=== PATIENT | female | born 1940 | race Caucasian/White ===

== ENCOUNTER 2017-01-05 12:52 | Inpatient (IN) ==
--- NOTE | 2017-01-05 12:57 | Emergency Department Note ---
Disposition Clinical Impression: Small bowel obstruction, Ventral hernia with bowel obstruction Disposition: Admitted As Inpatient Condition: Fair Referrals: Bj Card MD [Primary Care Provider] - Forms: ED Satisfaction Letter Nausea/Vomiting/Diarrhea HPI - General Chief complaint: ED Nausea/Vomiting/Diarrhea Stated complaint: nausea since last night Time Seen by Provider: 01/05/17 12:57 Source: EMS Limitations: no limitations Nursing Notes Reviewed: Yes Vital Signs Reviewed: Yes - History of Present Illness Pt Subjective Complaint: nausea, vomiting Onset (ago): day(s) (1) Description of emesis: watery Associated Abdominal Pain: Yes If pain, Location of pain: diffuse Severity: moderate Quality: cramping, stabbing Consistency: intermittent Improves with: nothing Worsens with: vomiting Context: history of abdominal surgery Associated symptoms: Reports: loss of appetite, nausea/vomiting. Denies: diaphoresis, fever/chills, shortness of breath - Related Data Home Medications Medication Instructions Recorded Confirmed ALPRAZolam [Xanax 0.5 MG Tablet] 0.5 mg PO DAILY PRN 03/09/16 03/09/16 Carbidopa/Levodopa 1 tab PO TID 03/09/16 03/09/16 [Carbidopa-Levodopa 25-100 Tab] HYDROcodone/Acet 5/325 mg [[place] 1 tab PO DAILY PRN 03/09/16 03/09/16 5-325 mg] Previous Rx's Medication Instructions Recorded Albuterol Sulfate [Albuterol 2 puff IH Q4HR #1 hfa.aer.ad 06/03/16 Inhaler] Allergies Allergy/AdvReac Type Severity Reaction Status Date / Time No Known Allergies Allergy Verified 03/09/16 15:13 All systems ED: reviewed and negative except as stated. Constitutional: Denies: fever, chills, weakness Gastrointestinal: Reports: abdominal pain. Denies: nausea, vomiting Past Medical History - Past Medical History Source: patient, old records reviewed, obtained from family, nursing notes reviewed Medical history: Reports: hyperlipidemia, hypertension, myocardial infarction Surgical history: Reports: non-contributory Psychiatric history: Reports: anxiety, depression - Social History Smoking Status: Never smoker Smokeless Tobacco Status: No Alcohol use: Reports: none Drug use: Reports: none Physical Exam - General Limitations: no limitations - Head Head exam: atraumatic, normocephalic, normal inspection - Eye Eye exam: Present: normal appearance, PERRL, EOMI - ENT ENT exam: normal exam, normal oropharynx, mucous membranes moist - Neck Neck exam: Present: normal inspection, full ROM, trachea midline - Chest Chest inspection: Present: normal inspection, symmetric chest wall rise - Respiratory Respiratory exam: Present: normal lung sounds bilaterally - Cardiovascular Cardiovascular exam: Present: regular rate, normal rhythm, normal heart sounds - Abdominal Exam Abdominal exam: Present: soft, guarding, normal bowel sounds Abdominal tenderness: Present: diffuse, moderate - Extremities Exam Extremities exam: Present: normal inspection, full ROM. Absent: tenderness, pedal edema - Back Exam Back exam: Present: normal inspection, full ROM. Absent: tenderness - Neurological Exam Neurological exam: Present: alert, oriented X3 - Psychiatric Psychiatric exam: Present: normal affect, normal mood - Skin Skin exam: Present: warm, dry, intact, normal color Course Course Narrative: reduced the hernia in the ER will make the hospitalist service he has a plan for surgical intervention tomorrow. - Consultations Consultation #1: dr. frances to see in ER now Time: 15:46 Vital Signs Temperature 98.1 F 01/05/17 12:53 Pulse Rate 100 01/05/17 12:53 Respiratory Rate 18 01/05/17 12:53 Blood Pressure 160/64 01/05/17 12:53 O2 Sat by Pulse Oximetry 98 01/05/17 12:53 Temperature 98.1 F 01/05/17 12:53 Pulse Rate 85 01/05/17 14:57 Respiratory Rate 18 01/05/17 14:57 Blood Pressure 151/80 01/05/17 14:57 O2 Sat by Pulse Oximetry 98 01/05/17 14:57 Oxygen Delivery Oxygen Delivery Room Air Nausea/Vomiting/Diarrhea - Differential Diagnosis Likely: gastroenteritis, drug-induced nausea and vomitting, dehydration, surgical process, bowel obstruction, ischemic bowel - Medical Records Medical records reviewed: Yes I reviewed the patient's medical records. - Lab Data Lab results reviewed: Yes I reviewed the patient's lab results. Result diagrams: 01/05/17 13:28 01/05/17 13:28 Lab Results 01/05/17 01/05/17 01/05/17 Range/Units 13:28 13:28 13:28 WBC 15.9 H (4.3-11.1) K/mcL RBC 4.90 (3.82-4.97) M/mcL Hgb 14.4 (11.5-15.4) g/dL Hct 42.7 (35.3-44.9) % MCV 87.1 (83.0-100.0) fL MCH 29.4 (28.0-33.3) pg MCHC 33.7 (31.6-35.5) g/dL RDW 12.9 (11.5-14.5) % Plt Count 230 (140-400) K/mcL MPV 9.6 (9.4-12.4) fL Immature Gran % 0.3 (0-4) % Seg Neutrophils % 91.4 % Lymphocytes % 4.4 % Monocytes % 3.5 % Eosinophils % 0.1 % Basophils % 0.3 % Neutrophils # 14.5 H (1.6-8.9) K/mcL Lymphocytes # 0.7 (0.6-4.6) K/mcL Monocytes # 0.6 (0.0-1.3) K/mcL Eosinophils # 0.0 (0.0-0.6) K/mcL Basophils # 0.0 (0.0-0.2) K/mcL PT 11.5 (9.4-12.1) Seconds INR 1.1 APTT 24.4 L (26.0-36.0) Seconds Sodium 140 (136-145) mEq/L Potassium 4.3 (3.5-4.5) mEq/L Chloride 103 (98-109) mEq/L Carbon Dioxide 28 (19-29) mEq/L BUN 15 (7-20) mg/dL Creatinine 0.96 (0.57-1.11) mg/dL Est GFR ( Amer) > 60 (> 60) Est GFR (Non-Af Amer) 56 L (> 60) BUN/Creatinine Ratio 16 (6-26) Glucose 141 H (70-99) mg/dL Calculated Osmolality 293 (280-300) Lactic Acid (0.5-2.2) mmol/L Calcium 10.1 (8.6-10.8) mg/dL Total Bilirubin 1.1 (0.2-1.2) mg/dL Direct Bilirubin 0.4 (0.0-0.5) mg/dL Indirect Bilirubin 0.7 (0.0-1.2) mg/dL AST 16 (5-34) Units/L ALT < 6 (0-55) Units/L Alkaline Phosphatase 71 (38-126) Units/L Troponin I (0-0.03) ng/mL Serum Total Protein 7.6 (6.0-8.3) g/dL Albumin 3.9 (3.5-5.0) g/dL Globulin 3.7 H (2.4-3.5) g/dL Albumin/Globulin Ratio 1.1 (1.1-2.2) Amylase 98 (25-125) Units/L Lipase 26 (8-78) Units/L TSH 1.902 (0.350-4.840) mcIU/mL 01/05/17 01/05/17 Range/Units 13:28 13:28 WBC (4.3-11.1) K/mcL RBC (3.82-4.97) M/mcL Hgb (11.5-15.4) g/dL Hct (35.3-44.9) % MCV (83.0-100.0) fL MCH (28.0-33.3) pg MCHC (31.6-35.5) g/dL RDW (11.5-14.5) % Plt Count (140-400) K/mcL MPV (9.4-12.4) fL Immature Gran % (0-4) % Seg Neutrophils % % Lymphocytes % % Monocytes % % Eosinophils % % Basophils % % Neutrophils # (1.6-8.9) K/mcL Lymphocytes # (0.6-4.6) K/mcL Monocytes # (0.0-1.3) K/mcL Eosinophils # (0.0-0.6) K/mcL Basophils # (0.0-0.2) K/mcL PT (9.4-12.1) Seconds INR APTT (26.0-36.0) Seconds Sodium (136-145) mEq/L Potassium (3.5-4.5) mEq/L Chloride (98-109) mEq/L Carbon Dioxide (19-29) mEq/L BUN (7-20) mg/dL Creatinine (0.57-1.11) mg/dL Est GFR ( Amer) (> 60) Est GFR (Non-Af Amer) (> 60) BUN/Creatinine Ratio (6-26) Glucose (70-99) mg/dL Calculated Osmolality (280-300) Lactic Acid 1.4 (0.5-2.2) mmol/L Calcium (8.6-10.8) mg/dL Total Bilirubin (0.2-1.2) mg/dL Direct Bilirubin (0.0-0.5) mg/dL Indirect Bilirubin (0.0-1.2) mg/dL AST (5-34) Units/L ALT (0-55) Units/L Alkaline Phosphatase (38-126) Units/L Troponin I 0.02 (0-0.03) ng/mL Serum Total Protein (6.0-8.3) g/dL Albumin (3.5-5.0) g/dL Globulin (2.4-3.5) g/dL Albumin/Globulin Ratio (1.1-2.2) Amylase (25-125) Units/L Lipase (8-78) Units/L TSH (0.350-4.840) mcIU/mL - Radiology Data Radiology results reviewed: Yes I reviewed the patient's radiology results.
[2017-01-05] MEDS ORDERED: Ondansetron 4 MG/2 ML VIAL IVP ONE ×2 (13:08→16:42)
[2017-01-05] MEDS ORDERED: 0.9 % Sodium Chloride 500 ML IVC ONE (13:08)
[2017-01-05 13:37] LABS: Basophils % 0.3 %; Eosinophils % 0.1 %; Hematocrit 42.7 % (35.3-44.9); Hemoglobin 14.4 g/dL (11.5-15.4); Immature Granulocytes % 0.3 % (0-4); Lymphocytes # 0.7 K/mcL (0.6-4.6); Lymphocytes % 4.4 %; Mean Corpuscular HGB Conc 33.7 g/dL (31.6-35.5); Mean Corpuscular Hemoglobin 29.4 pg (28.0-33.3); Mean Corpuscular Volume 87.1 fL (83.0-100.0); Mean Platelet Volume 9.6 fL (9.4-12.4); Monocytes # 0.6 K/mcL (0.0-1.3); Monocytes % 3.5 %; Neutrophils # 14.5 K/mcL (1.6-8.9); Platelet Count 230 K/mcL (140-400); Red Cell Distribution Width 12.9 % (11.5-14.5); Segmented Neutrophils % 91.4 %
[2017-01-05 13:45] LABS: INR 1.1; Prothrombin Time 11.5 Seconds (9.4-12.1)
[2017-01-05 13:48] LABS: Activated Partial Thrombo Time 24.4 Seconds (26.0-36.0)
[2017-01-05 13:54] LABS: Albumin 3.9 g/dL (3.5-5.0); Albumin/Globulin Ratio 1.1 (1.1-2.2); Alkaline Phosphatase 71 Units/L (38-126); Amylase 98 Units/L (25-125); Aspartate Amino Transferase 16 Units/L (5-34); BUN/Creatinine Ratio 16 (6-26); Bilirubin,Direct 0.4 mg/dL (0.0-0.5); Bilirubin,Indirect 0.7 mg/dL (0.0-1.2); Bilirubin,Total 1.1 mg/dL (0.2-1.2); Blood Urea Nitrogen 15 mg/dL (7-20); Calcium 10.1 mg/dL (8.6-10.8); Carbon Dioxide 28 mEq/L (19-29); Chloride 103 mEq/L (98-109); Globulin 3.7 g/dL (2.4-3.5); Glucose 141 mg/dL (70-99); Lipase 26 Units/L (8-78); Osmolality,Calculated 293 (280-300); Potassium 4.3 mEq/L (3.5-4.5); Sodium 140 mEq/L (136-145); Total Protein 7.6 g/dL (6.0-8.3); eGFR For African Americans > 60 (> 60); eGFR For Non-African Americans 56 (> 60)
[2017-01-05 13:55] LABS: Alanine Aminotransferase < 6 Units/L (0-55)
[2017-01-05 14:14] LABS: Thyroid Stimulating Hormone 1.902 mcIU/mL (0.350-4.840)
[2017-01-05] MEDS ORDERED: *HR* Morphine 2 MG/ML SYRINGE IVP ONE (16:42)
[2017-01-05] MEDS ORDERED: Naloxone 0.4 MG/ML INJ IVP PRN (18:03)
[2017-01-05] MEDS ORDERED: Ondansetron 4 MG/2 ML VIAL IVP PRN (18:03)
[2017-01-05] MEDS ORDERED: *HR* LORazepam 2 MG/ML VIAL IVP PRN (18:12)
[2017-01-05] MEDS ORDERED: 0.9 % Sodium Chloride 1,000 ML IVC SCH (18:15)
--- NOTE | 2017-01-05 18:17 | Internal Med History&Physical ---
<Benji Adam H - Last Filed: 01/05/17 19:31> Date of Encounter: 01/05/17 Internal Medicine - H&P: HPI History of present illness: Ms. Gallo is a 76 year old female Internal Medicine - H&P: Meds ALPRAZolam [Xanax 0.5 MG Tablet] 0.5 mg PO BID PRN 03/09/16 [History] Carbidopa/Levodopa [Carbidopa-Levodopa 25-100 Tab] 1 tab PO TID 03/09/16 [ History] HYDROcodone/Acet 5/325 mg [[place] 5-325 mg] 1 tab PO BID PRN 03/09/16 [History] Albuterol Sulfate [Albuterol Inhaler] 2 puff IH Q4HR PRN 01/05/17 [History] Clopidogrel [Plavix] 75 mg PO DAILY 01/05/17 [History] DULoxetine [Cymbalta] 30 mg PO DAILY 01/05/17 [History] Metoprolol [Lopressor] 12.5 mg PO BID 01/05/17 [History] Allergies No Known Allergies Allergy (Verified 03/09/16 15:13) All Systems PM: A 10-system review of systems was performed and is negative for pertinent findings except as documented above in the HPI. - Constitutional Vitals: Temp Pulse Resp BP Pulse Ox 98.5 F 82 18 124/77 95 01/05/17 18:30 01/05/17 18:30 01/05/17 18:30 01/05/17 18:30 01/05/17 18:30 Internal Med - H&P Results - Labs CBC & Chem 7: 01/05/17 13:28 01/05/17 13:28 - Attending Attestation 1. Small bowel obstruction secondary to periumbilical incarcerated hernia status post manual reduction Nothing by mouth, consider NG tube if worse, the patient wants to avoid having the NG tube at the moment. The pain is controlled and she is not having any nausea after having the manual reduction Surgery was consulted. Continue IV fluids, morphine as needed 2. Hypertension, stable 3. History of CAD, continue Lopressor IV with holding parameters Hold aspirin and Plavix for possible surgical procedure in the morning 4. History of AAA 5. Hyperlipidemia 6. Parkinson's, continue Sinemet next 7. Anxiety, start Ativan as needed Aleksandra IV for GI prophylaxis and sequential compression devices for DVT prophylaxis. The patient will be admitted as inpatient, expected to stay more than 2 midnights. Full code. Time spent on this admission 40 minutes I examined this patient and my medical decision-making was reviewed with the REFRIGERATION SUPERVISOR/PA/Advanced Practice Nurse/Resident Physician. I agree with the documented findings, disposition and treatment plan as described except to the extent set forth below. <Sharita Luna M - Last Filed: 01/05/17 22:00> Date of Encounter: 01/05/17 Time of Encounter: 18:14 Assessment and Plan (1) Ventral hernia with bowel obstruction Current visit: Yes Status: Acute Patient reports constipation for several days, sudden nausea, vomiting and abdominal pain starting last evening. CT abdomen and pelvis showed ventral hernia with small bowel obstruction. Surgery consulted, Dr. Son assessed patient in ED, possible surgery tomorrow. NPO Hold plavix for planned surgery. Morphine PRN for abdominal pain Zofran PRN for nausea Narcan PRN for respiratory depression. IV fluids 0.9NS at 100mL/hr (2) Hypertension Current visit: No Status: Acute Metoprolol 2.5mg IVP Q6 hrs. Hold for HR < 60. Qualifiers: Hypertension type: essential hypertension Qualified Code(s): I10 - Essential (primary) hypertension (3) Parkinson disease Current visit: Yes Status: Acute Patient with parkinson's disease, on carbidopa/levodopa at home. Restart home dose once tolerating PO. (4) Nausea & vomiting Current visit: Yes Status: Acute Patient reporting nausea and vomiting starting last evening. Reports now just having "dry-heaves". Zofran PRN for nausea. If vomiting persists, will order NG tube. Qualifiers: Vomiting type: cyclical vomiting Vomiting Intractability: non-intractable Qualified Code(s): G43.A0 - Cyclical vomiting, not intractable (5) Abdominal pain Current visit: Yes Status: Acute secondary to ventral hernia and small bowel obstruction. Morphine IVP PRN for pain. Narcan PRN for respiratory depression. Qualifiers: Abdominal location: generalized Qualified Code(s): R10.84 - Generalized abdominal pain (6) DVT prophylaxis Current visit: Yes Status: Acute sequential compression devices start heparin prophylaxis after surgery tomorrow. Internal Medicine - H&P: HPI Chief complaint: nausea, vomiting, diarrhea Admitted From: Emergency Dept Plans for Post Hospital Care: Home History of present illness: Ms. Gallo is a 76 year old female with hypertension, hyperlipidemia, history of [place], Parkinson's disease, history of AAA repair presents to the emergency department today with complaints of nausea, vomiting and abdominal pain. Patient reports that she had sudden onset of nausea and vomiting last evening at 10 PM. At this point vomiting is just dry heaves, and not getting anything up, emesis is described as nonbilious nonbloody. She had difficulty with bowel movements over the last week, describing constipation. She reports headache yesterday, denies any lightheadedness, chest pain, palpitations, shortness of breath. She reports some chills and sweats this morning. Evaluation in the emergency department revealed elevated white blood cell count of 15.9. Normal lactate at 1.4, normal troponin at 0.02. CT of the abdomen and pelvis showed periumbilical hernia containing small bowel with evidence of small bowel obstruction, distal and terminal ileum collapsed. On exam, patient alert and oriented, in no acute distress, with regular rate and rhythm, lungs are clear bilaterally to auscultation. Abdomen is tender to palpation, hernias palpated to the left of umbilicus, tenderness to palpation. Past Med Surg Social Fam HX - Past Medical History Medical history: coronary artery disease, hyperlipidemia, hypertension, myocardial infarction, other (Parkinson's disease) Psychiatric history: anxiety, depression - Past Surgical History Surgical History: angioplasty/stent, herniorrhaphy, other (AAA repair) - Social History Smoking Status: Never smoker Smokeless Tobacco Status: No Alcohol use: none Drug use: none - Family History Mother Living Status: Hx Family Respiratory Disorders: Yes (COPD) Father Living Status: Cause of : CVA Hx Family Cardiac Disorders: Yes Hx Family Neurologic Disorders: Yes (Dementia) All Systems PM: A 10-system review of systems was performed and is negative for pertinent findings except as documented above in the HPI. - Constitutional Constitutional: chills, no fever(s), no night sweats - EENT Eyes: no change in vision, no discharge, no pain, no photophobia Ears: no ear discharge, no ear pain, no tinnitus Nose, mouth and throat: no dysphagia, no nasal discharge, no neck pain, no sore throat - Cardiovascular Cardiovascular ROS IM: no chest pain, no diaphoresis, no dyspnea, no lightheadedness, no palpitations, no syncope - Respiratory Respiratory: no cough, no dyspnea, no wheezing, no excessive phlegm production - Gastrointestinal Gastrointestinal: abdominal pain, constipation, nausea, vomiting, no diarrhea, no hematemesis, no hematochezia, no melena - Genitourinary Genitourinary: no change in urinary stream, no dysuria, no flank pain, no hematuria - Musculoskeletal Musculoskeletal ROS IM: no numbness, no tingling - Integumentary Integumentary IM: no rash, no unusual bruising - Neurological Neurological ROS: no confusion, no convulsions, no focal weakness, no numbness, no tingling, no tremor(s) - Hematologic/Lymphatic Hematologic/Lymphatic: no easy bruising - Constitutional Vitals: Temp Pulse Resp BP Pulse Ox 98.1 F 85 18 116/76 98 01/05/17 12:53 01/05/17 14:57 01/05/17 17:44 01/05/17 17:44 01/05/17 14:57 General appearance: Present: A&O X 3, pleasant, no acute distress - Head Head exam: Present: atraumatic, normocephalic - Eye Eye exam: Present: PERRL, conjuntiva pink, sclera anicteric Pupils: Present: PERRL - Neck Neck exam general surgery: Present: supple, trachea midline. Absent: lymphadenopathy - Respiratory Respiratory exam: Present: CTAB. Absent: accessory muscle use, rales, rhonchi, wheezes - Cardiovascular Cardiovascular exam: Present: RRR, +S1, +S2. Absent: diastolic murmur, gallop, rubs, systolic murmur - GI/Abdominal GI/Abdominal exam: Present: hernia, hypoactive bowel sounds, soft, tenderness. Absent: distended - Extremities Exam Extremities exam: Present: warm, radial pulses palpable and symetrical. Absent : calf tenderness, cyanotic, pedal edema - Neurological Exam Neurological exam: Present: CN II-XII intact, oriented X3, no focal deficits. Absent: facial droop, speech deficit - Skin Skin exam: Present: dry, intact Internal Med - H&P Results - Labs CBC & Chem 7: 01/05/17 13:28 01/05/17 13:28 Labs: All Lab Results (24 Hours) 01/05/17 01/05/17 01/05/17 Range/Units 13:28 13:28 13:28 WBC 15.9 H (4.3-11.1) K/mcL RBC 4.90 (3.82-4.97) M/mcL Hgb 14.4 (11.5-15.4) g/dL Hct 42.7 (35.3-44.9) % MCV 87.1 (83.0-100.0) fL MCH 29.4 (28.0-33.3) pg MCHC 33.7 (31.6-35.5) g/dL RDW 12.9 (11.5-14.5) % Plt Count 230 (140-400) K/mcL MPV 9.6 (9.4-12.4) fL Immature Gran % 0.3 (0-4) % Seg Neutrophils % 91.4 % Lymphocytes % 4.4 % Monocytes % 3.5 % Eosinophils % 0.1 % Basophils % 0.3 % Neutrophils # 14.5 H (1.6-8.9) K/mcL Lymphocytes # 0.7 (0.6-4.6) K/mcL Monocytes # 0.6 (0.0-1.3) K/mcL Eosinophils # 0.0 (0.0-0.6) K/mcL Basophils # 0.0 (0.0-0.2) K/mcL PT 11.5 (9.4-12.1) Seconds INR 1.1 APTT 24.4 L (26.0-36.0) Seconds Sodium 140 (136-145) mEq/L Potassium 4.3 (3.5-4.5) mEq/L Chloride 103 (98-109) mEq/L Carbon Dioxide 28 (19-29) mEq/L BUN 15 (7-20) mg/dL Creatinine 0.96 (0.57-1.11) mg/dL Est GFR ( Amer) > 60 (> 60) Est GFR (Non-Af Amer) 56 L (> 60) BUN/Creatinine Ratio 16 (6-26) Glucose 141 H (70-99) mg/dL Calculated Osmolality 293 (280-300) Lactic Acid (0.5-2.2) mmol/L Calcium 10.1 (8.6-10.8) mg/dL Total Bilirubin 1.1 (0.2-1.2) mg/dL Direct Bilirubin 0.4 (0.0-0.5) mg/dL Indirect Bilirubin 0.7 (0.0-1.2) mg/dL AST 16 (5-34) Units/L ALT < 6 (0-55) Units/L Alkaline Phosphatase 71 (38-126) Units/L Troponin I (0-0.03) ng/mL Serum Total Protein 7.6 (6.0-8.3) g/dL Albumin 3.9 (3.5-5.0) g/dL Globulin 3.7 H (2.4-3.5) g/dL Albumin/Globulin Ratio 1.1 (1.1-2.2) Amylase 98 (25-125) Units/L Lipase 26 (8-78) Units/L TSH 1.902 (0.350-4.840) mcIU/mL 01/05/17 01/05/17 Range/Units 13:28 13:28 WBC (4.3-11.1) K/mcL RBC (3.82-4.97) M/mcL Hgb (11.5-15.4) g/dL Hct (35.3-44.9) % MCV (83.0-100.0) fL MCH (28.0-33.3) pg MCHC (31.6-35.5) g/dL RDW (11.5-14.5) % Plt Count (140-400) K/mcL MPV (9.4-12.4) fL Immature Gran % (0-4) % Seg Neutrophils % % Lymphocytes % % Monocytes % % Eosinophils % % Basophils % % Neutrophils # (1.6-8.9) K/mcL Lymphocytes # (0.6-4.6) K/mcL Monocytes # (0.0-1.3) K/mcL Eosinophils # (0.0-0.6) K/mcL Basophils # (0.0-0.2) K/mcL PT (9.4-12.1) Seconds INR APTT (26.0-36.0) Seconds Sodium (136-145) mEq/L Potassium (3.5-4.5) mEq/L Chloride (98-109) mEq/L Carbon Dioxide (19-29) mEq/L BUN (7-20) mg/dL Creatinine (0.57-1.11) mg/dL Est GFR ( Amer) (> 60) Est GFR (Non-Af Amer) (> 60) BUN/Creatinine Ratio (6-26) Glucose (70-99) mg/dL Calculated Osmolality (280-300) Lactic Acid 1.4 (0.5-2.2) mmol/L Calcium (8.6-10.8) mg/dL Total Bilirubin (0.2-1.2) mg/dL Direct Bilirubin (0.0-0.5) mg/dL Indirect Bilirubin (0.0-1.2) mg/dL AST (5-34) Units/L ALT (0-55) Units/L Alkaline Phosphatase (38-126) Units/L Troponin I 0.02 (0-0.03) ng/mL Serum Total Protein (6.0-8.3) g/dL Albumin (3.5-5.0) g/dL Globulin (2.4-3.5) g/dL Albumin/Globulin Ratio (1.1-2.2) Amylase (25-125) Units/L Lipase (8-78) Units/L TSH (0.350-4.840) mcIU/mL - Diagnostic Studies CT scan - abdomen Additional comments: Abdomen/Pelvis CT 01/05/17 14:01 IMPRESSION: Periumbilical hernia containing small bowel with evidence of small-bowel obstruction. The distal and terminal ileum are collapsed. Large paraesophageal hiatal hernia, present on previous exams. There is gastric distention, and small bowel distention proximal to the periumbilical hernia. D/ / Mikey Yap MD / iMkey Yap MD Interpreting Provider: Mikey Yap MD
[2017-01-05] MEDS ORDERED: ALPRAZolam 0.5 MG TABLET PO PRN (19:29)
[2017-01-05] MEDS: Carbidopa/Levodopa 25/100 TABLET PO SCH (20:08)
[2017-01-05] MEDS: 0.9 % Sodium Chloride 1,000 ML IVC SCH (20:09)
[2017-01-05] MEDS: *HR* Metoprolol 5 MG/5 ML VIAL IVP SCH (23:57)
[2017-01-06 00:45] LABS: Bilirubin,Urine Small (Negative); Blood,Urine Negative (Negative); Clarity,Urine Cloudy (Clear); Color,Urine Dark Yellow (Yellow); Glucose,Urine (UA) Normal (Normal); Ketones,Urine 15 mg/dL (Negative); Leukocyte Esterase,Urine Negative (Negative); Nitrite,Urine Negative (Negative); Protein,Urine 30 mg/dL (Neg-Trace); Specific Gravity,Urine 1.029 (1.010-1.025); Urobilinogen,Urine Normal (Normal)
[2017-01-06 00:48] LABS: Bacteria,Urine None Seen per hpf (None-Few); Hyaline Casts,Urine None Seen per lpf (None-Few); Squamous Epithelial Cell,Urine Many per lpf (None-Few)
[2017-01-06] MEDS: 0.9 % Sodium Chloride 1,000 ML IVC SCH ×3 (03:11→20:42)
[2017-01-06 05:27] LABS: Basophils # 0.1 K/mcL (0.0-0.2); Basophils % 0.5 %; Eosinophils # 0.1 K/mcL (0.0-0.6); Eosinophils % 0.8 %; Hematocrit 34.5 % (35.3-44.9); Immature Granulocytes % 0.5 % (0-4); Lymphocytes % 27.5 %; Mean Corpuscular HGB Conc 33.6 g/dL (31.6-35.5); Mean Corpuscular Hemoglobin 30.6 pg (28.0-33.3); Mean Platelet Volume 10.2 fL (9.4-12.4); Monocytes % 8.9 %; Neutrophils # 6.8 K/mcL (1.6-8.9); Platelet Count 193 K/mcL (140-400); Red Blood Count 3.79 M/mcL (3.82-4.97); Red Cell Distribution Width 13.2 % (11.5-14.5); Segmented Neutrophils % 61.8 %
[2017-01-06 05:29] LABS: Hemoglobin 11.6 g/dL (11.5-15.4)
[2017-01-06 05:41] LABS: BUN/Creatinine Ratio 16 (6-26); Blood Urea Nitrogen 13 mg/dL (7-20); Carbon Dioxide 22 mEq/L (19-29); Chloride 108 mEq/L (98-109); Glucose 89 mg/dL (70-99); Osmolality,Calculated 292 (280-300); Potassium 3.9 mEq/L (3.5-4.5); Sodium 141 mEq/L (136-145); eGFR For African Americans > 60 (> 60); eGFR For Non-African Americans > 60 (> 60)
[2017-01-06 05:42] LABS: Calcium 8.5 mg/dL (8.6-10.8)
[2017-01-06] MEDS: *HR* Metoprolol 5 MG/5 ML VIAL IVP SCH ×3 (05:49→16:47)
[2017-01-06] MEDS: Carbidopa/Levodopa 25/100 TABLET PO SCH ×3 (08:23→20:40)
[2017-01-06] MEDS: Pantoprazole 40 MG VIAL IVP SCH (08:23)
--- NOTE | 2017-01-06 09:13 | General Surgery Consult Note ---
Date of Encounter: 01/06/17 Time of Encounter: 15:45 History of Present Illness Consult date: 01/05/17 Requesting physician: Mikey Quezada History of present illness: 76-year-old female referred to surgical services after presenting to the emergency department with abdominal pain, nausea and vomiting. CT demonstrated a ventral incisional hernia with prolapsing small bowel and resultant small bowel obstruction. Patient is familiar to me having undergone an exploratory celiotomy lysis of adhesions with release of small bowel obstruction approximately 5 years ago. Patient also underwent concomitant repair of a ventral hernia in the left lower quadrant using Parietex 15x 20 cm Composite hernia patch. This hernia repair is still intact. The CT was obtained for further evaluation of the patient's symptoms. Findings include the presence of a large paraesophageal hernia with fluid distention of the stomach; high attenuation material was present in the coronary arteries consistent with stenting or atherosclerotic calcification; cholelithiasis; unchanged left small ovarian dermoid summary: Chronic diverticulosis without evidence of diverticulitis; a sizable periumbilical hernia containing dilated loops of small bowel with the distal bowel appearing decompressed consistent with a small bowel obstruction. White count was elevated at 15.9; neutrophils were elevated at 14.5% PT/INR, electrolytes, BUN, creatinine were within normal limits. Based on the patient's symptomatology and radiologic findings surgical consultation was placed. I visited the patient in the emergency department and was able to manually reduce the incarcerated hernia. In the presence of family , I examined the patient, reduced the incarcerated ventral hernia, and discussed further surgical intervention. The patient was reluctant to surgical intervention. I discussed this with the ER physician and hospitalist service, overnight admission for into new care and monitoring was arranged. Past medical history: CAD with prior NJ, s/p stents; abdominal aortic aneurysm, surgically repaired; hypertension; hyperlipidemia; parkinsonism; diverticulosis coli without evidence of diverticulitis; cholelithiasis without obvious symptomatology; chronic anxiety, depression Surgical history: Transabdominal aortic aneurysm repair; angioplasty with stents ; exploratory celiotomy with lysis of adhesions, release of small bowel obstruction and repair of lower quadrant, wall hernia with mesh Allergies: No known drug allergies Medications on presentation include: Alprazolam 0.5 mg by mouth twice a day when necessary Hydrocodone/acetaminophen 5/325 one tablet by mouth twice a day when necessary Albuterol 2 puffs inhalation every 4 hours when necessary Clopidogrel 75 mg by mouth daily Duloxetine 30 mg by mouth daily Metoprolol 12.5 mg by mouth twice a day Social history: Patient denies ever smoking; she denies any alcohol or illicit drug use. Family history: Mother with COPD; father with previous stroke; is also a family history of dementia and cardiac disease Physical examination this is a 76-year-old frail female resting comfortably in her emergency department bed. Patient has been afebrile, 98.1; pulse 100, respirations 18, blood pressure 160/64 Skin: Warm, no obvious jaundice Lungs: Clear to auscultation with no abdominal pain and deep inspiration Cardiac: Rate was regular, there were no appreciable murmurs Abdomen: Soft with obvious tender periumbilical ventral hernia with prolapsing tissue palpable subcutaneously. This was manually reduced with minimal difficulty. Following reduction of the incarcerated hernia, patient admitted to relief of her abdominal pain. Extremities: No obvious clubbing cyanosis or edema Impression: 76 yo, frail patient, for surgical services for evaluation of a small bowel obstruction with radiologic evidence of a triple incisional hernia containing small bowel. This these films were personally reviewed with [facility] radiology interpretation including small bowel obstruction related to this ventral hernia. The incarcerated hernia was manually reduced with relief of symptoms. Treatment options include continued expectant follow-up with risk of recurrent incarceration or strangulation versus surgical repair. Surgical repair would be completed via an open method with a mesh prosthesis. Surgical risks including hemorrhage, infection, abdominal abscess, injury to adjacent structures, the majority failure, pneumonia, and cardiac risks such as dysrhythmia or recurrent NJ. Patient was reluctant to consider surgery. Follow-up the following day, 01/06/17, the patient was feeling much improved. She denied any abdominal pain. No recurrent nausea or vomiting. The patient had remained afebrile through the night and hemodynamically stable. Most recent vital signs show temperature of 98.0; pulse 60, respirations 18, blood pressure 149/73. The leukocytosis on presentation had resolved, white count currently 11.0; hemoglobin had fallen to 11.6 with hematocrit 34.4, but this is likely reflective of IV fluids administered since presentation to the emergency department. Electrolytes, BUN, creatinine, remained within normal limits. Urinalysis was abnormal with pH of 6.0; specific gravity 1.029, urine protein 30, urine ketones 15, urine bilirubin - small; 5-15 red cells per high- powered field and 3-5 white cells per high-powered field. On my examination patient had no abdominal pain/tenderness, the ventral incisional hernia had been successfully reduced. Bowel sounds were active. There were no appreciable intra-abdominal masses. The patient was complaining of dysphagia dating back several weeks. She reports recently being sent to radiology for stray examination of these complaints. The patient expressed concern and wished to undergo an upper endoscopy to assess these complaints further. She was still not willing to consider surgical intervention. I discussed with her the risks of recurrent incarceration and possible strangulation requiring emergent surgery. Emergent surgery would carry with potential increase of the risks already enumerated. Based on the patient's complaints and request for endoscopic evaluation - an EGD will be arranged using IV medications. Further intervention of the ventral hernia will be deferred per the patient' s wishes. Past Med Surg Social Fam HX - Past Medical History Medical history: coronary artery disease, hyperlipidemia, hypertension, myocardial infarction, other (Parkinson's disease) Psychiatric history: anxiety, depression - Past Surgical History Surgical History: angioplasty/stent, herniorrhaphy, other (AAA repair) - Social History Smoking Status: Never smoker Smokeless Tobacco Status: No Alcohol use: none Drug use: none - Family History Mother Living Status: Hx Family Respiratory Disorders: Yes (COPD) Father Living Status: Cause of : CVA Hx Family Cardiac Disorders: Yes Hx Family Neurologic Disorders: Yes (Dementia) Medications and Allergies ALPRAZolam [Xanax 0.5 MG Tablet] 0.5 mg PO BID PRN 03/09/16 [History] Carbidopa/Levodopa [Carbidopa-Levodopa 25-100 Tab] 1 tab PO TID 03/09/16 [ History] HYDROcodone/Acet 5/325 mg [Ruffin 5-325 mg] 1 tab PO BID PRN 03/09/16 [History] Albuterol Sulfate [Albuterol Inhaler] 2 puff IH Q4HR PRN 01/05/17 [History] Clopidogrel [Plavix] 75 mg PO DAILY 01/05/17 [History] DULoxetine [Cymbalta] 30 mg PO DAILY 01/05/17 [History] Metoprolol [Lopressor] 12.5 mg PO BID 01/05/17 [History] Allergies No Known Allergies Allergy (Verified 03/09/16 15:13) Review of Systems All systems PM: A 10-system review of systems was performed and is negative for pertinent findings except as documented above in the HPI. General Surgery Exam Initial Vital Signs Temp Pulse Resp BP Pulse Ox 98.1 F 100 18 160/64 98 01/05/17 12:53 01/05/17 12:53 01/05/17 12:53 01/05/17 12:53 01/05/17 12:53 Exam Initial Vital Signs Temp Pulse Resp BP Pulse Ox 98.1 F 100 18 160/64 98 01/05/17 12:53 01/05/17 12:53 01/05/17 12:53 01/05/17 12:53 01/05/17 12:53 Results - Labs 01/06/17 04:29 01/06/17 04:29 Abnormal lab results RBC 3.79 M/mcL (3.82-4.97) L 01/06/17 04:29 Hct 34.5 % (35.3-44.9) L 01/06/17 04:29 APTT 24.4 Seconds (26.0-36.0) L 01/05/17 13:28 POC Glucose 95 (58-89) H 01/06/17 05:35 Calcium 8.5 mg/dL (8.6-10.8) L D 01/06/17 04:29 Globulin 3.7 g/dL (2.4-3.5) H 01/05/17 13:28 Urine Clarity Cloudy (Clear) A 01/06/17 00:38 Ur Specific [place] 1.029 (1.010-1.025) H 01/06/17 00:38 Urine Protein 30 mg/dL (Neg-Trace) H 01/06/17 00:38 Urine Ketones 15 mg/dL (Negative) H 01/06/17 00:38 Urine Bilirubin Small (Negative) H 01/06/17 00:38 Urine Microscopic RBC 5-15 per hpf (0-3) H 01/06/17 00:38 Urine Microscopic WBC 3-5 per hpf (0-3) H 01/06/17 00:38 Ur Squamous Epith Cells Many per lpf (None-Few) H 01/06/17 00:38 Diabetes panel 01/06/17 Range/Units 04:29 Sodium 141 (136-145) mEq/L Potassium 3.9 (3.5-4.5) mEq/L Chloride 108 (98-109) mEq/L Carbon Dioxide 22 (19-29) mEq/L BUN 13 (7-20) mg/dL Creatinine 0.80 (0.57-1.11) mg/dL Glucose 89 (70-99) mg/dL Calcium 8.5 L D (8.6-10.8) mg/dL Calcium panel 01/06/17 Range/Units 04:29 Calcium 8.5 L D (8.6-10.8) mg/dL Pituitary panel 01/06/17 Range/Units 04:29 Sodium 141 (136-145) mEq/L Potassium 3.9 (3.5-4.5) mEq/L Chloride 108 (98-109) mEq/L Carbon Dioxide 22 (19-29) mEq/L BUN 13 (7-20) mg/dL Creatinine 0.80 (0.57-1.11) mg/dL Glucose 89 (70-99) mg/dL Calcium 8.5 L D (8.6-10.8) mg/dL Adrenal panel 01/06/17 Range/Units 04:29 Sodium 141 (136-145) mEq/L Potassium 3.9 (3.5-4.5) mEq/L Chloride 108 (98-109) mEq/L Carbon Dioxide 22 (19-29) mEq/L BUN 13 (7-20) mg/dL Creatinine 0.80 (0.57-1.11) mg/dL Glucose 89 (70-99) mg/dL Calcium 8.5 L D (8.6-10.8) mg/dL All other labs normal. Consult Discharge Plan - Plan Referrals: Bj Card MD [Primary Care Provider] -
[2017-01-06] MEDS ORDERED: *HR* Midazolam HCl 5 MG/5 ML VIAL IVP ONE (10:08)
[2017-01-06] MEDS ORDERED: *HR* FentaNYL (PF) 100 MCG/2 ML VIAL ONE (10:08)
--- NOTE | 2017-01-06 10:11 | Internal Med Progress Note ---
Date of Encounter: 01/06/17 Time of Encounter: 17:39 - Assessment and plan (1) Chest pain Current Visit: Yes Status: Acute Assessment and plan: it appears that her chest pain is midsternal area Epigastrium where she still fee. Quite atypical for cardiac chest pain. Troponins EKG and chest x-ray are unremarkable. Qualifiers: Chest pain type: other chest pain Qualified Code(s): R07.89 - Other chest pain; R07.8 - Other chest pain (2) Hypertension Current Visit: No Status: Acute Qualifiers: Hypertension type: essential hypertension Qualified Code(s): I10 - Essential (primary) hypertension (3) Hyperlipidemia Current Visit: No Status: Acute Qualifiers: Hyperlipidemia type: unspecified Qualified Code(s): E78.5 - Hyperlipidemia , unspecified (4) Ventral hernia with bowel obstruction Current Visit: Yes Status: Acute Assessment and plan: patient presented with an incarcerated ventral he which was manually reduced by Dr. Saleem and since then she has been able to pass . - Subjective Interval history: patient Laurie Murray is a 76-year-old femalecame in withan incarcerated ventral hernia General surgeon Dr. Monteiro consulted who manually reduce the hernia. She is is jack frame tender in periumbilica No nausea vomiting diarrhea she is passing some gas. She is on clear. She denies any other symptoms - Constitutional Vitals: Temp Pulse Resp BP Pulse Ox 98 F 60 18 149/73 96 01/06/17 08:15 01/06/17 08:15 01/06/17 08:15 01/06/17 08:51 01/06/17 08:15 General appearance: Present: A&O X 3, pleasant, no acute distress - Head Head exam: Present: atraumatic, normocephalic - Eye Eye exam: Present: PERRL, conjuntiva pink, sclera anicteric Pupils: Present: PERRL - Neck Neck exam general surgery: Present: supple, trachea midline. Absent: lymphadenopathy - Respiratory Respiratory exam: Present: CTAB. Absent: accessory muscle use, rales, rhonchi, wheezes - Cardiovascular Cardiovascular exam: Present: RRR, +S1, +S2. Absent: diastolic murmur, gallop, rubs, systolic murmur - GI/Abdominal GI/Abdominal exam: Present: soft, no peritoneal signs. Absent: distended, tenderness Additional comments: abdomen has some periumbilical tendernessbut otherwise no distention bowel sounds no organomegaly - Extremities Exam Extremities exam: Present: warm, radial pulses palpable and symetrical. Absent : calf tenderness, cyanotic, pedal edema - Neurological Exam Neurological exam: Present: CN II-XII intact, oriented X3, no focal deficits. Absent: pronater drift, facial droop, speech deficit - Skin Skin exam: Present: dry, intact Internal Medicine: Result - Labs CBC & Chem 7: 01/06/17 04:29 01/06/17 04:29 Labs: Short CBC 01/06/17 Range/Units 04:29 WBC 11.0 (4.3-11.1) K/mcL Hgb 11.6 D (11.5-15.4) g/dL Hct 34.5 L (35.3-44.9) % Plt Count 193 (140-400) K/mcL Neutrophils # 6.8 (1.6-8.9) K/mcL BMP 01/06/17 04:29 Sodium 141 Potassium 3.9 Chloride 108 Carbon Dioxide 22 BUN 13 Creatinine 0.80 Glucose 89 Calcium 8.5 L D Urine 01/06/17 Range/Units 00:38 Urine Color Dark Yellow (Yellow) Urine Clarity Cloudy A (Clear) Urine pH 6.0 (5.0-8.0) pH Units Ur Specific [place] 1.029 H (1.010-1.025) Urine Protein 30 H (Neg-Trace) mg/dL Urine Glucose (UA) Normal (Normal) mg/dL - ABG Interpretation ABG results: PT/INR, D-dimer PT 11.5 Seconds (9.4-12.1) 01/05/17 13:28 - VTE Documentation of Mechanical Device: Intermittent pneumatic compression device Consult Discharge Plan - Plan Referrals: Bj Card MD [Primary Care Provider] -
--- NOTE | 2017-01-06 10:44 | Electrocardiograph Report ---
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
[2017-01-06] MEDS ORDERED: Tetracaine/Benzocaine/Butamben 200MG/SPRAY (100SPY/BOT) MM ONE (10:45)
[2017-01-06] MEDS ORDERED: Simethicone 40 MG/0.6 ML MLS IR ONE (10:45)
[2017-01-06] MEDS ORDERED: 0.9 % Sodium Chloride 1,000 ML IVC SCH (10:45)
[2017-01-06] MEDS: *HR* Midazolam HCl 5 MG/5 ML VIAL IVP PRN ×2 (10:50→10:53)
[2017-01-06] MEDS: *HR* FentaNYL (PF) 100 MCG/2 ML VIAL IVP PRN ×2 (10:50→11:00)
[2017-01-06] MEDS ORDERED: *HR* HYDROcodone/Acet 5/325 mg TABLET PO ONE (21:48)
[2017-01-07] MEDS: *HR* Metoprolol 5 MG/5 ML VIAL IVP SCH ×3 (01:18→11:32)
[2017-01-07] MEDS: *HR* Morphine 2 MG/ML SYRINGE IVP PRN ×2 (04:29→08:20)
[2017-01-07] MEDS: 0.9 % Sodium Chloride 1,000 ML IVC SCH (06:59)
[2017-01-07] MEDS: Pantoprazole 40 MG VIAL IVP SCH (08:19)
[2017-01-07] MEDS: Carbidopa/Levodopa 25/100 TABLET PO SCH ×3 (08:20→20:55)
[2017-01-07 08:48] LABS: Basophils # 0.1 K/mcL (0.0-0.2); Basophils % 0.6 %; Eosinophils # 0.3 K/mcL (0.0-0.6); Eosinophils % 2.8 %; Hemoglobin 12.3 g/dL (11.5-15.4); Immature Granulocytes % 0.3 % (0-4); Immature Platelets 3.1 % (1.1-6.1); Lymphocytes # 3.2 K/mcL (0.6-4.6); Lymphocytes % 34.4 %; Mean Corpuscular HGB Conc 33.2 g/dL (31.6-35.5); Mean Corpuscular Hemoglobin 29.9 pg (28.0-33.3); Mean Corpuscular Volume 89.8 fL (83.0-100.0); Mean Platelet Volume 9.6 fL (9.4-12.4); Monocytes # 0.8 K/mcL (0.0-1.3); Monocytes % 8.2 %; Neutrophils # 5.1 K/mcL (1.6-8.9); Platelet Count 211 K/mcL (140-400); Red Blood Count 4.12 M/mcL (3.82-4.97); Red Cell Distribution Width 12.9 % (11.5-14.5); Segmented Neutrophils % 53.7 %
[2017-01-07 09:02] LABS: Albumin 3.2 g/dL (3.5-5.0); Albumin/Globulin Ratio 1.1 (1.1-2.2); Alkaline Phosphatase 53 Units/L (38-126); Aspartate Amino Transferase 12 Units/L (5-34); BUN/Creatinine Ratio 7 (6-26); Calcium 8.6 mg/dL (8.6-10.8); Carbon Dioxide 26 mEq/L (19-29); Chloride 109 mEq/L (98-109); Glucose 85 mg/dL (70-99); Osmolality,Calculated 289 (280-300); Potassium 3.2 mEq/L (3.5-4.5); Sodium 141 mEq/L (136-145); Total Protein 6.2 g/dL (6.0-8.3); eGFR For African Americans > 60 (> 60); eGFR For Non-African Americans > 60 (> 60)
[2017-01-07 09:03] LABS: Alanine Aminotransferase < 6 Units/L (0-55); Blood Urea Nitrogen 5 mg/dL (7-20)
--- NOTE | 2017-01-07 12:53 | General Surgery Progress Note ---
Date of Encounter: 01/07/17 Time of Encounter: 12:43 Subjective Patient reports: no new complaints, feels better Narrative: General Surgery - hospital day #2 Patient seated at bedside, much more awake and animated. Voicing no new complaints. Still complaining of difficulty swallowing but I believe this is due to Parkinsonism and the patient's resultant chronic tremor. No significant strictures, webs or stenosis detected at the time of EGD. Patient with large hiatal hernia - stable. Visual endoscopic evidence severe gastric inflammation but biopsies non diagnostic. No detected H pylori. Lungs : clear to auscultation Abdomen: soft, non tender. Large ventral incisional hernia with no incarcerated tissue. Impression: Dysphagia likely due to parkinsonism but each pathology has been consulted to assess Visual endoscopic evidence severe gastric inflammation not corroborated by biopsies - despite this, recommend continued PPI. Large stable hiatal hernia Incarcerated ventral incisional hernia on presentation to the emergency department, reduced and stable. Patient currently does not wish to consider surgical intervention. We discussed the potential for recurrent incarceration and possible strangulation. If the patient has recurrent symptoms such as those prompting her presentation to the emergency department, surgery will be recommended. The patient is aware of her increased morbidity/mortality related to surgery. This is the primary reason the patient does not wish to consider surgery at this time. Emergent circumstances will increase those risks should acute irreducible incarceration or strangulation occur. REcommendation: continue PPI advance diet to regular awaiting swallowing evaluation per Speech Pathology. Objective Vital Signs - Last 8 Hours Temp Pulse Resp BP Pulse Ox 01/07/17 10:38 98.0 F 63 16 170/68 97 01/07/17 07:19 98.4 F 54 16 175/73 97 Intake and Output 01/06/17 01/07/17 01/07/17 23:59 07:59 15:59 Intake Total 1720 / 1720 1000 / 1000 1236 / 1236 Output Total 1500 / 1500 1800 / 1800 900 / 900 Balance 220 / 220 -800 / -800 336 / 336 Intake: IV Fluids 1000 / 1000 1000 / 1000 756 / 756 0.9 % Sodium Chloride 1, 1000 / 1000 1000 / 1000 756 / 756 000 ML @ 125 mls/hr IVC . Q8H TIFFANIE Rx#:[id number] Oral 720 / 720 0 / 0 480 / 480 Output: Urine 1500 / 1500 1800 / 1800 900 / 900 Other: Meal Dinner Breakfast # Bowel Movements 0 0 Weight 61.2 kg Patient Weight 01/07/17 23:59 Weight 61.2 kg - Labs 01/07/17 08:31 01/07/17 08:31 Diabetes panel 01/07/17 Range/Units 08:31 Sodium 141 (136-145) mEq/L Potassium 3.2 L (3.5-4.5) mEq/L Chloride 109 (98-109) mEq/L Carbon Dioxide 26 (19-29) mEq/L BUN 5 L (7-20) mg/dL Creatinine 0.74 (0.57-1.11) mg/dL Glucose 85 (70-99) mg/dL Calcium 8.6 (8.6-10.8) mg/dL AST 12 (5-34) Units/L ALT < 6 (0-55) Units/L Alkaline Phosphatase 53 (38-126) Units/L Albumin 3.2 L (3.5-5.0) g/dL Calcium panel 01/07/17 Range/Units 08:31 Calcium 8.6 (8.6-10.8) mg/dL Albumin 3.2 L (3.5-5.0) g/dL Pituitary panel 01/07/17 Range/Units 08:31 Sodium 141 (136-145) mEq/L Potassium 3.2 L (3.5-4.5) mEq/L Chloride 109 (98-109) mEq/L Carbon Dioxide 26 (19-29) mEq/L BUN 5 L (7-20) mg/dL Creatinine 0.74 (0.57-1.11) mg/dL Glucose 85 (70-99) mg/dL Calcium 8.6 (8.6-10.8) mg/dL Adrenal panel 01/07/17 Range/Units 08:31 Sodium 141 (136-145) mEq/L Potassium 3.2 L (3.5-4.5) mEq/L Chloride 109 (98-109) mEq/L Carbon Dioxide 26 (19-29) mEq/L BUN 5 L (7-20) mg/dL Creatinine 0.74 (0.57-1.11) mg/dL Glucose 85 (70-99) mg/dL Calcium 8.6 (8.6-10.8) mg/dL Total Bilirubin 1.0 (0.2-1.2) mg/dL AST 12 (5-34) Units/L ALT < 6 (0-55) Units/L Alkaline Phosphatase 53 (38-126) Units/L Albumin 3.2 L (3.5-5.0) g/dL - VTE Documentation of Mechanical Device: Intermittent pneumatic compression device Consult Discharge Plan - Plan Referrals: Bj Card MD [Primary Care Provider] -
[2017-01-07] MEDS ORDERED: Water for inj. (sterile) 0 ML IV ONE (15:14)
--- NOTE | 2017-01-07 17:17 | Internal Med Progress Note ---
Date of Encounter: 01/07/17 Time of Encounter: 17:13 - Assessment and plan (1) Chest pain Current Visit: Yes Status: Acute Assessment and plan: it appears that her chest pain is midsternal area Epigastrium where she still fee. Quite atypical for cardiac chest pain. Troponins EKG and chest x-ray are unremarkable. Qualifiers: Chest pain type: other chest pain Qualified Code(s): R07.89 - Other chest pain; R07.8 - Other chest pain (2) Hypertension Current Visit: No Status: Acute Qualifiers: Hypertension type: essential hypertension Qualified Code(s): I10 - Essential (primary) hypertension (3) Hyperlipidemia Current Visit: No Status: Acute Qualifiers: Hyperlipidemia type: unspecified Qualified Code(s): E78.5 - Hyperlipidemia , unspecified (4) Ventral hernia with bowel obstruction Current Visit: Yes Status: Acute Assessment and plan: patient presented with an incarcerated ventral he which was manually reduced by Dr. Saleem and since then she has been able to pass gas. Surgery has seen the patient today and agreed to advance patient diet to regular no. - Subjective Interval history: patient Laurie Murray is a 76-year-old femalecame in withan incarcerated ventral hernia General surgeon Dr. Monteiro consulted who manually reduce the hernia. She is is hall tender in periumbilica No nausea vomiting diarrhea she is passing some gas. She is on clear. She denies any other symptoms 01/07 patient symptoms have improved. No nausea vomiting diarrhea. Abdominal pain has already improved. Patient is tolerating liquids and will be advanced to full liquids. As noted before her ventral hernia was reduced manually by surgeon Dr. bustamante CT abdomen showed an incarcerated periumbilical ventral hernia which has been taking care already as noted above. Also noted to right lower quadrant hernia which is taking care of by surgeon previously and that mashes is still intact. She has a large greg esophageal hernia noted during EGD. As patient was complaining of symptoms of dysphagia EGD was performed and please follow the reports but essentially it was quite unremarkable for any other and an anatomical abnormality. In order to rule out any functional component we did a speech evaluation and modified barium swallow which also did not show any abnormal muscle tone or muscular dysfunction and no risk of aspiration. Patient is advanced to full diet and can be discharged home. Her potassium was low which is supplemented. She can resume her all home medications including Plavix upon discharge. She was noted to have some gastritis therefore she will be placed on Protonix. - Constitutional Vitals: Temp Pulse Resp BP Pulse Ox 98.0 F 74 16 167/80 94 01/07/17 14:35 01/07/17 14:35 01/07/17 14:35 01/07/17 14:35 01/07/17 14:35 General appearance: Present: A&O X 3, pleasant, no acute distress - Head Head exam: Present: atraumatic, normocephalic - Eye Eye exam: Present: PERRL, conjuntiva pink, sclera anicteric Pupils: Present: PERRL - Neck Neck exam general surgery: Present: supple, trachea midline. Absent: lymphadenopathy - Respiratory Respiratory exam: Present: CTAB. Absent: accessory muscle use, rales, rhonchi, wheezes - Cardiovascular Cardiovascular exam: Present: RRR, +S1, +S2. Absent: diastolic murmur, gallop, rubs, systolic murmur - GI/Abdominal GI/Abdominal exam: Present: normal bowel sounds, soft, no peritoneal signs. Absent: distended, tenderness Additional comments: Mild tenderness in periumbilical area but no palpable mass or skin discoloration bowel sounds active - Extremities Exam Extremities exam: Present: warm, radial pulses palpable and symetrical. Absent : calf tenderness, cyanotic, pedal edema - Neurological Exam Neurological exam: Present: CN II-XII intact, oriented X3, no focal deficits. Absent: pronater drift, facial droop, speech deficit - Skin Skin exam: Present: dry, intact Internal Medicine: Result - Labs CBC & Chem 7: 01/07/17 08:31 01/07/17 08:31 Labs: Short CBC 01/07/17 Range/Units 08:31 WBC 9.4 (4.3-11.1) K/mcL Hgb 12.3 (11.5-15.4) g/dL Hct 37.0 (35.3-44.9) % Plt Count 211 (140-400) K/mcL Neutrophils # 5.1 (1.6-8.9) K/mcL BMP 01/07/17 08:31 Sodium 141 Potassium 3.2 L Chloride 109 Carbon Dioxide 26 BUN 5 L Creatinine 0.74 Glucose 85 Calcium 8.6 Liver Function 01/07/17 Range/Units 08:31 Total Bilirubin 1.0 (0.2-1.2) mg/dL AST 12 (5-34) Units/L ALT < 6 (0-55) Units/L Alkaline Phosphatase 53 (38-126) Units/L Albumin 3.2 L (3.5-5.0) g/dL - ABG Interpretation ABG results: PT/INR, D-dimer PT 11.5 Seconds (9.4-12.1) 01/05/17 13:28 - Impressions Impressions Videofluoroscopic Swallow 01/07/17 14:02 IMPRESSION: Swallowing mechanism grossly within normal limits without evidence of aspiration. Please see separate speech pathology report for full discussion of findings and recommendations. D/ / Jr Michel MD / Jr Michel MD Interpreting Provider: Jr Michel MD - VTE Documentation of Mechanical Device: Intermittent pneumatic compression device Consult Discharge Plan - Plan Referrals: Bj Card MD [Primary Care Provider] -
--- NOTE | 2017-01-07 17:24 | Discharge Summary ---
Date of Encounter: 01/08/17 Time of Encounter: 14:07 - Discharge Diagnosis (1) Chest pain Priority: Secondary Status: Acute Qualifiers: Chest pain type: other chest pain Qualified Code(s): R07.89 - Other chest pain; R07.8 - Other chest pain (2) Hypertension Priority: Secondary Status: Acute Qualifiers: Hypertension type: essential hypertension Qualified Code(s): I10 - Essential (primary) hypertension (3) Hyperlipidemia Priority: Secondary Status: Acute Qualifiers: Hyperlipidemia type: unspecified Qualified Code(s): E78.5 - Hyperlipidemia , unspecified (4) Ventral hernia with bowel obstruction Priority: Primary Status: Acute - Discharge Medications Prescriptions: Omeprazole [PriLOSEC] 20 mg PO DAILY@0630 #30 capsule. Home Medications: ALPRAZolam [Xanax 0.5 MG Tablet] 0.5 mg PO BID PRN 03/09/16 [History] Carbidopa/Levodopa [Carbidopa-Levodopa 25-100 Tab] 1 tab PO TID 03/09/16 [ History] HYDROcodone/Acet 5/325 mg [[place] 5-325 mg] 1 tab PO BID PRN 03/09/16 [History] Albuterol Sulfate [Albuterol Inhaler] 2 puff IH Q4HR PRN 01/05/17 [History] Clopidogrel [Plavix] 75 mg PO DAILY 01/05/17 [History] DULoxetine [Cymbalta] 30 mg PO DAILY 01/05/17 [History] Metoprolol [Lopressor] 12.5 mg PO BID 01/05/17 [History] Omeprazole [PriLOSEC] 20 mg PO DAILY@0630 #30 capsule. 01/07/17 [Rx] Allergies/Adverse Reactions: Allergies No Known Allergies Allergy (Verified 03/09/16 15:13) Procedures/tests Complete & Pending: Procedures Performed prior 72 hours Category Date Time Status ECG 12 lead ECG [ECG] Routine Y 01/06/17 07:44 Completed EKG [ECG 12 lead ECG] [ECG] Routine Y 01/05/17 18:10 Ordered Date of admission: 01/05/17 18:03 Primary care physician: Bj Card MD Consults: 01/07/17 12:17 Consult to Speech Therapy [CONS] Stat Comment: Evaluate, develop and implement POC Reason for Consult: swallow evaluation at bedside due to throat pain and patient states feels constricted. Time Notified: 12:20 Call Completed: No Discharging clinician: Alida Falcon Anticipated date of discharge: 01/08/17 - Patient Status Disposition: Home, Self-Care Overall status at discharge: patient is back to baseline - Discharge Instructions Follow Up With: Bj Card MD [Primary Care Provider] - - Diet and Activity Activity: increase activity as tolerated Diet: advance to your usual diet (Vision is advised to follow with his family doctor next week and return to ER if symptoms develop or worsen) Interval History: Ms. uQinn is a 76-year-old female transferred from [facility] for an incarcerated ventral hernia. General surgeon Dr. bustamante who knows the patient, was consulted. He was able to introduce hernia in ER and patient was admitted for observation. CT abdomen showed an incarcerated periumbilical ventral hernia which has been taking care already as noted above. Also noted to right lower quadrant hernia which was taken care of by surgeon previously and that mashes is still intact. She has a large greg esophageal hernia noted during EGD. As patient was complaining of symptoms of dysphagia EGD was performed and please follow the reports but essentially it was quite unremarkable for any other and an anatomical abnormality. In order to rule out any functional component we did a speech evaluation and modified barium swallow which also did not show any abnormal muscle tone or muscular dysfunction and no risk of aspiration. Patient is advanced to full diet and can be discharged home. Her potassium was low which is supplemented. She can resume her all home medications including Plavix upon discharge. She was noted to have some gastritis therefore she will be placed on Protonix. Hospital course: Ms. Gallo is a 76 year old female - Time Spent with Patient Total time spent providing and/or coordinating discharge services: Greater than 30 minutes - Constitutional Vitals: Temp Pulse Resp BP Pulse Ox 98.0 F 74 16 167/80 94 01/07/17 14:35 01/07/17 14:35 01/07/17 14:35 01/07/17 14:35 01/07/17 14:35 General appearance: Present: A&O X 3, pleasant, no acute distress - Head Head exam: Present: atraumatic, normocephalic - Eye Eye exam: Present: PERRL, conjuntiva pink, sclera anicteric Pupils: Present: PERRL - Neck Neck exam general surgery: Present: supple, trachea midline. Absent: lymphadenopathy - Respiratory Respiratory exam: Present: CTAB. Absent: accessory muscle use, rales, rhonchi, wheezes - Cardiovascular Cardiovascular exam: Present: RRR, +S1, +S2. Absent: diastolic murmur, gallop, rubs, systolic murmur - GI/Abdominal GI/Abdominal exam: Present: normal bowel sounds, soft, no peritoneal signs. Absent: distended, tenderness - Extremities Exam Extremities exam: Present: warm, radial pulses palpable and symetrical. Absent : calf tenderness, cyanotic, pedal edema - Neurological Exam Neurological exam: Present: CN II-XII intact, oriented X3, no focal deficits. Absent: pronater drift, facial droop, speech deficit - Skin Skin exam: Present: dry, intact - VTE Documentation of Mechanical Device: Intermittent pneumatic compression device
[2017-01-07] MEDS ORDERED: Water for inj. (sterile) 10 ML IV ONE (18:36)
[2017-01-07] MEDS: *HR* LORazepam 2 MG/ML VIAL IVP PRN (18:38)
[2017-01-08] MEDS: *HR* LORazepam 2 MG/ML VIAL IVP PRN (05:07)
[2017-01-08 06:29] LABS: Basophils # 0.1 K/mcL (0.0-0.2); Basophils % 0.6 %; Eosinophils # 0.2 K/mcL (0.0-0.6); Eosinophils % 1.9 %; Hematocrit 32.3 % (35.3-44.9); Hemoglobin 11.2 g/dL (11.5-15.4); Immature Granulocytes % 0.4 % (0-4); Lymphocytes # 2.5 K/mcL (0.6-4.6); Lymphocytes % 29.6 %; Mean Corpuscular HGB Conc 34.7 g/dL (31.6-35.5); Mean Corpuscular Hemoglobin 30.5 pg (28.0-33.3); Mean Platelet Volume 9.9 fL (9.4-12.4); Monocytes # 0.7 K/mcL (0.0-1.3); Monocytes % 7.9 %; Platelet Count 181 K/mcL (140-400); Red Blood Count 3.67 M/mcL (3.82-4.97); Red Cell Distribution Width 12.6 % (11.5-14.5); Segmented Neutrophils % 59.6 %
[2017-01-08 06:46] LABS: Albumin/Globulin Ratio 1.1 (1.1-2.2); Aspartate Amino Transferase 11 Units/L (5-34); BUN/Creatinine Ratio 7 (6-26); Bilirubin,Total 0.7 mg/dL (0.2-1.2); Calcium 8.6 mg/dL (8.6-10.8); Carbon Dioxide 26 mEq/L (19-29); Chloride 105 mEq/L (98-109); Globulin 2.7 g/dL (2.4-3.5); Glucose 103 mg/dL (70-99); Osmolality,Calculated 282 (280-300); Potassium 3.4 mEq/L (3.5-4.5); Sodium 137 mEq/L (136-145); Total Protein 5.7 g/dL (6.0-8.3); eGFR For African Americans > 60 (> 60); eGFR For Non-African Americans > 60 (> 60)
[2017-01-08 06:47] LABS: Alanine Aminotransferase < 6 Units/L (0-55); Blood Urea Nitrogen 5 mg/dL (7-20)
[2017-01-08 08:09] LABS: Alkaline Phosphatase 49 Units/L (38-126)
[2017-01-08] MEDS: Carbidopa/Levodopa 25/100 TABLET PO SCH ×2 (08:39→14:15)
[2017-01-08 10:49] VITALS: BP 135/68
[2017-01-08] MEDS ORDERED: Sennosides 8.6 MG TABLET PO ONE (14:15)
--- NOTE | 2017-01-08 15:53 | Physician Discharge Referral ---
Home Health/Hosp Referral Info Transfer to: Home Health Attending Provider: vince Provider in Charge Post Discharge: PCP (Patient is homebound needs support for ambulation and hospital physical therapy evaluated her and recommended outpatient physical therapy for her) - Diagnosis (1) Chest pain Status: Acute (2) Hypertension Status: Acute (3) Hyperlipidemia Status: Acute (4) Ventral hernia with bowel obstruction Status: Acute - Respiratory Orders Smoking Cessation: Smoking cessation has been advised. For more information, call the [employer] Tobacco Quit Line at 0-336-IBTN-NOW. - Transfer Medications Prescriptions: Omeprazole [PriLOSEC] 20 mg PO DAILY@0630 #30 capsule. Home Medications: ALPRAZolam [Xanax 0.5 MG Tablet] 0.5 mg PO BID PRN 03/09/16 [History] Carbidopa/Levodopa [Carbidopa-Levodopa 25-100 Tab] 1 tab PO TID 03/09/16 [ History] HYDROcodone/Acet 5/325 mg [[place] 5-325 mg] 1 tab PO BID PRN 03/09/16 [History] Albuterol Sulfate [Albuterol Inhaler] 2 puff IH Q4HR PRN 01/05/17 [History] Clopidogrel [Plavix] 75 mg PO DAILY 01/05/17 [History] DULoxetine [Cymbalta] 30 mg PO DAILY 01/05/17 [History] Metoprolol [Lopressor] 12.5 mg PO BID 01/05/17 [History] Omeprazole [PriLOSEC] 20 mg PO DAILY@0630 #30 capsule. 01/07/17 [Rx] Allergies/Adverse Reactions: Allergies No Known Allergies Allergy (Verified 03/09/16 15:13) Certification: Further, I certify that my clinical findings support that this patient is homebound (i.e. absences from home require considerable and taxing effort and are for medical reasons or jewish services or infrequently or short duration when for other reasons) because: Homebound Reason: Patient requires assistance of a person or device to safely leave home Attestation: My signature below is to certify that this patient is under my care and that I, or nurse practitioner, or a physician's assistant dean working with me, has a face-to -face encounter with this patient.
== END 2017-01-08 15:42 | disposition home health service (06) | DRG 395 ==
LOC: EMEROO 12:52 → 3ANU 12:52
PROVIDERS: ADMIT Nurse Practitioner Family; ATTEND Internal Medicine
PROC: ENDOEBX (2017-01-06 11:00)

== ENCOUNTER 2017-02-13 04:15 | Inpatient (IN) ==
[2017-02-13] MEDS ORDERED: *HR* Morphine 2 MG/ML SYRINGE IVP ONE ×2 (05:14→06:10)
--- NOTE | 2017-02-13 05:19 | Emergency Department Note ---
Disposition Clinical Impression: Fall Qualifiers: Encounter type: initial encounter Qualified Code(s): W19.XXXA - Unspecified fall, initial encounter Disposition: Still a Patient Referrals: Bj Card MD [Primary Care Provider] - Forms: ED Satisfaction Letter Fall HPI - General Chief Complaint: ED Fall Stated Complaint: fall Time Seen by Provider: 02/13/17 04:59 Source: patient, EMS Nursing Notes Reviewed: Yes Vital Signs Reviewed: Yes - History of Present Illness HPI Narrative: 76-year-old female presents the ED complaining of back and left hip pain from a fall today. Patient states she was getting up to go get a glass of water from the kitchen when she slipped and fell onto her left side. She states that she did hit her head but did not lose consciousness. She states that she fell on her left hip and her back as well. She is complaining of left hip and back pain from between the shoulder blades already down to her sacrum. She states the pain is 8 out of 10 and radiating from thoracic spine down to her left hip. The left hip pain radiates down the left leg. She states the pain as being sharp and stabbing. She has not taken anything for the pain yet. She does not know any nausea or vomiting. She states no abdominal pain. She states no saddle anesthesia. She states no loss of bowels or bladder. She states no loss of sensation in any of her limbs. Family states that she is still alert and oriented and has been acting her normal self since the fall. After she fell she was able to get up on her own and walk to get her son who is able to help her get to the ED. - Related Data Home Medications Medication Instructions Recorded Confirmed ALPRAZolam [Xanax 0.5 MG Tablet] 0.5 mg PO BID PRN 03/09/16 01/05/17 Carbidopa/Levodopa 1 tab PO TID 03/09/16 01/05/17 [Carbidopa-Levodopa 25-100 Tab] HYDROcodone/Acet 5/325 mg [[place] 1 tab PO BID PRN 03/09/16 01/05/17 5-325 mg] Albuterol Sulfate [Albuterol 2 puff IH Q4HR PRN 01/05/17 01/05/17 Inhaler] Clopidogrel [Plavix] 75 mg PO DAILY 01/05/17 01/05/17 DULoxetine [Cymbalta] 30 mg PO DAILY 01/05/17 01/05/17 Metoprolol [Lopressor] 12.5 mg PO BID 01/05/17 01/05/17 Previous Rx's Medication Instructions Recorded Omeprazole [PriLOSEC] 20 mg PO DAILY@0630 #30 capsule. 01/07/17 Allergies Allergy/AdvReac Type Severity Reaction Status Date / Time No Known Allergies Allergy Verified 03/09/16 15:13 Constitutional: Denies: fever, chills, weakness, weight change Eyes: Denies: eye pain, eye discharge, vision change ENT ED: Denies: ear pain, throat pain, dental pain, hearing loss, epistaxis, congestion, dysphagia Cardiovascular: Denies: chest pain, palpitations, dyspnea on exertion, edema, syncope Respiratory: Denies: cough, dyspnea, wheezes, hemoptysis, stridor Gastrointestinal: Denies: abdominal pain, nausea, vomiting, diarrhea, constipation, hematemesis, melena, hematochezia Genitourinary: Denies: dysuria, frequency, hematuria, discharge Musculoskeletal: Reports: back pain. Denies: neck pain, arthralgia, myalgia Integumentary: Denies: rash, abrasion, lesions Neurological: Denies: headache, weakness, numbness, paresthesias, confusion, abnormal gait, vertigo Endocrine: Denies: fatigue Hematological/Lymphatic: Denies: easy bleeding, easy bruising Fall PMH - Past Medical History Medical history: Reports: coronary artery disease, hyperlipidemia, hypertension , myocardial infarction, other Surgical history: Reports: angioplasty/stent, herniorrhaphy, other (AAA repair) Psychiatric history: Reports: anxiety, depression - Social History Smoking Status: Never smoker Alcohol use: Reports: none Drug use: Reports: none Physical Exam - General Limitations: no limitations General appearance: alert, anxious, in distress (Upon examining she is laying on her stomach clenching a pillow stain her entire back and left hip hurt.) - Head Head exam: atraumatic, normocephalic, normal inspection - Eye Eye exam: Present: normal appearance, PERRL, EOMI - ENT ENT exam: normal exam, normal oropharynx, mucous membranes moist - Neck Neck exam: Present: normal inspection, full ROM, trachea midline. Absent: tenderness - Chest Chest inspection: Present: normal inspection, symmetric chest wall rise - Respiratory Respiratory exam: Present: normal lung sounds bilaterally - Cardiovascular Cardiovascular exam: Present: regular rate, normal rhythm, normal heart sounds - Abdominal Exam Abdominal exam: Present: soft, Non-Tender. Absent: tenderness, distention, guarding, rebound, rigidity - Expanded Lower Extremity Exam Hip/Pelvis exam: Present: tenderness (On left hip compression at ASIS and PSIS) , pelvis stable. Absent: deformity, external rotation, internal rotation, shortening - Back Exam Back exam: Present: normal inspection (No signs of bruising or ecchymosis.), tenderness (Down the entire spine from C7 to the sacrum), vertebral tenderness - Neurological Exam Neurological exam: Present: alert, oriented X3 - Skin Skin exam: Present: warm, dry, intact, normal color Course Course Narrative: 76-year-old female presents to the ED from a fall complaining of back and left hip pain. Patient is in a lot of pain while she was here as we will give her 2 mg IV morphine. Due to her age and fall we will get a CT of the head. She is tender throughout the entire vertebral in the left hip we will get CT scans from cervical spine through lumbar including the left hip as well. Patient is okay with this plan. Because his mechanical fall there is no need for labs this time. - Reevaluation(s) Reevaluation #1: Reevaluated patient after she returned from CT. She states that she is still in a lot of pain. We will give her 4 mg of morphine IV and also 4 mg of Zofran for nausea prevention. He awaiting CT results at this time. Time: 06:15 Vital Signs Temperature 98.4 F 02/13/17 04:16 Pulse Rate 111 02/13/17 04:16 Respiratory Rate 16 02/13/17 04:16 Blood Pressure 148/87 02/13/17 04:16 O2 Sat by Pulse Oximetry 97 02/13/17 04:16 Temperature 98.4 F 02/13/17 04:16 Pulse Rate 105 02/13/17 06:27 Respiratory Rate 18 02/13/17 06:27 Blood Pressure 174/80 02/13/17 06:27 O2 Sat by Pulse Oximetry 100 02/13/17 06:27 Oxygen Delivery Oxygen Delivery Nasal Cannula Fall - [facility] Narrative Medical decision making narrative: 76 year old female presents to the ED complaining of back pain and left hip pain from a fall. This was a mechanical fall on the kitchen floor tonight. She states she did hit her head and did not lose consciousness we will also get a CT due to her age. We will also CT her entire spine including her left hip. Based on exam she was tender from C7 down her entire lumbar spine. There were no signs of ecchymosis or bruising. Will also get a CT of her left hip as she was very tender to compression of the hip and palpation of the left ASIS. There was pedal blood flow to both sides. She notes no saddle anesthesia, loss of bowel and bladder. This is low likelihood for cauda equina syndrome. Family states that she is still acting her normal self and had no nausea or vomiting this is low likelihood that there is a head bleed but still get the CT of the head. Due to this being a mechanical fall will not get labs at this time. For pain we will give her 2 mg of morphine IV. 0616-patient reevaluated and states that she is still in a lot of pain. We will give her 4 mg morphine and 4 mg Zofran for nausea prophylaxis. Patient is still laying in bed writhing in pain on her right side now. Still awaiting official reads from CT scans. 0653- signed out patient to Dr. Hurley. I am says that her pain is well controlled. Still waiting for official reads on all CTs. Attestation Statement - Attestation Attestation: I, Maxx Kidd MD, personally evaluated this patient and discussed their management with the resident physician. I reviewed the resident's note and agree with the documented findings, medical decision making, and plan of care. 76-year-old female presents to the emergency department by her lips after she had a mechanical fall at home. Patient states that she went to the kitchen and opened the refrigerator and she just slipped and fell. She denies loss of consciousness. She complains of pain in her entire back but primarily in the lower back. She also complains of left hip pain. On examination patient is a well-developed well-nourished elderly female in no acute distress but appears to be in moderate discomfort. She is alert and oriented. There is no cyanosis or diaphoresis. Chest is nontender to palpation. Breath sounds are clear and equal bilaterally. Heart regular rate and rhythm. Abdomen is soft and nontender with normal bowel sounds. There is diffuse lower back tenderness. Tenderness to palpation over the left side of the pelvis and hip area with limited range of motion. At shift change patient is awaiting imaging results. [facility], Dr. Tan and Dr. Hurley.
[2017-02-13] MEDS ORDERED: Ondansetron 4 MG/2 ML VIAL IVP ONE ×2 (06:10→10:23)
--- NOTE | 2017-02-13 07:04 | Emergency Department Note ---
Disposition Clinical Impression: Fall Qualifiers: Encounter type: initial encounter Qualified Code(s): W19.XXXA - Unspecified fall, initial encounter Disposition: Still a Patient Referrals: Bj Card MD [Primary Care Provider] - Forms: ED Satisfaction Letter General Adult HPI - General Chief complaint: ED Fall Stated complaint: fall Time Seen by Provider: 02/13/17 04:59 Source: patient, EMS Limitations: no limitations - History of Present Illness Pain Scale: 10 - Related Data Home Medications Medication Instructions Recorded Confirmed ALPRAZolam [Xanax 0.5 MG Tablet] 0.5 mg PO BID PRN 03/09/16 01/05/17 Carbidopa/Levodopa 1 tab PO TID 03/09/16 01/05/17 [Carbidopa-Levodopa 25-100 Tab] HYDROcodone/Acet 5/325 mg [[place] 1 tab PO BID PRN 03/09/16 01/05/17 5-325 mg] Albuterol Sulfate [Albuterol 2 puff IH Q4HR PRN 01/05/17 01/05/17 Inhaler] Clopidogrel [Plavix] 75 mg PO DAILY 01/05/17 01/05/17 DULoxetine [Cymbalta] 30 mg PO DAILY 01/05/17 01/05/17 Metoprolol [Lopressor] 12.5 mg PO BID 01/05/17 01/05/17 Previous Rx's Medication Instructions Recorded Omeprazole [PriLOSEC] 20 mg PO DAILY@0630 #30 capsule. 01/07/17 Allergies Allergy/AdvReac Type Severity Reaction Status Date / Time No Known Allergies Allergy Verified 03/09/16 15:13 Constitutional: Denies: fever, chills, weakness, weight change Eyes: Denies: eye pain, eye discharge, vision change ENT ED: Denies: ear pain, throat pain, dental pain, hearing loss, epistaxis, congestion, dysphagia Cardiovascular: Denies: chest pain, palpitations, dyspnea on exertion, edema, syncope Respiratory: Denies: cough, dyspnea, wheezes, hemoptysis, stridor Gastrointestinal: Denies: abdominal pain, nausea, vomiting, diarrhea, constipation, hematemesis, melena, hematochezia Genitourinary: Denies: dysuria, frequency, hematuria, discharge Musculoskeletal: Reports: back pain. Denies: neck pain, arthralgia, myalgia Integumentary: Denies: rash, abrasion, lesions Neurological: Denies: headache, weakness, numbness, paresthesias, confusion, abnormal gait, vertigo Endocrine: Denies: fatigue Hematological/Lymphatic: Denies: easy bleeding, easy bruising Past Medical History - Past Medical History Medical history: Reports: coronary artery disease, hyperlipidemia, hypertension , myocardial infarction, other Surgical history: Reports: angioplasty/stent, herniorrhaphy, other (AAA repair) Psychiatric history: Reports: anxiety, depression - Social History Smoking Status: Never smoker Smokeless Tobacco Status: No Alcohol use: Reports: none Drug use: Reports: none Physical Exam - General Limitations: no limitations General appearance: alert, anxious, in distress (Upon examining she is laying on her stomach clenching a pillow stain her entire back and left hip hurt.) Course Vital Signs Temperature 98.4 F 02/13/17 04:16 Pulse Rate 111 02/13/17 04:16 Respiratory Rate 16 02/13/17 04:16 Blood Pressure 148/87 02/13/17 04:16 O2 Sat by Pulse Oximetry 97 02/13/17 04:16 Temperature 98.4 F 02/13/17 04:16 Pulse Rate 105 02/13/17 06:27 Respiratory Rate 18 02/13/17 06:27 Blood Pressure 174/80 02/13/17 06:27 O2 Sat by Pulse Oximetry 100 02/13/17 06:27 Oxygen Delivery Oxygen Delivery Nasal Cannula Attestation Statement - Attestation Attestation: I examined this patient and my medical decision-making was reviewed with the Resident Physician. I agree with the documented findings, disposition and treatment plan as described except to the extent set forth below. Face to face time provided Care assumed from Dr. Kidd at 7am. Patient sustained a fall. Imaging studies ordered by the previous team. She appears in no acute distress on exam
--- NOTE | 2017-02-13 07:08 | Emergency Department Note ---
Disposition Clinical Impression: Fall Qualifiers: Encounter type: initial encounter Qualified Code(s): W19.XXXA - Unspecified fall, initial encounter Closed left femoral fracture Qualifiers: Encounter type: initial encounter Femur location: neck Qualified Code(s): S72.002A - Fracture of unspecified part of neck of left femur, initial encounter for closed fracture Disposition: Admitted As Inpatient Condition: Undetermined Referrals: Bj Card MD [Primary Care Provider] - Forms: ED Satisfaction Letter Time of Disposition: 08:49 Fall HPI - General Chief Complaint: ED Fall Stated Complaint: fall Time Seen by Provider: 02/13/17 04:59 Source: patient, EMS Mode of arrival: EMS Limitations: no limitations Nursing Notes Reviewed: Yes Vital Signs Reviewed: Yes - History of Present Illness HPI Narrative: 76-year-old female signed out by night team after mechanical fall just prior to arrival. No prolonged downtime noted per day 18 and a son in the room. Patient sustained a mechanical fall where she struck her head on the ground without LOC. Imaging currently pending at this time. Patient admits to left hip pain. Patient denies any further complaints at this time. Patient has bilateral hips flexed at this time due to pain. 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 Fall From: standing Fall Witnessed: no Place Fall Occurred: home Loss of Consciousness: none Prolonged Down Time?: no Symptoms Prior to Fall: none Context: tripped/slipped Location of injury - extremities: Left: hip Severity: moderate Severity scale (1-10): 4 Quality: aching Associated symptoms (after fall): Reports: denies - Related Data Home Medications Medication Instructions Recorded Confirmed ALPRAZolam [Xanax 0.5 MG Tablet] 0.5 mg PO BID PRN 03/09/16 01/05/17 Carbidopa/Levodopa 1 tab PO TID 03/09/16 01/05/17 [Carbidopa-Levodopa 25-100 Tab] HYDROcodone/Acet 5/325 mg [[place] 1 tab PO BID PRN 03/09/16 01/05/17 5-325 mg] Albuterol Sulfate [Albuterol 2 puff IH Q4HR PRN 01/05/17 01/05/17 Inhaler] Clopidogrel [Plavix] 75 mg PO DAILY 01/05/17 01/05/17 DULoxetine [Cymbalta] 30 mg PO DAILY 01/05/17 01/05/17 Metoprolol [Lopressor] 12.5 mg PO BID 01/05/17 01/05/17 Previous Rx's Medication Instructions Recorded Omeprazole [PriLOSEC] 20 mg PO DAILY@0630 #30 capsule. 01/07/17 Allergies Allergy/AdvReac Type Severity Reaction Status Date / Time No Known Allergies Allergy Verified 03/09/16 15:13 All systems ED: reviewed and negative except as stated. Constitutional: Denies: fever, chills, weakness, weight change Eyes: Denies: eye pain, eye discharge, vision change ENT ED: Denies: ear pain, throat pain, dental pain, hearing loss, epistaxis, congestion, dysphagia Cardiovascular: Denies: chest pain, palpitations, dyspnea on exertion, edema, syncope Respiratory: Denies: cough, dyspnea, wheezes, hemoptysis, stridor Gastrointestinal: Denies: abdominal pain, nausea, vomiting, diarrhea, constipation, hematemesis, melena, hematochezia Genitourinary: Denies: dysuria, frequency, hematuria, discharge Musculoskeletal: Reports: back pain. Denies: neck pain, arthralgia, myalgia Integumentary: Denies: rash, abrasion, lesions Neurological: Denies: headache, weakness, numbness, paresthesias, confusion, abnormal gait, vertigo Endocrine: Denies: fatigue Hematological/Lymphatic: Denies: easy bleeding, easy bruising Fall PMH - Past Medical History Medical history: Reports: coronary artery disease, hyperlipidemia, hypertension , myocardial infarction, other Surgical history: Reports: angioplasty/stent, herniorrhaphy, other (AAA repair) Psychiatric history: Reports: anxiety, depression - Social History Smoking Status: Never smoker Alcohol use: Reports: none Drug use: Reports: none Physical Exam - General Limitations: no limitations General appearance: alert, anxious, in distress (Upon examining she is laying on her stomach clenching a pillow stain her entire back and left hip hurt.) - Head Head exam: atraumatic, normocephalic, normal inspection - ENT ENT exam: normal exam - Neck Neck exam: Present: normal inspection, full ROM, trachea midline - Chest Chest inspection: Present: normal inspection, symmetric chest wall rise - Respiratory Respiratory exam: Present: normal lung sounds bilaterally - Cardiovascular Cardiovascular exam: Present: regular rate, normal rhythm, normal heart sounds - Extremities Exam Extremities exam: Present: normal inspection, tenderness (Left hip) - Neurological Exam Neurological exam: Present: alert, oriented X3 Course Vital Signs Temperature 98.4 F 02/13/17 04:16 Pulse Rate 111 02/13/17 04:16 Respiratory Rate 16 02/13/17 04:16 Blood Pressure 148/87 02/13/17 04:16 O2 Sat by Pulse Oximetry 97 02/13/17 04:16 Temperature 98.4 F 02/13/17 04:16 Pulse Rate 101 02/13/17 08:31 Respiratory Rate 18 02/13/17 08:31 Blood Pressure 151/63 02/13/17 08:31 O2 Sat by Pulse Oximetry 96 02/13/17 08:31 Oxygen Delivery Oxygen Delivery Nasal Cannula Fall - MDM Narrative Medical decision making narrative: After speaking with Dr. Holley in orthopedic surgery, he recommended admission to the hospital service for further care. Patient agrees to this plan. We will administer continued analgesia and admits the patient to the hospitalist service. Accepted by Dr. Moore. - EKG Data EKG attestation: Yes I reviewed and interpreted this EKG. EKG results narrative: Heart rate 98 bpm. GA interval 144 ms. QTc 381 ms. Normal axis. Normal sinus rhythm. No ST elevation or ST depression noted. EKG similar appearance to EKG from 01/30/2017. No acute changes noted.
[2017-02-13] MEDS ORDERED: *HR* FentaNYL (PF) 100 MCG/2 ML VIAL IVP ONE (07:51)
[2017-02-13 08:47] LABS: Basophils # 0.1 K/mcL (0.0-0.2); Basophils % 0.3 %; Eosinophils % 0.3 %; Hematocrit 37.2 % (35.3-44.9); Hemoglobin 12.5 g/dL (11.5-15.4); Immature Granulocytes % 0.6 % (0-4); Lymphocytes # 1.3 K/mcL (0.6-4.6); Lymphocytes % 9.3 %; Mean Corpuscular HGB Conc 33.6 g/dL (31.6-35.5); Mean Corpuscular Hemoglobin 29.8 pg (28.0-33.3); Mean Corpuscular Volume 88.8 fL (83.0-100.0); Monocytes # 0.8 K/mcL (0.0-1.3); Monocytes % 5.4 %; Platelet Count 202 K/mcL (140-400); Red Blood Count 4.19 M/mcL (3.82-4.97); Red Cell Distribution Width 12.8 % (11.5-14.5); Segmented Neutrophils % 84.1 %
[2017-02-13 08:53] LABS: INR 1.1; Prothrombin Time 11.7 Seconds (9.4-12.1)
[2017-02-13 08:55] LABS: Activated Partial Thrombo Time 25.8 Seconds (26.0-36.0)
[2017-02-13 09:00] LABS: BUN/Creatinine Ratio 13 (6-26); Blood Urea Nitrogen 10 mg/dL (7-20); Calcium 9.3 mg/dL (8.6-10.8); Carbon Dioxide 26 mEq/L (19-29); Chloride 107 mEq/L (98-109); Glucose 122 mg/dL (70-99); Osmolality,Calculated 288 (280-300); Potassium 3.8 mEq/L (3.5-4.5); Sodium 139 mEq/L (136-145); eGFR For African Americans > 60 (> 60); eGFR For Non-African Americans > 60 (> 60)
[2017-02-13] MEDS ORDERED: Acetaminophen 325 MG TABLET PO PRN (10:32)
[2017-02-13] MEDS ORDERED: *HR* Morphine 2 MG/ML SYRINGE IVP PRN (10:32)
[2017-02-13] MEDS ORDERED: Naloxone 0.4 MG/ML INJ IVP PRN (10:32)
[2017-02-13] MEDS ORDERED: Ondansetron 4 MG/2 ML VIAL IVP PRN (10:32)
--- NOTE | 2017-02-13 10:57 | Internal Med History&Physical ---
<Reji Melendez - Last Filed: 02/13/17 13:16> Date of Encounter: 02/13/17 Time of Encounter: 10:00 Assessment and Plan (1) Closed left femoral fracture Current visit: Yes Status: Acute Patient presents with impacted subcapital fracture of the left femoral neck based on CT scan of the left hip today without contrast. Consult for orthopedics placed in ED. Consult for cardiology ordered and discussed with Dr. Colbert for surgical clearance given patient's cardiac history. Stair-step pain medication protocol ordered PRN. Patient placed as falls precautions/up with assist/ and bed rest. Qualifiers: Encounter type: initial encounter Femur location: neck Qualified Code(s) : S72.002A - Fracture of unspecified part of neck of left femur, initial encounter for closed fracture (2) Fall Current visit: Yes Status: Acute Patient reports suffering fall this morning at approximately 2 a.m. She denies chest pain, dizziness, or LOC but does report she struck her head on kitchen cabinets as she was falling. Denies blacking out from striking head. Patient denies history of repeated falls and uses walker to ambulate at home. CT of the head/brain today without contrast shows no fracture or acute hemmorhage. CT does show small vessel chronic ischemic changes and small foci of acute ischemia cannot be excluded. Patient placed as falls precautions/up with assist/ bed rest status. Qualifiers: Encounter type: initial encounter Qualified Code(s): W19.XXXA - Unspecified fall, initial encounter (3) Nausea Current visit: Yes Status: Acute Patient presents with acute nausea related to her fall and increased anxiety. IV Zofran ordered and administered. Will continue patient's Xanax for anxiety. (4) Hyperlipidemia Current visit: Yes Status: Chronic Patient reports history of hyperlipidemia but is currently not taking any statin medications. Lipid panel ordered. Qualifiers: Hyperlipidemia type: pure hypercholesterolemia Qualified Code(s): E78.00 - Pure hypercholesterolemia, unspecified; E78.0 - Pure hypercholesterolemia (5) Hypertension Current visit: Yes Status: Chronic Patient presents with history of hypertension. Will continue patient's Lopressor and monitor patient and vital signs. Qualifiers: Hypertension type: essential hypertension Qualified Code(s): I10 - Essential (primary) hypertension (6) Parkinson disease Current visit: Yes Status: Chronic Patient presents with history of Parkinson's disease. Will continue patient's carbidopa/levodopa post-surgery. (7) DVT prophylaxis Current visit: No Status: Acute Patient to be placed on DVT prophylaxis due to admission protocol and current bed rest status. Anti-embolic stockings ordered for patient's bilateral LEs. Internal Medicine - H&P: HPI Chief complaint: Fall with injury/fracture Admitted From: Emergency Dept Plans for Post Hospital Care: Home History of present illness: Mrs. Gallo is a 76 year old female who presents from the ED with chief complaint of an injury related to a fall she suffered at approximately 2 a.m. this morning. Patient states that she was attempting to get a Pepsi from the refrigerator while using her walker when the door caused her to lose her balance and fall. She states she hit her head while she was falling on the cabinet doors under the sink but did not lose consciousness prior to or afterwards. Patient reports nausea since the fall but denies vomiting, chest pain, vision changes, headache, shortness of breath, diarrhea, constipation, numbness, tingling, or unusual bleeding. Patient also reports generalized weakness. Mrs. Gallo has a medical history of CAD, HLD, HTN, and IL (she reports this was many years ago). She denies history of stroke, DVT, or PE. Patient also denies a history of repeated falls and states that she is usually able to ambulate with her walker. Consults for orthopedic and cardiology have been placed for surgical intervention and surgery clearance. Patient is at moderate risk for morbidity based on current admission and risk factors regarding age and health history and will be placed as inpatient status. Patient to have bilateral anti-embolic stockings at the present time due to fear of needles. Patient placed on continuous cardiac telemetry and supplemental O2. Consults for PT, OT, and Office Services Coordinator placed for post- discharge planning and rehabilitation. Patient will be NPO in preparation for surgical intervention. Patient to be monitored closely. Time spent with patient > 40 minutes. Past Med Surg Social Fam HX - Past Medical History Source: patient Medical history: coronary artery disease, hyperlipidemia, hypertension, myocardial infarction, other Psychiatric history: anxiety, depression - Past Surgical History Surgical History: angioplasty/stent, herniorrhaphy, other - Social History Smoking Status: Never smoker Smokeless Tobacco Status: No Alcohol use: none Drug use: none Occupational status: previously employed Current living situation: Home, With Family Activity Level: Uses cane/walker Recent Out of Country Travel Within the Last 8 Weeks: No Exposure or Possible Exposure to Illness During Travel: No - Family History Mother Race: Family Member Ethnicity: Non- Living Status: Age at : 70 Cause of : Emphysema Hx Family Respiratory Disorders: Yes (Emphysema) Father Race: Family Member Ethnicity: Non- Living Status: Age at : 70 Hx Family Cardiac Disorders: Yes (HD) Hx Family Neurologic Disorders: Yes (Dementia) Internal Medicine - H&P: Meds ALPRAZolam [Xanax 0.5 MG Tablet] 0.5 mg PO BID PRN 03/09/16 [History] Carbidopa/Levodopa [Carbidopa-Levodopa 25-100 Tab] 1 tab PO TID 03/09/16 [ History] HYDROcodone/Acet 5/325 mg [[place] 5-325 mg] 1 tab PO BID PRN 03/09/16 [History] Albuterol Sulfate [Albuterol Inhaler] 2 puff IH Q4HR PRN 01/05/17 [History] Clopidogrel [Plavix] 75 mg PO DAILY 01/05/17 [History] DULoxetine [Cymbalta] 30 mg PO DAILY 01/05/17 [History] Metoprolol [Lopressor] 12.5 mg PO BID 01/05/17 [History] Pantoprazole Sodium [Protonix] 40 mg PO DAILY 02/13/17 [History] amLODIPine [Norvasc] 5 mg PO DAILY 02/13/17 [History] Allergies No Known Allergies Allergy (Verified 03/09/16 15:13) All Systems PM: A 10-system review of systems was performed and is negative for pertinent findings except as documented above in the HPI. - Constitutional Constitutional: as per HPI, falls, weakness, no chills, no fever(s), no night sweats - EENT Eyes: no change in vision, no discharge, no pain, no photophobia Ears: no ear discharge, no ear pain, no tinnitus Nose, mouth and throat: no dysphagia, no nasal discharge, no neck pain, no sore throat - Breasts Breasts: as per HPI - Cardiovascular Cardiovascular ROS IM: no chest pain, no diaphoresis, no dyspnea, no lightheadedness, no palpitations, no syncope - Respiratory Respiratory: no cough, no dyspnea, no wheezing, no excessive phlegm production - Gastrointestinal Gastrointestinal: no abdominal pain, no diarrhea, no hematemesis, no hematochezia, no melena, no nausea, no vomiting - Genitourinary Genitourinary: no change in urinary stream, no dysuria, no flank pain, no hematuria Menstruation: as per HPI - Musculoskeletal Musculoskeletal ROS IM: as per HPI, other (Pain related to fall and fracture) - Integumentary Integumentary IM: no rash, no unusual bruising - Neurological Neurological ROS: no confusion, no convulsions, no focal weakness, no numbness, no tingling, no tremor(s) - Psychiatric Psychiatric: as per HPI - Endocrine Endocrine IM: as per HPI - Hematologic/Lymphatic Hematologic/Lymphatic: no easy bruising - Allergic/Immunologic Allergic/Immunologic: as per HPI - Constitutional Vitals: Temp Pulse Resp BP Pulse Ox 98.7 F 103 16 153/81 94 02/13/17 09:35 02/13/17 09:35 02/13/17 09:35 02/13/17 09:35 02/13/17 09:35 General appearance: Present: cooperative, A&O X 3, pleasant, no acute distress, answers questions appropriately (Patient is very soft-spoken and has trouble remembering details clearly) - Head Head exam: Present: atraumatic, normocephalic - Eye Eye exam: Present: PERRL, conjuntiva pink, sclera anicteric Pupils: Present: PERRL - ENT ENT exam: Present: normal exam, normal external ear exam - Neck Neck exam general surgery: Present: normal inspection, supple, trachea midline. Absent: lymphadenopathy - Respiratory Respiratory exam: Present: CTAB. Absent: accessory muscle use, rales, rhonchi, wheezes - Cardiovascular Cardiovascular exam: Present: RRR, +S1, +S2. Absent: diastolic murmur, gallop, rubs, systolic murmur - GI/Abdominal GI/Abdominal exam: Present: normal bowel sounds, soft, no peritoneal signs. Absent: distended, tenderness - Rectal Rectal exam: Present: deferred - Additional comments: exam deferred. - Extremities Exam Extremities exam: Present: warm, radial pulses palpable and symetrical. Absent : calf tenderness, cyanotic, pedal edema - Neurological Exam Neurological exam: Present: CN II-XII intact, oriented X3, no focal deficits. Absent: pronater drift, facial droop, speech deficit - Psychiatric Psychiatric exam: Present: normal affect, normal mood - Skin Skin exam: Present: dry, intact Internal Med - H&P Results - Labs CBC & Chem 7: 02/13/17 08:41 02/13/17 08:40 - EKG Data EKG shows normal: sinus rhythm - EKG Data Prior EKG available for review: yes When compared to previous EKG: there is no significant change Interpretation IM: suggestive of ischemia EKG comments: 02/13/17 11:08 EKG dated 01/30/17 shows sinus rhythm. EKG dated 02/13/17 shows sinus rhythm with possible left atrial enlargement and possible inferior myocardial infarction (probably old). <Mehran Moore - Last Filed: 02/13/17 13:32> Date of Encounter: 02/13/17 Internal Medicine - H&P: HPI History of present illness: Ms. Gallo is a 76 year old female All Systems PM: A 10-system review of systems was performed and is negative for pertinent findings except as documented above in the HPI. - Constitutional Vitals: Temp Pulse Resp BP Pulse Ox 98.7 F 103 16 153/81 94 02/13/17 09:35 02/13/17 09:35 02/13/17 09:35 02/13/17 09:35 02/13/17 09:35 Internal Med - H&P Results - Labs CBC & Chem 7: 02/13/17 08:41 02/13/17 08:40 - Attending Attestation I saw and examined pt. I have discussed with HAND BOX COVERER regarding management plan. Agree with the documentation.
[2017-02-13] MEDS: 0.9 % Sodium Chloride 1,000 ML IVC SCH (12:59)
[2017-02-13] MEDS ORDERED: ALPRAZolam 0.5 MG TABLET PO PRN (13:14)
[2017-02-13] MEDS ORDERED: Ipratropium/Albuterol Neb 3 ML IH PRN (13:15)
[2017-02-13] MEDS: *HR* HYDROcodone/Acet 5/325 mg TABLET PO PRN ×2 (14:32→19:51)
[2017-02-13] MEDS: Carbidopa/Levodopa 25/100 TABLET PO SCH ×2 (14:32→20:00)
--- NOTE | 2017-02-13 15:33 | Cardiology Consult Note ---
Date of Encounter: 02/13/17 Time of Encounter: 14:30 Assessment and Plan (1) Closed left femoral fracture Current Visit: Yes Status: Acute Per cardiology: -Femoral fracture after fall. -Ortho consulted. -Management per primary and orthopedic services. Qualifiers: Encounter type: initial encounter Femur location: neck Qualified Code(s) : S72.002A - Fracture of unspecified part of neck of left femur, initial encounter for closed fracture (2) CAD (coronary artery disease) Current Visit: Yes Status: Chronic Per cardiology: -Known cAD with STEMI 03/2014 with 25% left main stenosis, 30% proximal LAD calcified, 25% mid LAD calcified, 30% proximal circumflex, 50% ramus, 40% proximal RCA, 50% mid RCA, 100% distal RCA with GWYN placed. -Echo 01/28/17 with LVEF 65%, mild diastolic dysfunction, mild AR, all wall segments with normal motion. -Nuclear stress 02/2016 with gated EF 69%, negative for ischemia or infarct. -ECG with no ischemic changes. -Denies chest pain. -Reports increased shortness of breath and increased fatigue. -On plavix, and beta angela. -Recommend re-starting asa after surgery. -Will start statin. Qualifiers: Coronary Disease-Associated Artery/Lesion type: [place] artery [place] vs. transplanted heart: [place] heart Associated angina: without angina Qualified Code(s): I25.10 - Atherosclerotic heart disease of [place] coronary artery without angina pectoris (3) Descending thoracic aortic aneurysm Current Visit: Yes Status: Acute Per cardiology: -CTA chest 01/30/17 with descending thoracic aortic aneurysm noted to be 5.6 cm by 5.2 cm, slightly increased from previous CTA. -Daughter was recently evaluated at [place], she is unsure if she had further work up for aneurysm. -Records requested from [place]. -Recommned Vascular surgery consult prior to surgery. Floor notified of need for consult. (4) Pre-operative cardiovascular examination Current Visit: Yes Status: Acute Per cardiology: -Pre-op assessment for femoral neck fracture. -Recent Echo with LVEF 65% -Nuclear stress 02/2016 negative for ischemia or infarct. -Denies chest pain. -Patient is at an acceptable, intermediate risk for surgery from cardiology standpoint, however needs evaluated by vascular surgery for descending thoracic aortic aneurysm prior to surgery. -Recommend vascular surgery consult and evaluation prior to surgery. Discussion w patient/family: The assessment and plan as outlined above was discussed with the patient and/or family members who expressed understanding and agreement. All questions were answered. Thank you for involving us in the care of your patient. Please call with any questions. Discussed and reviewed with . History of Present Illness Consult date: 02/13/17 Requesting physician: Reji Melendez Consult reason: pre-op clearance Chief complaint: leg pain History of present illness: Ms. Gallo is a 76 year old female with a relevant past medical history of CAD s/p STEMI and GWYN 2014, HTN, hyperlipidemia, anxiety, AAA with repair, descending thoracic aneurysm, CKD. Patient presented to [facility] after a fall. She was noted to have a fracture of left femoral neck. Cardiology has been asked to see and evaluate the patient for surgical clearance. Patient denies chest pain. Patient admits to increased fatigue and increased shortness of breath. Daughter reports that she has been evaluated at [place] recently for hernia. Daughter reports a lot of testing completed at [place] recently. Past Med Surg Social Fam HX - Past Medical History Attestation: Yes The following information was validated with the patient. Source: patient, old records reviewed, obtained from family Medical history: coronary artery disease, hyperlipidemia, hypertension, myocardial infarction, other Psychiatric history: anxiety, depression - Past Surgical History Surgical History: angioplasty/stent, herniorrhaphy, other - Social History Smoking Status: Never smoker Smokeless Tobacco Status: No Alcohol use: none Drug use: none - Family History Mother Race: Family Member Ethnicity: Non- Living Status: Age at : 70 Cause of : Emphysema Hx Family Respiratory Disorders: Yes (Emphysema) Father Race: Family Member Ethnicity: Non- Living Status: Age at : 70 Hx Family Cardiac Disorders: Yes (HD) Hx Family Respiratory Disorders: Yes Hx Family Neurologic Disorders: Yes (Dementia) Medications and Allergies ALPRAZolam [Xanax 0.5 MG Tablet] 0.5 mg PO BID PRN 03/09/16 [History] Carbidopa/Levodopa [Carbidopa-Levodopa 25-100 Tab] 1 tab PO TID 03/09/16 [ History] HYDROcodone/Acet 5/325 mg [[place] 5-325 mg] 1 tab PO BID PRN 03/09/16 [History] Albuterol Sulfate [Albuterol Inhaler] 2 puff IH Q4HR PRN 01/05/17 [History] Clopidogrel [Plavix] 75 mg PO DAILY 01/05/17 [History] DULoxetine [Cymbalta] 30 mg PO DAILY 01/05/17 [History] Metoprolol [Lopressor] 12.5 mg PO BID 01/05/17 [History] Pantoprazole Sodium [Protonix] 40 mg PO DAILY 02/13/17 [History] amLODIPine [Norvasc] 5 mg PO DAILY 02/13/17 [History] Allergies No Known Allergies Allergy (Verified 03/09/16 15:13) All Systems Review: A 10-system review of systems was performed and is negative for pertinent findings except as documented above in the HPI. - Cardiovascular Cardiovascular: as per HPI, dyspnea on exertion Physical Examination Vital Signs Temperature 98.4 F 02/13/17 04:16 Pulse Rate 111 02/13/17 04:16 Respiratory Rate 16 02/13/17 04:16 Blood Pressure 148/87 02/13/17 04:16 O2 Sat by Pulse Oximetry 97 02/13/17 04:16 Temperature 98.7 F 02/13/17 09:35 Pulse Rate 103 02/13/17 09:35 Respiratory Rate 16 02/13/17 09:35 Blood Pressure 153/81 02/13/17 09:35 O2 Sat by Pulse Oximetry 94 02/13/17 09:35 Oxygen Delivery Oxygen Delivery Nasal Cannula General: Conversant, No Apparent Distress HEENT: Atraumatic, Normocephaly, Mucus Membranes Moist Neck: No JVD, Normal carotid pulses Cardiac: Reg Rate and Rhythm, Normal S1 and S2, No Murmur Lungs: Normal Breath Sounds, No Wheeze, Rales, Rhonchi Neuro: Alert and responsive, No focal deficits noted Abdomen: Soft, Non-Tender Skin: No rashes noted on visualized skin Musculoskeletal: No Chest Wall Tenderness, Other (Pain in left leg. ) Extremities: No Clubbing, No Cyanosis, No Edema, Normal Pulses Results 02/13/17 08:41 02/13/17 08:[address] 02/13/17 05:14 IMPRESSION: No definite fracture. D/ / Eric Paris MD / Eric Paris MD Interpreting Provider: Eric Paris MD Head CT 02/13/17 05:14 IMPRESSION: 1. No fracture or acute hemorrhage. 2. Small vessel chronic ischemic changes. Small foci of acute ischemia cannot be excluded. D/ / Eric Paris MD / Eric Paris MD Interpreting Provider: Eric Paris MD Hip CT 02/13/17 05:14 IMPRESSION: Impacted subcapital fracture of left femoral neck. D/ / 02/13/2017 08:54:10 Vicente Chavez MD / earleatha Interpreting Provider: Vicente Chavez MD Lumbar Spine CT 02/13/17 05:14 IMPRESSION: Scoliosis with secondary spondylosis but no definite acute fracture. D/ / Eric Paris MD / Eric Paris MD Interpreting Provider: Eric Paris MD Thoracic Spine CT 02/13/17 05:14 IMPRESSION: No definite fracture. D/ / Eric Paris MD / Eric Paris MD Interpreting Provider: Eric Paris MD Active Medications Acetaminophen (Tylenol) 650 mg PO Q6HR PRN PRN Reason: Mild Pain (1-3) Stop: 08/15/17 10:33 Hydrocodone Bitart/Acetaminophen ([place] 5-325 Mg) 1 tab PO Q4HR PRN PRN Reason: Moderate Pain (4-6) Stop: 08/15/17 10:33 Last Admin: 02/13/17 14:32 Dose: 1 tab Albuterol/Ipratropium (Duoneb) 3 ml IH [id number] PRN; Protocol PRN Reason: Shortness Of Breath/Wheezing Stop: 08/15/17 13:16 Alprazolam (Xanax) 0.5 mg PO BID PRN; Protocol PRN Reason: Anxiety Stop: 08/15/17 13:15 Amlodipine Besylate (Norvasc) 5 mg PO DAILY TIFFANIE PRN Reason: Protocol Stop: 08/16/17 09:01 Carbidopa/Levodopa (Sinemet) 1 each PO TID [facility] Stop: 08/15/17 15:01 Last Admin: 02/13/17 14:32 Dose: 1 each Duloxetine HCl (Cymbalta) 30 mg PO DAILY [facility] Stop: 08/16/17 09:01 Hydromorphone HCl (Dilaudid) 1 mg IVP Q6HR PRN PRN Reason: Moderate Pain Stop: 08/15/17 15:28 Sodium Chloride (0.9 % Sodium Chloride) 1,000 mls @ 70 mls/hr IVC .[id number] [facility] Stop: 08/15/17 13:01 Last Admin: 02/13/17 12:59 Dose: 70 mls/hr Metoprolol Tartrate (Lopressor) 12.5 mg PO BID [facility] Stop: 08/15/17 21:01 Morphine Sulfate (Morphine Sulfate) 2 mg IVP Q4HR PRN PRN Reason: Severe Pain (7-10) Stop: 08/15/17 10:33 Last Admin: 02/13/17 12:59 Dose: 2 mg Naloxone HCl (Narcan) 0.4 mg IVP Q2MIN PRN PRN Reason: Opioid Reversal Stop: 08/15/17 10:33 Ondansetron HCl (Zofran) 4 mg IVP Q8HR PRN PRN Reason: Nausea And Vomiting Stop: 08/15/17 10:33 Pantoprazole Sodium (Protonix) 40 mg IVP DAILY [facility] Stop: 08/16/17 09:01 - Imaging and Cardiology Chest Xray: report reviewed Stress Test: report reviewed Echo: report reviewed Cardiac cath: report reviewed - EKG Interpretation EKG results cardiology: personally reviewed (ECG with sinus rhythm, HR 98.), other (Telemetry reviewed with average HR 96, sinus rhythm.) Consult Discharge Plan - Plan Referrals: Bj Card MD [Primary Care Provider] -
--- NOTE | 2017-02-13 18:35 | Orthopedic Consult Note ---
Date of Encounter: 02/13/17 Time of Encounter: 18:28 History of Present Illness Chief complaint: Left Hip and back pain HPI: Ms. 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 Patient states that she was attempting open refrigerator in the rubber mold maker hours and posterior Walker side and was opening a door when she lost her merchandising director on the handle the door and fell backwards. She struck her head as well as her hip. She had immediate pain. She was brought to the emergency room where CT scans were performed. This included a CT scan of the left hip which revealed a essence nondisplaced, impacted left femoral neck fracture. She is admitted for definitive management. The patient was scheduled to have a hiatal hernia repaired at [facility] this week but this was canceled due to the continued use of Plavix. The patient had a complete workup performed and was cleared to proceed with surgery. The patient does have a known thoracic aortic aneurysm. She is also a history of having had a repaired abdominal aortic aneurysm. Complete history and physical data please refer the formal medical chart. Pertinent orthopedic examination shows no significant leg length discrepancy. She does have pain with any attempts examination left hip. Distal neurosensory exam is grossly intact. I reviewed a CT scan of the hips. This reveals an impacted, minimally displaced left femoral neck fracture. Impression: Left femoral neck fracture Recommendation: I discussed with the patient and her daughter that this is a surgical fracture and I would recommend proceeding with a limited surgical treatment in the form of percutaneous cannulated screw fixation of the left hip. I discussed the surgical procedure as well as potential risks and complications including but not limited to bleeding infection blood clots nerve injury stiffness malunion nonunion and avascular necrosis of the femoral head. The other option would be to proceed with a hemiarthroplasty though with the patient's associated history and medical conditions I feel that a limited approach is optimum at this time. The patient has been cleared by cardiology to proceed, the patient is to be seen and evaluated by vascular surgery in reference to her thoracic aortic aneurysm. Thank you very much for allowing me to see care for Mrs. Gallo. Sincerely, Erasmo Holley,DO Past Med Surg Social Fam HX - Past Medical History Medical history: coronary artery disease, hyperlipidemia, hypertension, myocardial infarction, other Psychiatric history: anxiety, depression - Past Surgical History Surgical History: angioplasty/stent, herniorrhaphy, other - Social History Smoking Status: Never smoker Smokeless Tobacco Status: No Alcohol use: none Drug use: none - Family History Mother Race: Family Member Ethnicity: Non- Living Status: Age at : 70 Cause of : Emphysema Hx Family Respiratory Disorders: Yes (Emphysema) Father Race: Family Member Ethnicity: Non- Living Status: Age at : 70 Hx Family Cardiac Disorders: Yes (HD) Hx Family Respiratory Disorders: Yes Hx Family Neurologic Disorders: Yes (Dementia) Medications and Allergies ALPRAZolam [Xanax 0.5 MG Tablet] 0.5 mg PO BID PRN 03/09/16 [History] Carbidopa/Levodopa [Carbidopa-Levodopa 25-100 Tab] 1 tab PO TID 03/09/16 [ History] HYDROcodone/Acet 5/325 mg [[place] 5-325 mg] 1 tab PO BID PRN 03/09/16 [History] Albuterol Sulfate [Albuterol Inhaler] 2 puff IH Q4HR PRN 01/05/17 [History] Clopidogrel [Plavix] 75 mg PO DAILY 01/05/17 [History] DULoxetine [Cymbalta] 30 mg PO DAILY 01/05/17 [History] Metoprolol [Lopressor] 12.5 mg PO BID 01/05/17 [History] Pantoprazole Sodium [Protonix] 40 mg PO DAILY 02/13/17 [History] amLODIPine [Norvasc] 5 mg PO DAILY 02/13/17 [History] Allergies No Known Allergies Allergy (Verified 03/09/16 15:13) All Systems Reviewed: A 10-system review of systems was performed and is negative for pertinent findings except as documented above in the HPI. Physical Exam - Constitutional Vitals: Temp Pulse Resp BP Pulse Ox 98 F 93 16 122/68 97 02/13/17 14:32 02/13/17 14:32 02/13/17 14:32 02/13/17 14:32 02/13/17 14:32 Results - Labs Result Diagrams: 02/13/17 08:41 02/13/17 08:40 Labs: Abnormal lab results WBC 14.3 K/mcL (4.3-11.1) H 02/13/17 08:41 MPV 9.0 fL (9.4-12.4) L 02/13/17 08:41 Neutrophils # 12.0 K/mcL (1.6-8.9) H 02/13/17 08:41 APTT 25.8 Seconds (26.0-36.0) L 02/13/17 08:41 Glucose 122 mg/dL (70-99) H 02/13/17 08:40 All other labs normal. - Diagnostic results Hip CT: image reviewed Consult Discharge Plan - Plan Referrals: Bj Card MD [Primary Care Provider] -
[2017-02-14] MEDS: *HR* HYDROcodone/Acet 5/325 mg TABLET PO PRN ×2 (00:29→07:20)
[2017-02-14 01:28] LABS: Basophils # 0.1 K/mcL (0.0-0.2); Basophils % 0.5 %; Eosinophils # 0.4 K/mcL (0.0-0.6); Eosinophils % 3.7 %; Hemoglobin 11.1 g/dL (11.5-15.4); Immature Granulocytes % 0.4 % (0-4); Lymphocytes # 2.3 K/mcL (0.6-4.6); Lymphocytes % 20.1 %; Mean Corpuscular HGB Conc 33.6 g/dL (31.6-35.5); Mean Corpuscular Hemoglobin 30.6 pg (28.0-33.3); Mean Corpuscular Volume 90.9 fL (83.0-100.0); Mean Platelet Volume 9.8 fL (9.4-12.4); Monocytes # 0.9 K/mcL (0.0-1.3); Monocytes % 7.8 %; Neutrophils # 7.8 K/mcL (1.6-8.9); Platelet Count 185 K/mcL (140-400); Red Blood Count 3.63 M/mcL (3.82-4.97); Red Cell Distribution Width 12.8 % (11.5-14.5); Segmented Neutrophils % 67.5 %
[2017-02-14 01:36] LABS: INR 1.1; Prothrombin Time 12.3 Seconds (9.4-12.1)
[2017-02-14 01:38] LABS: Activated Partial Thrombo Time 25.8 Seconds (26.0-36.0)
[2017-02-14 01:42] LABS: BUN/Creatinine Ratio 13 (6-26); Blood Urea Nitrogen 12 mg/dL (7-20); Calcium 8.7 mg/dL (8.6-10.8); Carbon Dioxide 29 mEq/L (19-29); Chloride 106 mEq/L (98-109); Chol/HDL Ratio 3.5 (0-4.9); Cholesterol 167 mg/dL (< 200); Glucose 107 mg/dL (70-99); HDL Cholesterol 48 mg/dL (40-59); LDL Cholesterol,Calculated 105 mg/dL (0-99); Magnesium 1.7 mg/dL (1.6-2.6); Osmolality,Calculated 288 (280-300); Potassium 3.4 mEq/L (3.5-4.5); Sodium 139 mEq/L (136-145); Triglycerides 71 mg/dL (< 150); eGFR For African Americans > 60 (> 60); eGFR For Non-African Americans 59 (> 60)
[2017-02-14] MEDS: *HR* HYDROmorphone (PF) 1 MG/ML SYRINGE IVP PRN ×3 (03:14→20:18)
[2017-02-14] MEDS: 0.9 % Sodium Chloride 1,000 ML IVC SCH (03:21)
[2017-02-14] MEDS: Carbidopa/Levodopa 25/100 TABLET PO SCH ×3 (07:19→21:02)
--- NOTE | 2017-02-14 08:01 | Vascular/Endovasc Consult Note ---
Date of Encounter: 02/14/17 Time of Encounter: 07:56 Assessment and Plan (1) Hypertension Current Visit: Yes Status: Chronic Patient has history of hypertension and has multiple risk factors for vascular disease. Recommend careful attention to control of blood pressure maintaining systolic pressure approximately 120-130 mmHg to minimize risks for thoracic aortic aneurysm. Qualifiers: Hypertension type: essential hypertension Qualified Code(s): I10 - Essential (primary) hypertension (2) Parkinson disease Current Visit: Yes Status: Chronic Patient is under medical treatment for Parkinson's disease. She has a diminished voice projection and left upper extremity tremor. (3) Closed left femoral fracture Current Visit: Yes Status: Acute The patient has a closed left femoral subcapital neck fracture. The patient is to go to surgery later today for surgical treatment of this fracture. There is no vascular surgery contraindication for her to proceed with separation is planned. Qualifiers: Encounter type: initial encounter Femur location: neck Qualified Code(s) : S72.002A - Fracture of unspecified part of neck of left femur, initial encounter for closed fracture (4) Descending thoracic aortic aneurysm Current Visit: Yes Status: Chronic Patient has a long history of the thoracic aortic aneurysm. This is an asymptomatic process. The aneurysm measures approximately 5.5 cm in diameter. There are no signs of hematoma or dissection or rupture. There is no contraindication proceed with hip fracture surgery as planned. Patient will need follow-up for this aneurysm in the future. She is not an appropriate candidate for surgery of the aneurysm here at [facility] and would recommend that she pursue her follow-up as directed by her primary care physician at a tertiary care hospital. Of note the patient denies any previous surgery for an abdominal aortic aneurysm though elsewhere in the patient's chart there is noted she is status post abdominal aortic aneurysm repair. I have no independent confirmation of this at the time of this dictation.. - History of Present Illness Consult date: 02/14/17 Requesting physician: Erasmo Holley Consult reason: Thoracic aortic aneurysm Chief complaint: Left hip pain History of present illness: Ms. Gallo is a 76 year old female Admitted via the emergency room early yesterday morning. 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 She was trying to open a refrigerator door and fell backwards and landed on her left hip. She had no head or neck trauma and denies any loss of consciousness. The patient states that she has not had problems with frequent falls. 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 As part of her evaluation and cardiology consultation was obtained. They reviewed his series of information concerning this patient and also the fact that she has a known thoracic aortic aneurysm. Vascular surgery was asked to see the patient because of this history of the aneurysm. The patient is not a complete historian but is I can obtain from her she denies any symptoms related to the thoracic aortic aneurysm. She states that this has been known for about 10 years. She and her primary care physician have discussed this. The patient does not remember being referred to either vascular thoracic surgery for evaluation of this lesion. She has had a number of CT scans of her abdomen and chest for a variety of reasons over the past number of years. She had a recent CT scan of the chest that was of poor quality but demonstrates a proximally 5.5 cm thoracic aortic aneurysm. The most recent study was done without contrast which of course limits the accuracy. There is no signs of dissection or rupture. On review I note that she had had a CT angiogram of the chest on January 30 for shortness of breath to apparently rule out pulmonary embolism. At that time the thoracic aneurysm was measured at 5.6 cm and again no dissection was found. The patient does clearly have ectasia of the thoracic aorta and dense calcification of the vessel. On January [address] scan of the abdomen which showed a very calcific vessel but no abdominal aortic aneurysm. She has a very large ventral hernia and a very large paraesophageal hiatal hernia. As best I can determine the patient was scheduled to see Dr. Calloway at [facility] for evaluation of repair of this paraesophageal hiatal hernia. She does not know of any consultations for the thoracic evaluation. It should be noted that she had a small bowel obstruction that was manually reduced in the ER in December of this year. She was also admitted to [facility] from December 31 to the . Past history that is significant is that of coronary artery disease and myocardial infarction. She had had a right coronary artery stent [place] in [address] Ponce. She also has a history of hypertension hyperlipidemia and Parkinson's disease. Past Med Surg Social Fam HX - Past Medical History Medical history: coronary artery disease, hyperlipidemia, hypertension, myocardial infarction, other Psychiatric history: anxiety, depression - Past Surgical History Surgical History: angioplasty/stent, herniorrhaphy, other - Social History Smoking Status: Never smoker Smokeless Tobacco Status: No Alcohol use: none Drug use: none - Family History Mother Race: Family Member Ethnicity: Non- Living Status: Age at : 70 Cause of : Emphysema Hx Family Respiratory Disorders: Yes (Emphysema) Father Race: Family Member Ethnicity: Non- Living Status: Age at : 70 Hx Family Cardiac Disorders: Yes (HD) Hx Family Respiratory Disorders: Yes Hx Family Neurologic Disorders: Yes (Dementia) Medications and Allergies ALPRAZolam [Xanax 0.5 MG Tablet] 0.5 mg PO BID PRN 03/09/16 [History] Carbidopa/Levodopa [Carbidopa-Levodopa 25-100 Tab] 1 tab PO TID 03/09/16 [ History] HYDROcodone/Acet 5/325 mg [[place] 5-325 mg] 1 tab PO BID PRN 03/09/16 [History] Albuterol Sulfate [Albuterol Inhaler] 2 puff IH Q4HR PRN 01/05/17 [History] Clopidogrel [Plavix] 75 mg PO DAILY 01/05/17 [History] DULoxetine [Cymbalta] 30 mg PO DAILY 01/05/17 [History] Metoprolol [Lopressor] 12.5 mg PO BID 01/05/17 [History] Pantoprazole Sodium [Protonix] 40 mg PO DAILY 02/13/17 [History] amLODIPine [Norvasc] 5 mg PO DAILY 02/13/17 [History] Allergies No Known Allergies Allergy (Verified 03/09/16 15:13) All Systems Review: A 10-system review of systems was performed and is negative for pertinent findings except as documented above in the HPI. Exam Vital Signs, Last 4 Hours Temp Pulse Resp BP Pulse Ox 02/14/17 06:30 98.3 F 65 18 151/75 93 Exam: On exam today the patient is lying in bed on [address] She is a elderly white female who looks older than her stated age. She is very pale and white in complexion. She is extremely poor voice power and it is difficult to understand her due to her diminished projection. Upper extremity pulses are 2+ and symmetrical. HEENT exam reveals an elderly white female. She has facial symmetry. Carotid pulses are 2+. She has no carotid bruits. There is no JVD. She has facial symmetry. Pulmonary exam reveals her lungs to be clear anteriorly. Cardiac exam reveals a regular rate and rhythm. I detect no rub or murmur. Her abdomen is obese and soft and nontender. She has a ventral hernia. She has multiple previous surgical scars. There are no abdominal bruits. I can palpate no masses. Lower extremity exam reveals palpable femoral and popliteal and pedal pulses bilaterally. She has no lower extremity edema. There are no signs of cyanosis. She maintains her left lower extremity in a flexed position on has discomfort upon manipulation. Patient has a resting tremor of the left upper extremity Consult Discharge Plan - Plan Referrals: Bj Card MD [Primary Care Provider] -
--- NOTE | 2017-02-14 08:16 | Anesthesia Evaluation PreOp ---
Date of Encounter: 02/14/17 Time of Encounter: 08:14 - Past History Planned Operation: Percutaneous Pinning Left Hip Cardiac History: [place] (STEMI on 04/08), HTN, Hyperlipidemia, Cardiac Stent ([facility] in 2013), Other (descending aortic aneurysm approximately 5.5 cm in diameter) Pulmonary History: Denies Any Significant HX HEALTH PROMOTION COORDINATOR History: Other (Parkinsons disease) Other Medical History: Other (anxiety/depression) Anesthesia History: No Prior Anesthetic Complications, Past Anesthesia Alcohol Use: none Drug use: none Medications and Allergies ALPRAZolam [Xanax 0.5 MG Tablet] 0.5 mg PO BID PRN 03/09/16 [History] Carbidopa/Levodopa [Carbidopa-Levodopa 25-100 Tab] 1 tab PO TID 03/09/16 [ History] HYDROcodone/Acet 5/325 mg [[place] 5-325 mg] 1 tab PO BID PRN 03/09/16 [History] Albuterol Sulfate [Albuterol Inhaler] 2 puff IH Q4HR PRN 01/05/17 [History] Clopidogrel [Plavix] 75 mg PO DAILY 01/05/17 [History] DULoxetine [Cymbalta] 30 mg PO DAILY 01/05/17 [History] Metoprolol [Lopressor] 12.5 mg PO BID 01/05/17 [History] Pantoprazole Sodium [Protonix] 40 mg PO DAILY 02/13/17 [History] amLODIPine [Norvasc] 5 mg PO DAILY 02/13/17 [History] Allergies No Known Allergies Allergy (Verified 03/09/16 15:13) - Meds/Allergy Pre-op Review Medications Reviewed: Yes Allergies Reviewed: Yes Beta Blockers on Current Med List: Yes If Beta Blockers taken, Date/Time (Last Dose taken): 02/14/2017 at 0719 Anesthesia Results - Labs 02/14/17 01:07 02/14/17 01:07 Laboratory Tests 02/14/17 01:07 PT 12.3 H INR 1.1 APTT 25.8 L - Imaging EKG: report reviewed (01/30/2017 SR) Additional studies: 01/28/2017 Echo Impressions: Normal LV systolic function, LVEF 65%. Mild left ventricular diastolic dysfunction. Normal right ventricular size and function. Mild aortic regurgitation. No evidence of pulmonary hypertension. 03/10/2016 Stress Impression: Pharmacologic stress ECG is non diagnostic for ischemia due to failure to reach target heart rate. Gated EF = 69%. Perfusion imaging was negative for ischemia or infarct. Anesthesia Exam Vital Signs/O2 Sat, Most Current Temp Pulse Resp BP Pulse Ox 98.3 F 65 18 151/75 93 02/14/17 06:30 02/14/17 06:30 02/14/17 06:30 02/14/17 06:30 02/14/17 06:30 Height: 5'/1.52 m Weight: 128 lbs/58.5 kg NPO (# of Hours): 8 Pain Scale: 6 (left hip) Pain Scale Used: Numeric (1 - 10) - HEENT Pupil (Motor): EOMI Mallampati: II Teeth: Normal Denture Type: Upper: Complete Oral Opening: Greater than 3 - HEALTH PROMOTION COORDINATOR LOC: Oriented HEALTH PROMOTION COORDINATOR Motor: Normal RUE, Normal LUE, Normal RLE, Normal LLE, Normal Face HEALTH PROMOTION COORDINATOR Sensory: Normal: RUE, LUE, RLE, LLE, Face - Cardiac Rhythm: Regular Murmur: None - Pulmonary Breath Sounds: bilateral Clear Respiratory Effort: Symmetrical Anesthesia Assess/Plan ASA Score: 4 Modified [place] Scale for Level of Consciousness: Cooperative, oriented, and tranquil Anesthetic Plan: General Monitoring Plan: Standard Monitors Recovery Plan: PACU
[2017-02-14] MEDS ORDERED: Pantoprazole 40 MG VIAL IVP SCH (09:00)
[2017-02-14] MEDS ORDERED: amLODIPine 5 MG TABLET PO SCH (09:00)
--- NOTE | 2017-02-14 10:11 | Internal Med Progress Note ---
Date of Encounter: 02/14/17 Time of Encounter: 09:05 - Assessment and plan (1) Closed left femoral fracture Current Visit: Yes Status: Acute Assessment and plan: s/p mechanical fall Orthopedic surgery consultation appreciated Awaiting vascular surgery clearance for surgery patient cleared for surgery from cardiac stand point Aggressive pain control Will increase Dilaudid to q4h if pain not appropriately controlled SCD for dvt prophylaxis and heparin SQ after surgery Qualifiers: Encounter type: initial encounter Femur location: neck Qualified Code(s) : S72.002A - Fracture of unspecified part of neck of left femur, initial encounter for closed fracture (2) CAD (coronary artery disease) Current Visit: Yes Status: Chronic Assessment and plan: no acute signs of angina presenta t htis itme continue home medications Holding ASA and plavix at this time, restart after surgery continue metoprolol and statin Qualifiers: Coronary Disease-Associated Artery/Lesion type: [place] artery [place] vs. transplanted heart: [place] heart Associated angina: without angina Qualified Code(s): I25.10 - Atherosclerotic heart disease of [place] coronary artery without angina pectoris (3) Descending thoracic aortic aneurysm Current Visit: Yes Status: Chronic Assessment and plan: Aggressive BP control Current BP within acceptable range added Hydralazine 10mg IV q6h BP>140 (4) Hyperlipidemia Current Visit: Yes Status: Chronic Assessment and plan: continue statin therapy Qualifiers: Hyperlipidemia type: pure hypercholesterolemia Qualified Code(s): E78.00 - Pure hypercholesterolemia, unspecified; E78.0 - Pure hypercholesterolemia (5) Hypertension Current Visit: Yes Status: Chronic Assessment and plan: BP within acceptable range at this time after receiving home medications and Hydralazine 10mg IV will closely monitor Hydralazine 10mg IVP q6h prn SBP>140 Qualifiers: Hypertension type: essential hypertension Qualified Code(s): I10 - Essential (primary) hypertension (6) DVT prophylaxis Current Visit: No Status: Acute Assessment and plan: SCD (7) Hypokalemia Current Visit: Yes Status: Acute Assessment and plan: K supplemented continue to monitor electrolytes and replace as needed - Subjective Interval history: Patient seen and examined at bedside. Resting in bed and reports of being in pain and feeling nauseous. Admitted for acute left femoral neck fracture. Awaiting surgery-pending vascular surgery clearance given history of large thoracic aortic aneurysm. - Constitutional Vitals: Temp Pulse Resp BP Pulse Ox 98.3 F 65 18 120/64 93 02/14/17 06:30 02/14/17 09:21 02/14/17 06:30 02/14/17 09:21 02/14/17 06:30 General appearance: Present: cooperative, mild distress (painful distress), A&O X 3, pleasant, answers questions appropriately (Patient is very soft-spoken) - Head Head exam: Present: atraumatic, normocephalic - Eye Eye exam: Present: conjuntiva pink, sclera anicteric - Respiratory Respiratory exam: Present: CTAB. Absent: respiratory distress, wheezes - Cardiovascular Cardiovascular exam: Present: RRR, +S1, +S2. Absent: diastolic murmur, gallop, rubs, systolic murmur - GI/Abdominal GI/Abdominal exam: Present: normal bowel sounds, soft, no peritoneal signs. Absent: distended, tenderness - Extremities Exam Extremities exam: Present: warm, radial pulses palpable and symetrical. Absent : calf tenderness, cyanotic, pedal edema - Neurological Exam Neurological exam: Present: alert, oriented X3 - Psychiatric Psychiatric exam: Present: normal affect, normal mood Internal Medicine: Result - Labs CBC & Chem 7: 02/14/17 01:07 02/14/17 01:07 Labs: Short CBC 02/14/17 Range/Units 01:07 WBC 11.5 H (4.3-11.1) K/mcL Hgb 11.1 L (11.5-15.4) g/dL Hct 33.0 L (35.3-44.9) % Plt Count 185 (140-400) K/mcL Neutrophils # 7.8 (1.6-8.9) K/mcL BMP 02/14/17 01:07 Sodium 139 Potassium 3.4 L Chloride 106 Carbon Dioxide 29 BUN 12 Creatinine 0.93 Glucose 107 H Calcium 8.7 - ABG Interpretation ABG results: PT/INR, D-dimer PT 12.3 Seconds (9.4-12.1) H 02/14/17 01:07 - VTE Documentation of Mechanical Device: Graduated compression elastic hosiery Consult Discharge Plan - Plan Referrals: Bj Card MD [Primary Care Provider] -
[2017-02-14] MEDS ORDERED: *HR* FentaNYL (PF) 100 MCG/2 ML VIAL ONE (11:24)
[2017-02-14] MEDS ORDERED: *HR* Propofol 200 MG/20 ML VIAL IVP ONE (11:24)
[2017-02-14] MEDS ORDERED: *HR* Morphine 10 MG/ML VIAL ONE (11:24)
[2017-02-14] MEDS ORDERED: Dexamethasone 4 MG/ML VIAL ONE (11:25)
[2017-02-14] MEDS ORDERED: Lidocaine -MPF 2% 2 ML VIAL ONE (11:25)
[2017-02-14] MEDS ORDERED: Ondansetron 4 MG/2 ML VIAL ONE (11:25)
[2017-02-14] MEDS ORDERED: *HR* Promethazine 25 MG/ML VIAL IVP PRN ×2 (11:45→16:48)
[2017-02-14] MEDS ORDERED: *HR* HYDROmorphone (PF) 1 MG/ML SYRINGE IVP PRN (11:45)
[2017-02-14] MEDS ORDERED: Esmolol 100 MG/10 ML VIAL IVP ONE (11:54)
[2017-02-14] MEDS ORDERED: ceFAZolin 2,000 MG in D5% in Water 100 ML IVPB ONE (12:00)
[2017-02-14] MEDS ORDERED: *HR* Phenylephrine 10 MG/ML VIAL ONE (12:13)
[2017-02-14] MEDS ORDERED: *HR* Labetalol 20 MG/4 ML SYRINGE IVP ONE (13:40)
--- NOTE | 2017-02-14 13:53 | Operative Note ---
Date of procedure: 02/14/17 Pre-op diagnosis: Left femoral neck fracture Post-op diagnosis: same Procedure: #1. Percutaneous cannulated screw fixation left hip #2. Fluoroscopic guidance for screw fixation left hip Implants: #3 Synthes 7.3 mm x 16 mm thread length cannulated screws Complications: None Anesthesia: KEVINA Surgeon: Erasmo Holley Estimated blood loss (cc): 100 Specimen: None Condition: stable Disposition: PACU Procedure in Detail: Gross findings: Preoperative CT scan revealed a minimally displaced subcapital type femoral neck fracture of the left hip. This is associated with some rotation and valgus positioning. Intraoperative fluoroscopy fluoroscopy was used to guide the reduction to improve the fracture. The rotation was corrected the patient continued have a very mild valgus position. The fracture was stabilized with 37.3 mm cannulated hip screws placed with fluoroscopic verification. No complications sutures were encountered. Procedure: Patient was taken the operating room and while on the hospital bed was administered general anesthesia. Patient was then transferred to the [facility] fracture table. Left lower extremity was placed in longitudinal traction right lower extremity was placed in well leg [place]. At this time fluoroscopy was used to guide the reduction of the fracture. This was accomplished with a combination of internal rotation and adduction and slight traction. Once acceptable reduction of been obtained the left lower extremity was prepped and draped in normal standard fashion for surgery. At this time prior to skin incision it was noted that the threaded guide pins for proceeding with the surgical procedure were not present within the appropriate tray, the appropriate pins were ultimately found but required sterilization resulting in an extended delay in the operating time. Once these were obtained and appropriately sterilized the surgery continued. A proximally 5 cm incision was created over the lateral left proximal femur. With fluoroscopic guidance 3 guide pins were placed. The first was placed in a slightly inferior position and a cannulated screw was placed trying to lock down the inferior portion of the head to prevent any further valgus positioning. 2 additional pins were placed into the head. Position of the pin was verified followed by placing the appropriate sized 7.3 mm cannulated screw. Once screw location was verified be well contained within the femoral head the pins were removed. At this time the incision was closed with #1 Vicryl in the deep tissue as well as #1 Vicryl in the deep subtendinous tissue followed by immediate subtendinous tissue approximation with the multiple inverted interrupted 2-0 undyed Vicryl and then skin approximation with a running septic stitch of 2-0 stratafix. Skin glue was applied. Once "hardened. sterile dressing consisting of operative foam was applied and secured. Patient was now transferred from the fracture table to the hospital bed and transported to the postanesthesia care unit in stable and satisfactory condition. All sponge and needle evidence for counts are correct. No specimens were sent for pathology.
--- NOTE | 2017-02-14 14:22 | Anesthesia Evaluation Post Op ---
Date of Encounter: 02/14/17 Time of Encounter: 14:21 - Vital Signs Vital Signs: Vital Signs/O2 Sat, Most Current Temp Pulse Resp BP Pulse Ox 97.8 F 67 14 129/65 95 02/14/17 13:59 02/14/17 14:09 02/14/17 14:09 02/14/17 14:09 02/14/17 14:09 - Lungs Lungs: Clear Ascult./Percussion - Airway Airway: Non-obstructed - Cardiovascular Regular Rate - Mental Status Mental Status: Alert & Oriented, Answers Appropriately - Pain Pain Scale: 0 Pain Scale used: Numeric (1 - 10) - Nausea Vomiting Nausea Vomiting: Not Present - Hydration Hydration: NPO, [place] catheter - Discharge PostOp Status: Transfer Patient to floor
[2017-02-14] MEDS ORDERED: *HR* HYDROcodone/Acet 5/325 mg TABLET PO PRN (14:33)
[2017-02-14] MEDS ORDERED: Acetaminophen 325 MG TABLET PO PRN (14:33)
[2017-02-14] MEDS ORDERED: Naloxone 0.4 MG/ML INJ IVP PRN (14:33)
[2017-02-14] MEDS ORDERED: Ondansetron 4 MG/2 ML VIAL IVP PRN (14:33)
[2017-02-14] MEDS ORDERED: 0.9 % Sodium Chloride 1,000 ML IVC SCH (14:33)
[2017-02-14] MEDS ORDERED: Ipratropium/Albuterol Neb 3 ML IH PRN (14:33)
[2017-02-14] MEDS ORDERED: *HR* Labetalol 20 MG/4 ML SYRINGE IVP PRN (15:46)
[2017-02-14] MEDS: ceFAZolin 2,000 MG in D5% in Water 100 ML IVPB SCH (15:49)
[2017-02-14] MEDS: *HR* Enoxaparin 30 MG/0.3 ML SYRINGE SQ SCH (16:41)
[2017-02-14] MEDS: ALPRAZolam 0.5 MG TABLET PO PRN (20:18)
[2017-02-15] MEDS: ceFAZolin 2,000 MG in D5% in Water 100 ML IVPB SCH (00:08)
[2017-02-15 01:15] LABS: Basophils % 0.1 %; Eosinophils % 0.1 %; Hematocrit 37.2 % (35.3-44.9); Hemoglobin 12.2 g/dL (11.5-15.4); Immature Granulocytes % 0.5 % (0-4); Lymphocytes # 0.9 K/mcL (0.6-4.6); Mean Corpuscular HGB Conc 32.8 g/dL (31.6-35.5); Mean Corpuscular Hemoglobin 30.3 pg (28.0-33.3); Mean Corpuscular Volume 92.3 fL (83.0-100.0); Mean Platelet Volume 9.7 fL (9.4-12.4); Monocytes # 0.4 K/mcL (0.0-1.3); Neutrophils # 9.3 K/mcL (1.6-8.9); Platelet Count 197 K/mcL (140-400); Red Blood Count 4.03 M/mcL (3.82-4.97); Red Cell Distribution Width 12.9 % (11.5-14.5); Segmented Neutrophils % 87.3 %
[2017-02-15 01:30] LABS: BUN/Creatinine Ratio 11 (6-26); Blood Urea Nitrogen 11 mg/dL (7-20); Calcium 9.5 mg/dL (8.6-10.8); Carbon Dioxide 23 mEq/L (19-29); Chloride 106 mEq/L (98-109); Glucose 138 mg/dL (70-99); Magnesium 1.7 mg/dL (1.6-2.6); Osmolality,Calculated 288 (280-300); Phosphorous 3.6 mg/dL (2.3-4.7); Sodium 138 mEq/L (136-145); eGFR For African Americans > 60 (> 60); eGFR For Non-African Americans 55 (> 60)
[2017-02-15 02:11] LABS: Potassium 4.6 mEq/L (3.5-4.5)
[2017-02-15] MEDS: *HR* HYDROmorphone (PF) 1 MG/ML SYRINGE IVP PRN (02:22)
[2017-02-15] MEDS: *HR* Enoxaparin 30 MG/0.3 ML SYRINGE SQ SCH ×2 (05:01→18:42)
[2017-02-15] MEDS: amLODIPine 5 MG TABLET PO SCH (08:42)
[2017-02-15] MEDS: Pantoprazole 40 MG VIAL IVP SCH (08:42)
[2017-02-15] MEDS: Carbidopa/Levodopa 25/100 TABLET PO SCH ×3 (08:43→20:37)
--- NOTE | 2017-02-15 09:05 | Internal Med Progress Note ---
Date of Encounter: 02/15/17 Time of Encounter: 09:03 - Assessment and plan (1) Closed left femoral fracture Current Visit: Yes Status: Acute Assessment and plan: s/p mechanical fall Orthopedic surgery consultation appreciated POD #1 Left femoral neck fracture repair pain control PT/OT evaluation Lovenox SQ for DVT ppx mental health social worker evaluation for placement Qualifiers: Encounter type: initial encounter Femur location: neck Qualified Code(s) : S72.002A - Fracture of unspecified part of neck of left femur, initial encounter for closed fracture (2) CAD (coronary artery disease) Current Visit: Yes Status: Chronic Assessment and plan: no acute signs of angina presenta t htis itme continue home medications awaiting surgical clearance to restart ASA and plavix continue metoprolol and statin Qualifiers: Coronary Disease-Associated Artery/Lesion type: [place] artery [place] vs. transplanted heart: [place] heart Associated angina: without angina Qualified Code(s): I25.10 - Atherosclerotic heart disease of [place] coronary artery without angina pectoris (3) Descending thoracic aortic aneurysm Current Visit: Yes Status: Chronic Assessment and plan: Aggressive BP control Current BP within acceptable range added Hydralazine 10mg IV q6h BP>140 (4) Hyperlipidemia Current Visit: Yes Status: Chronic Assessment and plan: continue statin therapy Qualifiers: Hyperlipidemia type: pure hypercholesterolemia Qualified Code(s): E78.00 - Pure hypercholesterolemia, unspecified; E78.0 - Pure hypercholesterolemia (5) Hypertension Current Visit: Yes Status: Chronic Assessment and plan: BP within acceptable range at this time after receiving home medications and Hydralazine 10mg IV will closely monitor Hydralazine 10mg IVP q6h prn SBP>140 Qualifiers: Hypertension type: essential hypertension Qualified Code(s): I10 - Essential (primary) hypertension (6) DVT prophylaxis Current Visit: No Status: Acute Assessment and plan: SCD (7) Hypokalemia Current Visit: Yes Status: Resolved - Subjective Interval history: Pt seen and examined at bedside. REsting in chair, eating breakfast, reports of left hip pain which is improved with pain medications. Patient denies any other discomfort at this time. - Constitutional Vitals: Temp Pulse Resp BP Pulse Ox 98.6 F 58 16 144/74 94 02/15/17 07:27 02/15/17 07:27 02/15/17 07:27 02/15/17 07:27 02/15/17 07:27 General appearance: Present: cooperative, A&O X 3, pleasant, no acute distress, answers questions appropriately - Head Head exam: Present: atraumatic, normocephalic - Eye Eye exam: Present: conjuntiva pink, sclera anicteric - Respiratory Respiratory exam: Present: CTAB. Absent: accessory muscle use, rales, rhonchi, wheezes - Cardiovascular Cardiovascular exam: Present: RRR, +S1, +S2. Absent: diastolic murmur, gallop, rubs, systolic murmur - GI/Abdominal GI/Abdominal exam: Present: normal bowel sounds, soft, no peritoneal signs. Absent: distended, tenderness - Extremities Exam Extremities exam: Present: tenderness (lt hip tenderness), warm, radial pulses palpable and symetrical. Absent: calf tenderness, pedal edema - Neurological Exam Neurological exam: Present: alert, oriented X3 - Psychiatric Psychiatric exam: Present: normal affect, normal mood Internal Medicine: Result - Labs CBC & Chem 7: 02/15/17 00:58 02/15/17 00:58 Labs: Short CBC 02/15/17 Range/Units 00:58 WBC 10.6 (4.3-11.1) K/mcL Hgb 12.2 (11.5-15.4) g/dL Hct 37.2 (35.3-44.9) % Plt Count 197 (140-400) K/mcL Neutrophils # 9.3 H (1.6-8.9) K/mcL BMP 02/15/17 00:58 Sodium 138 Potassium 4.6 H D Chloride 106 Carbon Dioxide 23 BUN 11 Creatinine 0.99 Glucose 138 H Calcium 9.5 - ABG Interpretation ABG results: PT/INR, D-dimer PT 12.3 Seconds (9.4-12.1) H 02/14/17 01:07 - Impressions Impressions Fluoroscopy 02/14/17 00:00 IMPRESSION: Intraprocedural fluoroscopic spot images as above. See separate procedure report for more information. D/ / 02/14/2017 13:24:06 Simon Bird MD / silas Interpreting Provider: Simon Bird MD Hip X-Ray 02/14/17 00:00 IMPRESSION: Intraprocedural fluoroscopic spot images as above. See separate procedure report for more information. D/ / 02/14/2017 13:24:06 Simon Bird MD / silas Interpreting Provider: Simon Bird MD - VTE Documentation of Mechanical Device: Intermittent pneumatic compression device Consult Discharge Plan - Plan Referrals: Bj Card MD [Primary Care Provider] -
[2017-02-15] MEDS: *HR* Morphine 2 MG/ML SYRINGE IVP PRN ×2 (13:07→20:37)
--- NOTE | 2017-02-15 13:17 | Electrocardiograph Report ---
[address] [place] [address] Test Date: 2017-02-13 Pat Name: Laurie Gallo Department: 103 Room: [facility] Gender: F Legal Support Assistant: : 1940 Requested By: Reji Hurley Order Number: [id number] Reading MD: Bennie Briceño MD Measurements Intervals [place] Rate: 98 P: 54 CA: 144 QRS: 3 QRSD: 98 T: 53 QT: 326 QTc: 381 Interpretive Statements SINUS RHYTHM LEFT ATRIAL ENLARGEMENT POSSIBLE INFERIOR MYOCARDIAL INFARCTION, PROBABLY OLD Electronically Signed On 02-15-2017 13:16:30 EDT by Bennie Briceño MD
[2017-02-15] MEDS: *HR* HYDROcodone/Acet 7.5/325 mg TABLET PO PRN (16:06)
--- NOTE | 2017-02-15 19:05 | Orthopedics Progress Note ---
Date of Encounter: 02/15/17 Time of Encounter: 19:02 Subjective Principal diagnosis: Left femoral neck fracture Interval history: 02/15/2017. She is postop day #1 from cannulated screw fixation of left hip. She is complaining of worse back pain than she had previously. Patient has a history of chronic back pain, previously assumed to be related to her aortic aneurysm. She states the pain is worse, it is more spasmodic in nature. Hip is doing fairly well. Vital signs are stable she is afebrile. Hip dressing is dry without any evidence of spotting or drainage. Neurovascular exam is intact. Hemoglobin is 12. White count normal. I reviewed her CT scan of her lumbar spine. This does not identify any acute fractures of the visualized ribs or spine. She does have spondylosis. Impression: POD #1 cannulated screw fixation left hip Recommendation: Patient's orthopedic status is stable for discharge at any time. Patient can resume all of her preoperative medications including Plavix and aspirin. She can be discharged at your discretion. As always her hip dressing is intact she does not need any incision care and can shower. No bathing or soaking. She is to remain touchdown weightbearing on the left lower extremity. She needs follow-up with me in roughly 3-4 weeks or sooner should any problems arise. Objective Vital signs: Vital Signs Temp Pulse Resp BP Pulse Ox 02/15/17 15:30 98.3 F 81 16 115/64 95 02/15/17 11:16 98.2 F 71 16 137/74 100 02/15/17 09:16 94 02/15/17 07:27 98.6 F 58 16 144/74 94 02/15/17 03:20 97.7 F 78 15 99/61 96 02/14/17 23:01 98.0 F 72 14 107/66 94 Intake and Output 02/15/17 02/15/17 02/15/17 07:59 15:59 23:59 Intake Total 120 / 120 Output Total 1150 / 1150 375 / 375 Balance -1150 / -1150 120 / 120 -375 / -375 Intake: Oral 120 / 120 Output: Urine 100 / 100 375 / 375 Catheter 1050 / 1050 Other: Meal Breakfast Percent of Meal Consumed 100% Weight 59 kg Patient Weight 02/15/17 23:59 Weight 59 kg - Labs CBC & BMP: 02/15/17 00:58 02/15/17 00:58 Labs: Abnormal lab results Neutrophils # 9.3 K/mcL (1.6-8.9) H 02/15/17 00:58 PT 12.3 Seconds (9.4-12.1) H 02/14/17 01:07 APTT 25.8 Seconds (26.0-36.0) L 02/14/17 01:07 Potassium 4.6 mEq/L (3.5-4.5) H D 02/15/17 00:58 Est GFR (Non-Af Amer) 55 (> 60) L 02/15/17 00:58 Glucose 138 mg/dL (70-99) H 02/15/17 00:58 LDL Cholesterol, Calc 105 mg/dL (0-99) H 02/14/17 01:07 - VTE Documentation of Mechanical Device: Intermittent pneumatic compression device Consult Discharge Plan - Plan Referrals: Bj Card MD [Primary Care Provider] -
[2017-02-16] MEDS: *HR* HYDROcodone/Acet 7.5/325 mg TABLET PO PRN ×2 (01:36→08:05)
[2017-02-16] MEDS: *HR* Morphine 2 MG/ML SYRINGE IVP PRN ×2 (02:27→19:51)
[2017-02-16] MEDS: *HR* Enoxaparin 30 MG/0.3 ML SYRINGE SQ SCH ×3 (05:14→18:05)
[2017-02-16] MEDS: *HR* HYDROmorphone (PF) 1 MG/ML SYRINGE IVP PRN (05:14)
[2017-02-16 05:29] LABS: Basophils # 0.1 K/mcL (0.0-0.2); Basophils % 0.7 %; Eosinophils # 0.5 K/mcL (0.0-0.6); Eosinophils % 4.1 %; Hematocrit 35.4 % (35.3-44.9); Hemoglobin 11.6 g/dL (11.5-15.4); Immature Granulocytes % 0.4 % (0-4); Lymphocytes # 3.1 K/mcL (0.6-4.6); Lymphocytes % 27.5 %; Mean Corpuscular HGB Conc 32.8 g/dL (31.6-35.5); Mean Corpuscular Hemoglobin 29.7 pg (28.0-33.3); Mean Corpuscular Volume 90.8 fL (83.0-100.0); Mean Platelet Volume 10.1 fL (9.4-12.4); Monocytes # 0.9 K/mcL (0.0-1.3); Monocytes % 7.9 %; Neutrophils # 6.7 K/mcL (1.6-8.9); Platelet Count 237 K/mcL (140-400); Segmented Neutrophils % 59.4 %
[2017-02-16 05:32] LABS: BUN/Creatinine Ratio 18 (6-26); Blood Urea Nitrogen 14 mg/dL (7-20); Calcium 9.1 mg/dL (8.6-10.8); Carbon Dioxide 28 mEq/L (19-29); Chloride 107 mEq/L (98-109); Glucose 95 mg/dL (70-99); Magnesium 1.7 mg/dL (1.6-2.6); Osmolality,Calculated 292 (280-300); Phosphorous 2.4 mg/dL (2.3-4.7); Potassium 3.8 mEq/L (3.5-4.5); Sodium 141 mEq/L (136-145); eGFR For African Americans > 60 (> 60); eGFR For Non-African Americans > 60 (> 60)
[2017-02-16] MEDS: Pantoprazole 40 MG VIAL IVP SCH (08:04)
[2017-02-16] MEDS: amLODIPine 5 MG TABLET PO SCH (08:05)
[2017-02-16] MEDS: Carbidopa/Levodopa 25/100 TABLET PO SCH ×3 (08:05→21:40)
--- NOTE | 2017-02-16 08:34 | Discharge Summary ---
Date of Encounter: 02/16/17 Time of Encounter: 08:31 - Discharge Diagnosis (1) Closed left femoral fracture Priority: Primary Status: Acute Qualifiers: Encounter type: initial encounter Femur location: neck Qualified Code(s) : S72.002A - Fracture of unspecified part of neck of left femur, initial encounter for closed fracture (2) CAD (coronary artery disease) Priority: Secondary Status: Chronic Qualifiers: Coronary Disease-Associated Artery/Lesion type: [place] artery [place] vs. 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 (4) Hyperlipidemia Priority: Secondary Status: Chronic Qualifiers: Hyperlipidemia type: pure hypercholesterolemia Qualified Code(s): E78.00 - Pure hypercholesterolemia, unspecified; E78.0 - Pure hypercholesterolemia (5) Hypertension Priority: Secondary Status: Chronic Qualifiers: Hypertension type: essential hypertension Qualified Code(s): I10 - Essential (primary) hypertension (6) DVT prophylaxis Priority: Secondary Status: Acute (7) Hypokalemia Priority: Secondary Status: Resolved - Discharge Medications Prescriptions: ALPRAZolam [Xanax 0.5 MG Tablet] 0.5 mg PO BID PRN #20 PRN Reason: Anxiety Aspirin 325 mg PO DAILY #28 tablet HYDROcodone/Acet 10/325 mg [[place] 10-325 mg] 1 each PO Q4H PRN #20 tab PRN Reason: Severe Pain Sennosides/Docusate Sodium [Senna Plus] 2 each PO BID PRN #20 tab PRN Reason: Constipation Home Medications: Carbidopa/Levodopa [Carbidopa-Levodopa 25-100 Tab] 1 tab PO TID 03/09/16 [ History] Albuterol Sulfate [Albuterol Inhaler] 2 puff IH Q4HR PRN 01/05/17 [History] Clopidogrel [Plavix] 75 mg PO DAILY 01/05/17 [History] DULoxetine [Cymbalta] 30 mg PO DAILY 01/05/17 [History] Metoprolol [Lopressor] 12.5 mg PO BID 01/05/17 [History] Pantoprazole Sodium [Protonix] 40 mg PO DAILY 02/13/17 [History] amLODIPine [Norvasc] 5 mg PO DAILY 02/13/17 [History] ALPRAZolam [Xanax 0.5 MG Tablet] 0.5 mg PO BID PRN #20 02/16/17 [Rx] Aspirin 325 mg PO DAILY #28 tablet 02/16/17 [Rx] HYDROcodone/Acet 10/325 mg [[place] 10-325 mg] 1 each PO Q4H PRN #20 tab 02/16/17 [Rx] Sennosides/Docusate Sodium [Senna Plus] 2 each PO BID PRN #20 tab 02/16/17 [Rx] Allergies/Adverse Reactions: Allergies No Known Allergies Allergy (Verified 03/09/16 15:13) Date of admission: 02/13/17 09:00 Primary care physician: Bj Card MD Consults: 02/13/17 10:46 Consult to Cardiology [CONS] Routine Comment: Consulting Provider: Jason Jimenez Reason for Consult: Clearance for surgery. Patient has hx of AAA repair and states she has a hernia near her heart that she was to be seen at [facility] next Wednesday for. Patient reports she sees Dr. Ponce for cardiology. Call Completed: Yes 02/13/17 10:48 Consult to [employer] Up Worker [CONS] Routine Reason for SW Consult: Patient suffered fall resulting in fracture that will require surgery. Will need rehabilitation services post-discharge. 02/13/17 10:56 PT [Consult to Physical Therapy] [CONS] Routine Comment: Evaluate, develop and implement POC Reason for Consult: Patient suffered fall resulting in fracture that will require surgery. Will need rehabilitation. 02/13/17 10:57 OT [Consult to Occupational Therapy] [CONS] Routine Comment: Evaluate, develop and implement POC Reason for Consult: Patient suffered fall resulting in fracture that will require surgery. Will need rehabilitation. 02/13/17 16:35 Consult to Vascular Surgery [CONS] Routine Consulting Provider: Vascular Surgery Barbara Reason for Consult: Cardiology suggests vascular surgery consult for surgical clearance due to patient having a 5.6 cm aneurysm on the descending aorta Call Completed: Yes Discharging clinician: Mindy Chen Anticipated date of discharge: 02/16/17 - Patient Status Disposition: Transfer SNF Condition: Good Functional capacity at discharge: uses cane/walker Overall status at discharge: patient is progressing back to baseline - Discharge Instructions Follow Up With: Bj Card MD [Primary Care Provider] - Additional Instructions: Please follow up with your primary care physician within five days after your discharge from the hospital. Please follow up with orthopedic surgery within 3-4 weeks after discharge. Aspirin 325mg has been added to your home medications for DVT prophylaxis. Please take this medication as prescribed for four weeks and start Aspirin 81mg once a day there after. Please inform your primary care physician about this addition. Please resume all your other home medications prescribed by your primary care physician. - Diet and Activity Activity: as per physical therapy Diet: low fat, low cholesterol, low salt diet Hospital course: Ms. Gallo is a 76 year old female with PMH of CAD, HTN, HLD, large descending thoracic aortic aneurysm who was admitted for management of left femoral neck fracture s/p mechanical fall. Patient was seen by orthopedic surgery and underwent surgical repair. She tolerated the procedure without any post-op complications. She was seen by cardiology and vascular surgery prior to surgery for clearance. Given her history, ASA was added to her home medications. Patient was evaluated by physical therapy and ECF was recommended. Patient is hemodynamically stable and cleared for discharge from ortho stand point. She will be discharged to ECF once placement in arranged. Pt demonstrates understanding of her diagnosis and agrees with discharge care and plan. \ As per ortho, Aspirin 325mg once a day in addition to Plavix 75mg once a day is appropriate for DVT prophylaxis after discharge. - Time Spent with Patient Total time spent providing and/or coordinating discharge services: Less than 30 minutes - Constitutional Vitals: Temp Pulse Resp BP Pulse Ox 97.9 F 66 16 147/69 96 02/16/17 06:41 02/16/17 06:41 02/16/17 06:41 02/16/17 06:41 02/16/17 08:22 General appearance: Present: cooperative, A&O X 3, pleasant, no acute distress, answers questions appropriately - Head Head exam: Present: atraumatic, normocephalic - Respiratory Respiratory exam: Present: CTAB. Absent: accessory muscle use, rales, rhonchi, wheezes - Cardiovascular Cardiovascular exam: Present: RRR, +S1, +S2. Absent: diastolic murmur, gallop, rubs, systolic murmur - GI/Abdominal GI/Abdominal exam: Present: normal bowel sounds, soft, no peritoneal signs. Absent: distended, tenderness - Extremities Exam Extremities exam: Present: warm, radial pulses palpable and symetrical. Absent : calf tenderness, pedal edema - Neurological Exam Neurological exam: Present: alert, oriented X3 - Psychiatric Psychiatric exam: Present: normal affect, normal mood - VTE Documentation of Mechanical Device: Intermittent pneumatic compression device
--- NOTE | 2017-02-16 08:44 | Physician Discharge Referral ---
ExtendedCare Referral Info Transfer To: F Provider in Charge after Transfer: PCP - Diagnosis (1) Closed left femoral fracture Priority: Primary Status: Acute (2) CAD (coronary artery disease) Priority: Secondary Status: Chronic (3) Descending thoracic aortic aneurysm Priority: Secondary Status: Chronic (4) Hyperlipidemia Priority: Secondary Status: Chronic (5) Hypertension Priority: Secondary Status: Chronic (6) DVT prophylaxis Priority: Secondary Status: Acute (7) Hypokalemia Priority: Secondary Status: Resolved - Transfer Medications Prescriptions: ALPRAZolam [Xanax 0.5 MG Tablet] 0.5 mg PO BID PRN #20 PRN Reason: Anxiety Aspirin 325 mg PO DAILY #28 tablet HYDROcodone/Acet 10/325 mg [[place] 10-325 mg] 1 each PO Q4H PRN #20 tab PRN Reason: Severe Pain Sennosides/Docusate Sodium [Senna Plus] 2 each PO BID PRN #20 tab PRN Reason: Constipation Home Medications: Carbidopa/Levodopa [Carbidopa-Levodopa 25-100 Tab] 1 tab PO TID 03/09/16 [ History] Albuterol Sulfate [Albuterol Inhaler] 2 puff IH Q4HR PRN 01/05/17 [History] Clopidogrel [Plavix] 75 mg PO DAILY 01/05/17 [History] DULoxetine [Cymbalta] 30 mg PO DAILY 01/05/17 [History] Metoprolol [Lopressor] 12.5 mg PO BID 01/05/17 [History] Pantoprazole Sodium [Protonix] 40 mg PO DAILY 02/13/17 [History] amLODIPine [Norvasc] 5 mg PO DAILY 02/13/17 [History] ALPRAZolam [Xanax 0.5 MG Tablet] 0.5 mg PO BID PRN #20 02/16/17 [Rx] Aspirin 325 mg PO DAILY #28 tablet 02/16/17 [Rx] HYDROcodone/Acet 10/325 mg [[place] 10-325 mg] 1 each PO Q4H PRN #20 tab 02/16/17 [Rx] Sennosides/Docusate Sodium [Senna Plus] 2 each PO BID PRN #20 tab 02/16/17 [Rx] Allergies/Adverse Reactions: Allergies No Known Allergies Allergy (Verified 03/09/16 15:13) - Respiratory Orders Smoking Cessation: Smoking cessation has been advised. For more information, call the [place] Tobacco Quit Line at 8-477-CIWT-NOW. - Rehabiliation Orders Other: Please follow up with your primary care physician within five days after your discharge from the hospital. Please follow up with orthopedic surgery within 3-4 weeks after discharge. Aspirin 325mg has been added to your home medications for DVT prophylaxis. Please take this medication as prescribed for four weeks and start Aspirin 81mg once a day there after. Please inform your primary care physician about this addition. Please resume all your other home medications prescribed by your primary care physician. CERTIFICATION: I certify that the transfer of the above named patient to an Extended Care Facility is necessary for the continuing treatment of the diagnosis listed. The above information is true and accurate reflection of patient's current condition. Confidential - Redisclosure prohibited without a patient's written consent.
[2017-02-16] MEDS: ALPRAZolam 0.5 MG TABLET PO PRN (09:43)
[2017-02-16] MEDS: Sennosides/Docusate Sodium TABLET PO SCH ×2 (09:43→21:39)
[2017-02-16] MEDS: Aspirin 81 MG TAB.CHEW PO SCH (09:43)
[2017-02-16] MEDS: *HR* HYDROcodone/Acet 10/325 mg TABLET PO PRN (18:25)
[2017-02-17] MEDS: *HR* Enoxaparin 30 MG/0.3 ML SYRINGE SQ SCH (05:48)
--- NOTE | 2017-02-17 09:24 | Internal Med Progress Note ---
Date of Encounter: 02/17/17 Time of Encounter: 08:25 - Assessment and plan (1) Closed left femoral fracture Current Visit: Yes Status: Acute Assessment and plan: s/p mechanical fall Orthopedic surgery consultation appreciated POD #3 Left femoral neck fracture repair pain control PT/OT evaluation Lovenox SQ for DVT ppx while hospitalized and ASA 325mg PO qdaily after discharged Discharge pending ECF placement Qualifiers: Encounter type: initial encounter Femur location: neck Qualified Code(s) : S72.002A - Fracture of unspecified part of neck of left femur, initial encounter for closed fracture (2) CAD (coronary artery disease) Current Visit: Yes Status: Chronic Assessment and plan: continue ASA, plavix no signs of angina present at this time Qualifiers: Coronary Disease-Associated Artery/Lesion type: [place] artery [place] vs. transplanted heart: [place] heart Associated angina: without angina Qualified Code(s): I25.10 - Atherosclerotic heart disease of [place] coronary artery without angina pectoris (3) Descending thoracic aortic aneurysm Current Visit: Yes Status: Chronic (4) Hyperlipidemia Current Visit: Yes Status: Chronic Assessment and plan: continue statin therapy Qualifiers: Hyperlipidemia type: pure hypercholesterolemia Qualified Code(s): E78.00 - Pure hypercholesterolemia, unspecified; E78.0 - Pure hypercholesterolemia (5) Hypertension Current Visit: Yes Status: Chronic Assessment and plan: BP within acceptable range continue home meds and continue to monitor Hydralazine 10mg IVP q6h prn SBP>140 Qualifiers: Hypertension type: essential hypertension Qualified Code(s): I10 - Essential (primary) hypertension (6) DVT prophylaxis Current Visit: No Status: Acute Assessment and plan: lovenox SQ - Subjective Interval history: Pt seen and examined at bedside. Resting comfortably in bed and reports of better pain control with increase in the PO narcotic dose. States she feels comfortable at this time and denies any discomfort. No overnight issues reported. Patient is discharged to ECF, awaiting authorization from insurance. Will continue to monitor vitals, resume home medications, pain control. - Constitutional Vitals: Temp Pulse Resp BP Pulse Ox 98.2 F 63 18 110/64 98 02/17/17 07:04 02/17/17 07:04 02/17/17 07:04 02/17/17 04:09 02/17/17 07:04 General appearance: Present: cooperative, A&O X 3, pleasant, no acute distress, answers questions appropriately - Head Head exam: Present: atraumatic, normocephalic - Eye Eye exam: Present: conjuntiva pink, sclera anicteric - Respiratory Respiratory exam: Present: CTAB. Absent: accessory muscle use, rales, rhonchi, wheezes - Cardiovascular Cardiovascular exam: Present: RRR, +S1, +S2. Absent: diastolic murmur, gallop, rubs, systolic murmur - GI/Abdominal GI/Abdominal exam: Present: normal bowel sounds, soft, no peritoneal signs. Absent: distended, tenderness - Extremities Exam Extremities exam: Present: warm, radial pulses palpable and symetrical. Absent : calf tenderness, pedal edema - Neurological Exam Neurological exam: Present: alert, oriented X3 - Psychiatric Psychiatric exam: Present: normal affect, normal mood Internal Medicine: Result - Labs CBC & Chem 7: 02/16/17 04:05 02/16/17 04:05 - ABG Interpretation ABG results: PT/INR, D-dimer PT 12.3 Seconds (9.4-12.1) H 02/14/17 01:07 - VTE Documentation of Mechanical Device: Intermittent pneumatic compression device Consult Discharge Plan - Plan Additional Instructions: Please follow up with your primary care physician within five days after your discharge from the hospital. Please follow up with orthopedic surgery within 3-4 weeks after discharge. Aspirin 325mg has been added to your home medications for DVT prophylaxis. Please take this medication as prescribed for four weeks and start Aspirin 81mg once a day there after. Please inform your primary care physician about this addition. Please resume all your other home medications prescribed by your primary care physician. Referrals: Bj Card MD [Primary Care Provider] - Prescriptions: ALPRAZolam [Xanax 0.5 MG Tablet] 0.5 mg PO BID PRN #20 PRN Reason: Anxiety Aspirin 325 mg PO DAILY #28 tablet HYDROcodone/Acet 10/325 mg [[place] 10-325 mg] 1 each PO Q4H PRN #20 tab PRN Reason: Severe Pain Sennosides/Docusate Sodium [Senna Plus] 2 each PO BID PRN #20 tab PRN Reason: Constipation
[2017-02-17] MEDS: Sennosides/Docusate Sodium TABLET PO SCH (09:27)
[2017-02-17] MEDS: Aspirin 81 MG TAB.CHEW PO SCH (09:28)
[2017-02-17] MEDS: Carbidopa/Levodopa 25/100 TABLET PO SCH ×2 (09:28→15:08)
[2017-02-17] MEDS: *HR* HYDROcodone/Acet 10/325 mg TABLET PO PRN ×2 (09:28→15:08)
[2017-02-17] MEDS: amLODIPine 5 MG TABLET PO SCH (09:28)
[2017-02-17] MEDS: Pantoprazole 40 MG VIAL IVP SCH (09:29)
[2017-02-17 12:03] VITALS: BP 105/67
[2017-02-17] MEDS: ALPRAZolam 0.5 MG TABLET PO PRN (15:07)
== END 2017-02-17 16:15 | DRG 482 ==
LOC: EMEROO 04:15 → SUATTDRO 09:00 → 3NENU 09:00
PROVIDERS: ADMIT Internal Medicine; ATTEND Internal Medicine

== ENCOUNTER 2017-10-05 05:35 | Observation (INO) ==
--- NOTE | 2017-10-05 06:25 | Emergency Department Note ---
Disposition Clinical Impression: Intractable abdominal pain Intractable nausea and vomiting Qualifiers: Vomiting type: unspecified Qualified Code(s): R11.2 - Nausea with vomiting, unspecified Disposition: Admitted As Inpatient Condition: Fair Referrals: Bj Card MD [Primary Care Provider] - Forms: ED Satisfaction Letter Time of Disposition: 12:37 Nausea/Vomiting/Diarrhea HPI - General Chief complaint: ED Nausea/Vomiting/Diarrhea Stated complaint: vomiting, SOB Time Seen by Provider: 10/05/17 06:05 Source: patient, EMS Limitations: no limitations Nursing Notes Reviewed: Yes Vital Signs Reviewed: Yes - History of Present Illness HPI Narrative: Alert and oriented nontoxic-appearing 76-year-old female presents for evaluation of nausea, vomiting, loose stools, generalized malaise, and shortness of breath. Symptoms began abruptly at 1800 hrs. yesterday evening. She complains of 2 episodes of vomiting and severe nausea. She denies any diarrhea but does complain of loose stools. She denies any fevers or chills. She denies any chest pain or cough. She denies any urinary symptoms, known sick contacts, or recent foreign travel. She describes her diffuse abdominal pain as cramping in nature. She denies any aggravating or alleviating factors for this abdominal pain Pt Subjective Complaint: nausea, vomiting, abdominal pain, other (Shortness of breath) Onset (ago): hour(s) (1800 hrs. yesterday evening) Number of episodes of emesis: 2 Associated Abdominal Pain: Yes If pain, Location of pain: diffuse Severity: moderate Severity scale (1-10): 4 Quality: cramping Consistency: constant Improves with: nothing Worsens with: nonthing Associated symptoms: Reports: myalgias, loss of appetite, malaise, shortness of breath, weakness (Generalized). Denies: chest pain, cough, fever/chills, dysuria - Related Data Home Medications Medication Instructions Recorded Confirmed Carbidopa/Levodopa 1 tab PO TID 03/09/16 10/05/17 [Carbidopa-Levodopa 25-100 Tab] Albuterol Sulfate [Albuterol 2 puff IH Q4HR PRN 01/05/17 10/05/17 Inhaler] Clopidogrel [Plavix] 75 mg PO DAILY 01/05/17 10/05/17 Metoprolol [Lopressor] 12.5 mg PO BID 01/05/17 10/05/17 Pantoprazole Sodium [Protonix] 40 mg PO DAILY 02/13/17 10/05/17 Hydrocodone/Acetaminophen 1 tab PO TID PRN 10/05/17 10/05/17 [Hydrocodon-Acetaminophen 5-325] Previous Rx's Medication Instructions Recorded ALPRAZolam [Xanax 0.5 MG Tablet] 0.5 mg PO BID PRN #20 02/16/17 Allergies Allergy/AdvReac Type Severity Reaction Status Date / Time No Known Allergies Allergy Verified 10/05/17 07:52 All systems ED: reviewed and negative except as stated. Constitutional: Denies: fever, chills, weakness, weight change Eyes: Denies: eye pain, eye discharge, vision change ENT ED: Denies: ear pain, throat pain, dental pain, hearing loss, epistaxis, congestion, dysphagia Cardiovascular: Denies: chest pain, palpitations, dyspnea on exertion, edema, syncope Respiratory: Reports: as per HPI, dyspnea. Denies: cough, wheezes, hemoptysis, stridor Gastrointestinal: Reports: as per HPI, abdominal pain, nausea, vomiting, other ( Loose stools). Denies: diarrhea, constipation, hematemesis, melena, hematochezia Genitourinary: Denies: dysuria, frequency, hematuria, discharge Musculoskeletal: Denies: back pain, neck pain, arthralgia, myalgia Integumentary: Denies: rash, abrasion, lesions Neurological: Denies: headache, weakness, numbness, paresthesias, confusion, abnormal gait, vertigo Psychiatric: Denies: anxiety, depression, suicidal thoughts, homicidal thoughts , auditory hallucinations, visual hallucinations Endocrine: Denies: fatigue Hematological/Lymphatic: Denies: easy bleeding, easy bruising Allergic/Immunologic: Denies: facial swelling, urticaria Past Medical History - Past Medical History Attestation: Yes The following information was validated with the patient. Source: patient, nursing notes reviewed Medical history: Reports: coronary artery disease, hyperlipidemia, hypertension , myocardial infarction, other Surgical history: Reports: angioplasty/stent, herniorrhaphy, other Psychiatric history: Reports: anxiety, depression - Social History Smoking Status: Never smoker Smokeless Tobacco Status: No Alcohol use: Reports: none Drug use: Reports: none Physical Exam - General Limitations: no limitations General appearance: alert, in no apparent distress - Head Head exam: atraumatic, normocephalic, normal inspection - Eye Eye exam: Present: normal appearance, PERRL, EOMI. Absent: nystagmus - ENT ENT exam: mucous membranes moist - Neck Neck exam: Present: normal inspection, full ROM, trachea midline - Chest Chest inspection: Present: normal inspection, symmetric chest wall rise - Respiratory Respiratory exam: Present: normal lung sounds bilaterally. Absent: respiratory distress, wheezes, stridor, accessory muscle use, prolonged expiratory phase - Cardiovascular Cardiovascular exam: Present: regular rate, normal rhythm, normal heart sounds - Abdominal Exam Abdominal exam: Present: soft, tenderness, normal bowel sounds. Absent: distention, guarding, rebound, rigidity, mass Abdominal tenderness: Present: diffuse, moderate - Extremities Exam Extremities exam: Present: normal inspection, full ROM. Absent: pedal edema - Neurological Exam Neurological exam: Present: alert, oriented X3 - Psychiatric Psychiatric exam: Present: normal affect, normal mood - Skin Skin exam: Present: warm, dry, intact, normal color Course Course Narrative: I spoke with Dr. Alicea of the hospitalist service who accepts the patient for admission. I discussed This patient's case with Dr. Hua as well. Dr. Mora she has had a face-to- face evaluation with patient and agrees with this plan. Vital Signs Temperature 98.4 F 10/05/17 06:05 Pulse Rate 85 10/05/17 06:05 Respiratory Rate 16 10/05/17 06:05 Blood Pressure 155/83 10/05/17 06:05 O2 Sat by Pulse Oximetry 95 10/05/17 06:05 Temperature 98.4 F 10/05/17 06:05 Pulse Rate 78 10/05/17 11:59 Respiratory Rate 16 10/05/17 11:59 Blood Pressure 159/87 10/05/17 11:59 O2 Sat by Pulse Oximetry 95 10/05/17 11:59 Oxygen Delivery Oxygen Delivery Room Air Nausea/Vomiting/Diarrhea - Medical Records Medical records reviewed: Yes I reviewed the patient's medical records. - Lab Data Lab results reviewed: Yes I reviewed the patient's lab results. Lab results narrative: Laboratory Last Values WBC 12.9 K/mcL (4.3-11.1) H 10/05/17 06:45 RBC 4.54 M/mcL (3.82-4.97) 10/05/17 06:45 Hgb 13.3 g/dL (11.5-15.4) 10/05/17 06:45 Hct 41.3 % (35.3-44.9) 10/05/17 06:45 MCV 91.0 fL (83.0-100.0) 10/05/17 06:45 MCH 29.3 pg (28.0-33.3) 10/05/17 06:45 MCHC 32.2 g/dL (31.6-35.5) 10/05/17 06:45 RDW 13.2 % (11.5-14.5) 10/05/17 06:45 Plt Count 214 K/mcL (140-400) 10/05/17 06:45 MPV 9.3 fL (9.4-12.4) L 10/05/17 06:45 Immature Gran % 0.5 % (0-4) 10/05/17 06:45 Seg Neutrophils % 89.4 % 10/05/17 06:45 Lymphocytes % 5.6 % 10/05/17 06:45 Monocytes % 3.7 % 10/05/17 06:45 Eosinophils % 0.5 % 10/05/17 06:45 Basophils % 0.3 % 10/05/17 06:45 Neutrophils # 11.6 K/mcL (1.6-8.9) H 10/05/17 06:45 Lymphocytes # 0.7 K/mcL (0.6-4.6) 10/05/17 06:45 Monocytes # 0.5 K/mcL (0.0-1.3) 10/05/17 06:45 Eosinophils # 0.1 K/mcL (0.0-0.6) 10/05/17 06:45 Basophils # 0.0 K/mcL (0.0-0.2) 10/05/17 06:45 Sodium 139 mEq/L (136-145) 10/05/17 06:45 Potassium 4.5 mEq/L (3.5-5.1) 10/05/17 06:45 Chloride 105 mEq/L (98-107) 10/05/17 06:45 Carbon Dioxide 26 mEq/L (23-29) 10/05/17 06:45 BUN 17 mg/dL (8-23) 10/05/17 06:45 Creatinine 0.83 mg/dL (0.60-1.20) 10/05/17 06:45 Est GFR ( Amer) > 60 (> 60) 10/05/17 06:45 Est GFR (Non-Af Amer) > 60 (> 60) 10/05/17 06:45 BUN/Creatinine Ratio 20 (6-26) 10/05/17 06:45 Glucose 126 mg/dL (70-105) H 10/05/17 06:45 Calculated Osmolality 291 (280-300) 10/05/17 06:45 Calcium 9.4 mg/dL (8.6-10.3) 10/05/17 06:45 Total Bilirubin 0.8 mg/dL (0.3-1.0) 10/05/17 06:45 AST 13 Units/L (13-39) 10/05/17 06:45 ALT 8 Units/L (7-52) 10/05/17 06:45 Alkaline Phosphatase 60 Units/L (34-104) 10/05/17 06:45 Troponin I < 0.03 ng/mL (< 0.04) 10/05/17 06:45 Serum Total Protein 7.0 g/dL (6.4-8.9) 10/05/17 06:45 Albumin 4.1 g/dL (3.5-5.7) 10/05/17 06:45 Globulin 2.9 g/dL (2.4-3.5) 10/05/17 06:45 Albumin/Globulin Ratio 1.4 (1.1-2.2) 10/05/17 06:45 Lipase 19 Units/L (11-82) 03 06:45 Urine Color Yellow (Yellow) 10/05/17 06:30 Urine Clarity Cloudy (Clear) A 10/05/17 06:30 Urine pH 6.0 pH Units (5.0-8.0) 10/05/17 06:30 Ur Specific [place] 1.027 (1.010-1.025) H 10/05/17 06:30 Urine Protein Trace mg/dL (Neg-Trace) 10/05/17 06:30 Urine Glucose (UA) Normal mg/dL (Normal) 10/05/17 06:30 Urine Ketones Trace mg/dL (Negative) H 10/05/17 06:30 Urine Blood Small (Negative) H 10/05/17 06:30 Urine Nitrite Negative (Negative) 10/05/17 06:30 Urine Bilirubin Negative (Negative) 10/05/17 06:30 Urine Urobilinogen Normal mg/dL (Normal) 10/05/17 06:30 Ur Leukocyte Esterase Moderate (Negative) H 10/05/17 06:30 Urine Microscopic RBC 5-15 per hpf (0-3) H 10/05/17 06:30 Urine Microscopic WBC 15-30 per hpf (0-3) H 10/05/17 06:30 Ur Squamous Epith Cells Many per lpf (None-Few) H 10/05/17 06:30 Urine Bacteria None Seen per hpf (None-Few) 10/05/17 06:30 Hyaline Casts None Seen per lpf (None-Few) 10/05/17 06:30 Ur Culture Indicated? NO. (NO) 10/05/17 06:30 Result diagrams: 10/05/17 06:45 10/05/17 06:45 Lab Results 10/05/17 10/05/17 10/05/17 Range/Units 06:30 06:45 06:45 WBC 12.9 H (4.3-11.1) K/mcL RBC 4.54 (3.82-4.97) M/mcL Hgb 13.3 (11.5-15.4) g/dL Hct 41.3 (35.3-44.9) % MCV 91.0 (83.0-100.0) fL MCH 29.3 (28.0-33.3) pg MCHC 32.2 (31.6-35.5) g/dL RDW 13.2 (11.5-14.5) % Plt Count 214 (140-400) K/mcL MPV 9.3 L (9.4-12.4) fL Immature Gran % 0.5 (0-4) % Seg Neutrophils % 89.4 % Lymphocytes % 5.6 % Monocytes % 3.7 % Eosinophils % 0.5 % Basophils % 0.3 % Neutrophils # 11.6 H (1.6-8.9) K/mcL Lymphocytes # 0.7 (0.6-4.6) K/mcL Monocytes # 0.5 (0.0-1.3) K/mcL Eosinophils # 0.1 (0.0-0.6) K/mcL Basophils # 0.0 (0.0-0.2) K/mcL Sodium 139 (136-145) mEq/L Potassium 4.5 (3.5-5.1) mEq/L Chloride 105 (98-107) mEq/L Carbon Dioxide 26 (23-29) mEq/L BUN 17 (8-23) mg/dL Creatinine 0.83 (0.60-1.20) mg/dL Est GFR ( Amer) > 60 (> 60) Est GFR (Non-Af Amer) > 60 (> 60) BUN/Creatinine Ratio 20 (6-26) Glucose 126 H (70-105) mg/dL Calculated Osmolality 291 (280-300) Lactic Acid (0.5-2.2) mmol/L Calcium 9.4 (8.6-10.3) mg/dL Total Bilirubin 0.8 (0.3-1.0) mg/dL AST 13 (13-39) Units/L ALT 8 (7-52) Units/L Alkaline Phosphatase 60 (34-104) Units/L Troponin I (< 0.04) ng/mL Serum Total Protein 7.0 (6.4-8.9) g/dL Albumin 4.1 (3.5-5.7) g/dL Globulin 2.9 (2.4-3.5) g/dL Albumin/Globulin Ratio 1.4 (1.1-2.2) Lipase 19 (11-82) Units/L Urine Color Yellow (Yellow) Urine Clarity Cloudy A (Clear) Urine pH 6.0 (5.0-8.0) pH Units Ur Specific [place] 1.027 H (1.010-1.025) Urine Protein Trace (Neg-Trace) mg/dL Urine Glucose (UA) Normal (Normal) mg/dL Urine Ketones Trace H (Negative) mg/dL Urine Blood Small H (Negative) Urine Nitrite Negative (Negative) Urine Bilirubin Negative (Negative) Urine Urobilinogen Normal (Normal) mg/dL Ur Leukocyte Esterase Moderate H (Negative) Urine Microscopic RBC 5-15 H (0-3) per hpf Urine Microscopic WBC 15-30 H (0-3) per hpf Ur Squamous Epith Cells Many H (None-Few) per lpf Urine Bacteria None Seen (None-Few) per hpf Hyaline Casts None Seen (None-Few) per lpf Ur Culture Indicated? NO. (NO) 10/05/17 10/05/17 Range/Units 06:45 10:38 WBC (4.3-11.1) K/mcL RBC (3.82-4.97) M/mcL Hgb (11.5-15.4) g/dL Hct (35.3-44.9) % MCV (83.0-100.0) fL MCH (28.0-33.3) pg MCHC (31.6-35.5) g/dL RDW (11.5-14.5) % Plt Count (140-400) K/mcL MPV (9.4-12.4) fL Immature Gran % (0-4) % Seg Neutrophils % % Lymphocytes % % Monocytes % % Eosinophils % % Basophils % % Neutrophils # (1.6-8.9) K/mcL Lymphocytes # (0.6-4.6) K/mcL Monocytes # (0.0-1.3) K/mcL Eosinophils # (0.0-0.6) K/mcL Basophils # (0.0-0.2) K/mcL Sodium (136-145) mEq/L Potassium (3.5-5.1) mEq/L Chloride (98-107) mEq/L Carbon Dioxide (23-29) mEq/L BUN (8-23) mg/dL Creatinine (0.60-1.20) mg/dL Est GFR ( Amer) (> 60) Est GFR (Non-Af Amer) (> 60) BUN/Creatinine Ratio (6-26) Glucose (70-105) mg/dL Calculated Osmolality (280-300) Lactic Acid 1.1 (0.5-2.2) mmol/L Calcium (8.6-10.3) mg/dL Total Bilirubin (0.3-1.0) mg/dL AST (13-39) Units/L ALT (7-52) Units/L Alkaline Phosphatase (34-104) Units/L Troponin I < 0.03 (< 0.04) ng/mL Serum Total Protein (6.4-8.9) g/dL Albumin (3.5-5.7) g/dL Globulin (2.4-3.5) g/dL Albumin/Globulin Ratio (1.1-2.2) Lipase (11-82) Units/L Urine Color (Yellow) Urine Clarity (Clear) Urine pH (5.0-8.0) pH Units Ur Specific [place] (1.010-1.025) Urine Protein (Neg-Trace) mg/dL Urine Glucose (UA) (Normal) mg/dL Urine Ketones (Negative) mg/dL Urine Blood (Negative) Urine Nitrite (Negative) Urine Bilirubin (Negative) Urine Urobilinogen (Normal) mg/dL Ur Leukocyte Esterase (Negative) Urine Microscopic RBC (0-3) per hpf Urine Microscopic WBC (0-3) per hpf Ur Squamous Epith Cells (None-Few) per lpf Urine Bacteria (None-Few) per hpf Hyaline Casts (None-Few) per lpf Ur Culture Indicated? (NO) - Radiology Data Radiology results reviewed: Yes I reviewed the patient's radiology results. Chest X-Ray 10/05/17 06:14 IMPRESSION: Large hiatal hernia with left basilar atelectasis, unchanged. 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 D/ / Jean Grover MD / Jean Grover MD Interpreting Provider: Jean Grover MD Abdomen/Pelvis CT 10/05/17 11:00 IMPRESSION: 1. Ventral hernia containing nondilated loops of small bowel. Additionally, there is laxity of the left lateral abdominal wall containing portions of the small bowel and colon. No evidence of bowel obstruction. 2. Large hiatal hernia with nearly the entire stomach within the thorax. 3. Colonic diverticulosis without associated acute inflammatory changes. 4. Cholelithiasis. D/ / 10/05/2017 12:25:38 Manuel Johnson MD / gabriel Interpreting Provider: Manuel Johnson MD Chest CTA 10/05/17 11:00 IMPRESSION: 1. No acute pulmonary artery embolism. 2. Stable descending thoracic aortic aneurysm 5.4 x 5.3 cm. 3. Large hiatal hernia. 4. Right middle lobe, lingular, and left upper lobe chronic appearing atelectasis. D/ 10/05/2017 12:06:50 Leon Dejesus MD / silas Interpreting Provider: Leon Dejesus MD - EKG Data EKG attestation: Yes I reviewed and interpreted this EKG. EKG results narrative: EKG reviewed by Dr. Yariel Baeza as well. EKG shows a sinus rhythm with borderline left axis deviation at a rate of 77 beats per minute. IL interval 137, QRS duration 99, QT/QTc interval 399/430. No ectopy noted. No STEMI. No significant changes when compared to an EKG dated from 02/13/17.
[2017-10-05 06:51] LABS: Bilirubin,Urine Negative (Negative); Blood,Urine Small (Negative); Clarity,Urine Cloudy (Clear); Color,Urine Yellow (Yellow); Glucose,Urine (UA) Normal (Normal); Ketones,Urine Trace mg/dL (Negative); Leukocyte Esterase,Urine Moderate (Negative); Nitrite,Urine Negative (Negative); Protein,Urine Trace mg/dL (Neg-Trace); Specific Gravity,Urine 1.027 (1.010-1.025); Urobilinogen,Urine Normal (Normal)
[2017-10-05 06:53] LABS: Bacteria,Urine None Seen per hpf (None-Few); Hyaline Casts,Urine None Seen per lpf (None-Few); Squamous Epithelial Cell,Urine Many per lpf (None-Few); WBC,Urine 15-30 per hpf (0-3)
[2017-10-05] MEDS ORDERED: 0.9 % Sodium Chloride 500 ML IVC ONE (07:16)
[2017-10-05] MEDS ORDERED: Ondansetron 4 MG/2 ML VIAL IVP ONE ×2 (07:16→08:54)
[2017-10-05 07:23] LABS: Alanine Aminotransferase 8 Units/L (7-52); Albumin 4.1 g/dL (3.5-5.7); Albumin/Globulin Ratio 1.4 (1.1-2.2); Alkaline Phosphatase 60 Units/L (34-104); Aspartate Amino Transferase 13 Units/L (13-39); BUN/Creatinine Ratio 20 (6-26); Bilirubin,Total 0.8 mg/dL (0.3-1.0); Blood Urea Nitrogen 17 mg/dL (8-23); Calcium 9.4 mg/dL (8.6-10.3); Carbon Dioxide 26 mEq/L (23-29); Chloride 105 mEq/L (98-107); Globulin 2.9 g/dL (2.4-3.5); Glucose 126 mg/dL (70-105); Lipase 19 Units/L (11-82); Osmolality,Calculated 291 (280-300); Potassium 4.5 mEq/L (3.5-5.1); Sodium 139 mEq/L (136-145); eGFR For African Americans > 60 (> 60); eGFR For Non-African Americans > 60 (> 60)
[2017-10-05 07:47] LABS: Basophils % 0.3 %; Eosinophils # 0.1 K/mcL (0.0-0.6); Eosinophils % 0.5 %; Hematocrit 41.3 % (35.3-44.9); Hemoglobin 13.3 g/dL (11.5-15.4); Immature Granulocytes % 0.5 % (0-4); Lymphocytes # 0.7 K/mcL (0.6-4.6); Lymphocytes % 5.6 %; Mean Corpuscular HGB Conc 32.2 g/dL (31.6-35.5); Mean Corpuscular Hemoglobin 29.3 pg (28.0-33.3); Mean Platelet Volume 9.3 fL (9.4-12.4); Monocytes # 0.5 K/mcL (0.0-1.3); Monocytes % 3.7 %; Neutrophils # 11.6 K/mcL (1.6-8.9); Platelet Count 214 K/mcL (140-400); Red Blood Count 4.54 M/mcL (3.82-4.97); Red Cell Distribution Width 13.2 % (11.5-14.5); Segmented Neutrophils % 89.4 %
[2017-10-05] MEDS ORDERED: *HR* FentaNYL (PF) 100 MCG/2 ML VIAL IVP ONE ×2 (08:54→12:05)
--- NOTE | 2017-10-05 16:29 | Internal Med History&Physical ---
Date of Encounter: 10/05/17 Time of Encounter: 16:23 Assessment and Plan (1) Acute exacerbation of chronic low back pain Current visit: Yes Status: Acute Patient currently most concern is back pain. This is in the right lower lumbar region and is tender to palpation. Seems like musculoskelatal strain. Will try flexeril once as patient will monitor cautiously to avoid over sedation effect. Will also try lidocaine patch. (2) Intractable nausea and vomiting Current visit: Yes Status: Acute Patient currently denies any nausea or vomiting. Will place prn Zofran and protonix. Qualifiers: Vomiting type: unspecified Qualified Code(s): R11.2 - Nausea with vomiting , unspecified (3) Abdominal pain Current visit: No Status: Acute She denies abdominal pain for me at this time. She does have large hiatal hernia seen on CT abdomen/pelvis as well as ventral hernia containing nondilated loops of small bowel. There is no bowel obstruction. Lactic acid is within normal limits and my abdominal exam is benign. If patient stomach pain returns would consider Surgery consult. Will place oxy 5 mg Q6H prn abdominal pain Qualifiers: Abdominal location: generalized Qualified Code(s): R10.84 - Generalized abdominal pain (4) CAD (coronary artery disease) Current visit: No Status: Chronic Qualifiers: Coronary Disease-Associated Artery/Lesion type: [place] artery [place] vs. transplanted heart: [place] heart Associated angina: without angina Qualified Code(s): I25.10 - Atherosclerotic heart disease of [place] coronary artery without angina pectoris (5) Descending thoracic aortic aneurysm Current visit: No Status: Chronic (6) Hyperlipidemia Current visit: No Status: Chronic Qualifiers: Hyperlipidemia type: pure hypercholesterolemia Qualified Code(s): E78.00 - Pure hypercholesterolemia, unspecified; E78.0 - Pure hypercholesterolemia (7) Hypertension Current visit: No Status: Chronic Qualifiers: Hypertension type: essential hypertension Qualified Code(s): I10 - Essential (primary) hypertension (8) Parkinson disease Current visit: No Status: Chronic (9) DVT prophylaxis Current visit: No Status: Acute heparin sq 5,000 units BID Internal Medicine - H&P: HPI History of present illness: Ms. Gallo is a 76 year old female with history of CAD, hyperlipidemia, HTN, NE presented for onset of lower back pain and reported abdominal pain. She has history of herniorrhaphy in the past. Patient states that all of the sudden she had an acute onset of right-sided lower back pain. There was no recent history of abnormal movements or trauma. She denies fevers/chills, n/v, diarrhea/constipation, change in food. She states she is having decreased appetite from back pain. In the emergency department, she was reported to complain of abdominal pain with intractable n/v. She was given Fentanyl 25 mg x2, Zofran, and 500 ml normal saline bolus. A chest CTA showed no PE. She does have a known stable decending TAA that was seen at 5.4 cm, large hiatal hernia. A CT of abdomen and pelvis noted that the hiatal hernia is large and most of the stomach is in the thoracic cavity, cholelithiasis without mention of dilated bowel duct. There was mention of large ventral hernia containing multiple loops of small bowel. She denies abdominal, n/v to me at this time. Past Med Surg Social Fam HX - Past Medical History Medical history: coronary artery disease, hyperlipidemia, hypertension, myocardial infarction, other Psychiatric history: anxiety, depression - Past Surgical History Surgical History: angioplasty/stent, herniorrhaphy, other - Social History Smoking Status: Never smoker Smokeless Tobacco Status: No Alcohol use: none Drug use: none - Family History Mother Family Member Ethnicity: Non- Living Status: Hx Family Respiratory Disorders: Yes (Emphysema) Father Family Member Ethnicity: Non- Living Status: Hx Family Cardiac Disorders: Yes (HD) Hx Family Respiratory Disorders: Yes Hx Family Neurologic Disorders: Yes (Dementia) Internal Medicine - H&P: Meds Carbidopa/Levodopa [Carbidopa-Levodopa 25-100 Tab] 1 tab PO TID 03/09/16 [ History] Albuterol Sulfate [Albuterol Inhaler] 2 puff IH Q4HR PRN 01/05/17 [History] Clopidogrel [Plavix] 75 mg PO DAILY 01/05/17 [History] Metoprolol [Lopressor] 12.5 mg PO BID 01/05/17 [History] Pantoprazole Sodium [Protonix] 40 mg PO DAILY 02/13/17 [History] ALPRAZolam [Xanax 0.5 MG Tablet] 0.5 mg PO BID PRN #20 02/16/17 [Rx] Hydrocodone/Acetaminophen [Hydrocodon-Acetaminophen 5-325] 1 tab PO TID PRN [History] 3 Allergy/AdvReac Type Severity Reaction Status Date / Time No Known Allergies Allergy Verified 10/05/17 07:52 All Systems PM: A 10-system review of systems was performed and is negative for pertinent findings except as documented above in the HPI. - Constitutional Constitutional: weakness, no chills, no excessive sweating, no fatigue, no fever (s), no lethargy, no night sweats - Cardiovascular Cardiovascular ROS IM: no chest pain, no claudication, no diaphoresis, no dyspnea - Respiratory Respiratory: no cough, no dyspnea, no wheezing, no excessive phlegm production - Gastrointestinal Gastrointestinal: abdominal pain (per ED reports), nausea, no vomiting - Genitourinary Genitourinary: no change in urinary stream, no dysuria, no flank pain, no hematuria - Musculoskeletal Musculoskeletal ROS IM: back pain - Integumentary Integumentary IM: no rash, no unusual bruising - Neurological Neurological ROS: no confusion, no convulsions, no focal weakness, no numbness, no tingling, no tremor(s) - Constitutional Vitals: Temp Pulse Resp BP Pulse Ox 98.9 F 86 15 119/59 90 10/05/17 14:29 10/05/17 14:29 10/05/17 14:31 10/05/17 14:31 10/05/17 14:29 - Head Head exam: Present: atraumatic, normocephalic - Eye Eye exam: Present: PERRL, conjuntiva pink, sclera anicteric Pupils: Present: PERRL - Neck Neck exam general surgery: Present: supple, trachea midline. Absent: lymphadenopathy - Respiratory Respiratory exam: Present: CTAB. Absent: accessory muscle use, rales, rhonchi, wheezes - Cardiovascular Cardiovascular exam: Present: RRR, +S1, +S2. Absent: diastolic murmur, gallop, rubs, systolic murmur - GI/Abdominal GI/Abdominal exam: Present: normal bowel sounds, soft, no peritoneal signs. Absent: distended, tenderness - Extremities Exam Extremities exam: Present: warm, radial pulses palpable and symmetrical. Absent : calf tenderness, cyanotic, pedal edema - Back Exam Back exam: Present: tenderness - Neurological Exam Neurological exam: Present: CN II-XII intact, oriented X3, no focal deficits. Absent: pronater drift, facial droop, speech deficit - Skin Skin exam: Present: dry, intact Internal Med - H&P Results - Labs CBC & Chem 7: 10/05/17 06:45 10/05/17 06:45
[2017-10-05] MEDS ORDERED: *HR* HYDROcodone/Acet 5/325 mg TABLET PO PRN (17:01)
[2017-10-05] MEDS ORDERED: Ondansetron 4 MG/2 ML VIAL IVP PRN (17:02)
--- NOTE | 2017-10-05 17:55 | Electrocardiograph Report ---
[place] [id number] Test Date: 2017-10-05 Pat Name: Laurie Gallo Department: 104 Room: 3B65 Gender: F [employer] Specialist: : [id number] Requested By: Darell Clark Order Number: [id number] Reading MD: Nicole Chiang Measurements Intervals [place] Rate: 77 P: 51 [place]: 137 QRS: -23 QRSD: 99 T: 55 QT: 399 QTc: 430 Interpretive Statements SINUS RHYTHM BORDERLINE LEFT AXIS DEVIATION [QRS AXIS < -20] ARTIFACT Electronically Signed On 10-05-2017 17:53:34 EDT by Nicole Chiang
[2017-10-05] MEDS: *HR* Heparin 5,000 UNIT/ML VIAL SQ SCH (17:58)
[2017-10-05] MEDS: OXYCODONE Oral CONC 10 MG/0.5 ML ORAL.SYG SL PRN (17:59)
[2017-10-05] MEDS: Carbidopa/Levodopa 25/100 TABLET PO SCH (20:44)
[2017-10-05] MEDS: ALPRAZolam 0.5 MG TABLET PO PRN (20:44)
[2017-10-06] MEDS: *HR* Heparin 5,000 UNIT/ML VIAL SQ SCH ×2 (06:39→18:09)
[2017-10-06] MEDS: Carbidopa/Levodopa 25/100 TABLET PO SCH ×3 (11:02→21:06)
[2017-10-06] MEDS: OXYCODONE Oral CONC 10 MG/0.5 ML ORAL.SYG SL PRN (11:02)
[2017-10-06] MEDS: ALPRAZolam 0.5 MG TABLET PO PRN ×2 (11:02→21:05)
--- NOTE | 2017-10-06 18:51 | Internal Med Progress Note ---
Date of Encounter: 10/06/17 Time of Encounter: 12:00 - Assessment and plan (1) Acute exacerbation of chronic low back pain Current Visit: Yes Status: Acute Assessment and plan: Patient reports right lower lumbar pain, tender to palpation. She reports that she has not been able to walk at home. Onset of pain on the morning of the when she awakened. She denies any new injury or strain. Most likely musculoskeletal strain, patient was given Flexeril by the admitting physician, but there was no report of improvement or worsening. Patient does not have any weakness in her lower extremities on physical exam. PT/OT evaluations were ordered and pending. Continue lidocaine patch Continue home medications Consider consultation with Dr. Gasca if patient is not better in the morning. (2) Intractable nausea and vomiting Current Visit: Yes Status: Ruled-out Assessment and plan: Patient denies. She states that she did not ever have any nausea or vomiting. Qualifiers: Vomiting type: unspecified Qualified Code(s): R11.2 - Nausea with vomiting , unspecified (3) Abdominal pain Current Visit: No Status: Ruled-out Assessment and plan: Patient adamantly denies abdominal pain, nausea or vomiting at any point. Qualifiers: Abdominal location: generalized Qualified Code(s): R10.84 - Generalized abdominal pain (4) CAD (coronary artery disease) Current Visit: Yes Status: Chronic Assessment and plan: She denies chest pain. Continue Plavix. Qualifiers: Coronary Disease-Associated Artery/Lesion type: [place] artery [place] vs. transplanted heart: [place] heart Associated angina: without angina Qualified Code(s): I25.10 - Atherosclerotic heart disease of [place] coronary artery without angina pectoris (5) Descending thoracic aortic aneurysm Current Visit: Yes Status: Chronic Assessment and plan: Stable. Chest X-Ray 10/05/17 06:14 IMPRESSION: Large hiatal hernia with left basilar atelectasis, unchanged. 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 D/ / Jean Grover MD / Jean Grover MD Interpreting Provider: Jean Grover MD Chest CTA 10/05/17 11:00 IMPRESSION: 1. No acute pulmonary artery embolism. 2. Stable descending thoracic aortic aneurysm 5.4 x 5.3 cm. 3. Large hiatal hernia. 4. Right middle lobe, lingular, and left upper lobe chronic appearing atelectasis. D/ / 10/05/2017 12:06:50 Leon Dejesus MD / sials Interpreting Provider: Leon Dejesus MD (6) Hyperlipidemia Current Visit: Yes Status: Chronic Assessment and plan: Chronic. Continue home medications. Qualifiers: Hyperlipidemia type: pure hypercholesterolemia Qualified Code(s): E78.00 - Pure hypercholesterolemia, unspecified; E78.0 - Pure hypercholesterolemia (7) Hypertension Current Visit: Yes Status: Chronic Assessment and plan: Chronic. Continue home medications. Continue to monitor vital signs. Qualifiers: Hypertension type: essential hypertension Qualified Code(s): I10 - Essential (primary) hypertension (8) Parkinson disease Current Visit: Yes Status: Chronic Assessment and plan: Chronic. Continue carbidopa levodopa. (9) DVT prophylaxis Current Visit: Yes Status: Acute Assessment and plan: Heparin subcutaneous (10) Abdominal hernia Current Visit: Yes Status: Acute Assessment and plan: Multiple hernias. Patient with ventral hernia with nondilated loops of small bowel, laxity left lateral abdominal wall containing portions of the small bowel colon. No evidence of obstruction. Patient has large hiatal hernia with nearly the entire stomach within the thorax. We will discuss chronicity with patient in the morning, consider surgical consultation. Chest X-Ray 10/05/17 06:14 IMPRESSION: Large hiatal hernia with left basilar atelectasis, unchanged. 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 D/ / Jean Grover MD / Jean Grover MD Interpreting Provider: Jean Grover MD Abdomen/Pelvis CT 10/05/17 11:00 IMPRESSION: 1. Ventral hernia containing nondilated loops of small bowel. Additionally, there is laxity of the left lateral abdominal wall containing portions of the small bowel and colon. No evidence of bowel obstruction. 2. Large hiatal hernia with nearly the entire stomach within the thorax. 3. Colonic diverticulosis without associated acute inflammatory changes. 4. Cholelithiasis. D/ / 10/05/2017 12:25:38 Manuel Johnson MD / lgray Interpreting Provider: Manuel Johnson MD Chest CTA 10/05/17 11:00 IMPRESSION: 1. No acute pulmonary artery embolism. 2. Stable descending thoracic aortic aneurysm 5.4 x 5.3 cm. 3. Large hiatal hernia. 4. Right middle lobe, lingular, and left upper lobe chronic appearing atelectasis. D/ / 10/05/2017 12:06:50 Leon Dejesus MD / silas Interpreting Provider: Leon Dejesus MD Qualifiers: Hernia type: ventral Obstruction and gangrene presence: without obstruction or gangrene Qualified Code(s): K43.9 - Ventral hernia without obstruction or gangrene - Time Spent With Patient less than 15 minutes - Subjective Interval history: Patient was seen and assessed at noon at bedside. Patient adamantly denies that she ever had abdominal pain or any nausea and vomiting. She reports that she only has low back pain and denies any known injury. Patient is a very poor historian and is unable to state any names of her physicians or any of her medications. Patient reports that over the last few days she was unable to walk prompted her visit to the emergency department. She reports that she has seen Dr. Gasca in the past, she has seen pain management in the past without any relief. She reports that primary care, as well as Dr. Holley give her her pain medications. - Constitutional Vitals: Temp Pulse Resp BP Pulse Ox 98.8 F 95 15 112/62 93 10/06/17 15:26 10/06/17 15:26 10/06/17 15:26 10/06/17 15:26 10/06/17 15:26 General appearance: Present: cooperative, pleasant, no acute distress, answers questions appropriately - Head Head exam: Present: atraumatic, normal inspection, normocephalic - Eye Eye exam: Present: normal appearance, conjuntiva pink, sclera anicteric - Neck Neck exam general surgery: Present: supple, trachea midline. Absent: lymphadenopathy, tenderness - Respiratory Respiratory exam: Present: CTAB. Absent: accessory muscle use, chest wall tenderness, rales, rhonchi, wheezes - Cardiovascular Cardiovascular exam: Present: RRR, +S1, +S2. Absent: bradycardia, diastolic murmur, gallop, rubs, systolic murmur - GI/Abdominal GI/Abdominal exam: Present: normal bowel sounds, soft. Absent: distended, hepatomegaly, tenderness - Extremities Exam Extremities exam: Present: normal capillary refill, normal inspection, warm, radial pulses palpable and symmetrical. Absent: calf tenderness, cyanotic, pedal edema, tenderness - Neurological Exam Neurological exam: Present: alert, oriented X3, no focal deficits, strengths equal and symetr throughout. Absent: facial droop, speech deficit - Skin Skin exam: Present: dry, intact, normal color, warm. Absent: rash Internal Medicine: Result - Labs CBC & Chem 7: 10/05/17 06:45 10/05/17 06:45 Consult Discharge Plan - Plan Referrals: Bj Card MD [Primary Care Provider] -
[2017-10-07 04:25] LABS: Basophils % 0.4 %; Eosinophils # 0.2 K/mcL (0.0-0.6); Eosinophils % 2.3 %; Hematocrit 36.6 % (35.3-44.9); Immature Granulocytes % 0.9 % (0-4); Lymphocytes # 3.2 K/mcL (0.6-4.6); Lymphocytes % 33.6 %; Mean Corpuscular HGB Conc 32.8 g/dL (31.6-35.5); Mean Corpuscular Hemoglobin 29.9 pg (28.0-33.3); Mean Corpuscular Volume 91.3 fL (83.0-100.0); Mean Platelet Volume 9.9 fL (9.4-12.4); Monocytes # 1.1 K/mcL (0.0-1.3); Monocytes % 11.2 %; Neutrophils # 4.9 K/mcL (1.6-8.9); Nucleated Red Blood Cells 0.2 /100 WBC (0); Platelet Count 194 K/mcL (140-400); Red Blood Count 4.01 M/mcL (3.82-4.97); Red Cell Distribution Width 13.2 % (11.5-14.5); Segmented Neutrophils % 51.6 %
[2017-10-07 04:33] LABS: BUN/Creatinine Ratio 21 (6-26); Blood Urea Nitrogen 19 mg/dL (8-23); Carbon Dioxide 22 mEq/L (23-29); Chloride 110 mEq/L (98-107); Glucose 105 mg/dL (70-105); Osmolality,Calculated 295 (280-300); Potassium 4.6 mEq/L (3.5-5.1); Sodium 141 mEq/L (136-145); eGFR For African Americans > 60 (> 60); eGFR For Non-African Americans 60 (> 60)
[2017-10-07] MEDS: *HR* Heparin 5,000 UNIT/ML VIAL SQ SCH ×2 (06:18→16:00)
[2017-10-07] MEDS: Carbidopa/Levodopa 25/100 TABLET PO SCH ×3 (09:13→20:16)
[2017-10-07] MEDS: OXYCODONE Oral CONC 10 MG/0.5 ML ORAL.SYG SL PRN (13:48)
--- NOTE | 2017-10-07 16:33 | Internal Med Progress Note ---
Date of Encounter: 10/07/17 Time of Encounter: 12:15 - Assessment and plan (1) Acute exacerbation of chronic low back pain Current Visit: Yes Status: Acute Assessment and plan: Patient reports improvement in pain today. Right low back hydraulic press tender to palpation, patient is able to move in the bed and there is no weakness in her extremities. She reports adequate relief with Lidoderm patches. This is most likely musculoskeletal pain due to tenderness with palpation. PT has recommended patient go to SNF for rehabilitation. Patient is resistant, will discuss further with patient and we have enlisted the help of criminal justice social worker. Continue Lidoderm and home medications Continue physical therapy, goal is SNF for rehabilitation. (2) Intractable nausea and vomiting Current Visit: Yes Status: Ruled-out Assessment and plan: Denies Qualifiers: Vomiting type: unspecified Qualified Code(s): R11.2 - Nausea with vomiting , unspecified (3) CAD (coronary artery disease) Current Visit: Yes Status: Chronic Assessment and plan: No chest pain. Continue Plavix. Qualifiers: Coronary Disease-Associated Artery/Lesion type: [place] artery [place] vs. transplanted heart: [place] heart Associated angina: without angina Qualified Code(s): I25.10 - Atherosclerotic heart disease of [place] coronary artery without angina pectoris (4) Descending thoracic aortic aneurysm Current Visit: Yes Status: Chronic Assessment and plan: Stable. Chest X-Ray 10/05/17 06:14 IMPRESSION: Large hiatal hernia with left basilar atelectasis, unchanged. 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 D/ / Jean Grover MD / Jean Grover MD Interpreting Provider: Jean Grover MD Abdomen/Pelvis CT 10/05/17 11:00 IMPRESSION: 1. Ventral hernia containing nondilated loops of small bowel. Additionally, there is laxity of the left lateral abdominal wall containing portions of the small bowel and colon. No evidence of bowel obstruction. 2. Large hiatal hernia with nearly the entire stomach within the thorax. 3. Colonic diverticulosis without associated acute inflammatory changes. 4. Cholelithiasis. D/ / 10/05/2017 12:25:38 Manuel Johnson MD / gabriel Interpreting Provider: Manuel Johnson MD Chest CTA 10/05/17 11:00 IMPRESSION: 1. No acute pulmonary artery embolism. 2. Stable descending thoracic aortic aneurysm 5.4 x 5.3 cm. 3. Large hiatal hernia. 4. Right middle lobe, lingular, and left upper lobe chronic appearing atelectasis. D/ / 10/05/2017 12:06:50 Leon Dejesus MD / silas Interpreting Provider: Leon Dejesus MD (5) Hyperlipidemia Current Visit: Yes Status: Chronic Assessment and plan: Chronic. Continue home medications. Qualifiers: Hyperlipidemia type: pure hypercholesterolemia Qualified Code(s): E78.00 - Pure hypercholesterolemia, unspecified; E78.0 - Pure hypercholesterolemia (6) Hypertension Current Visit: Yes Status: Chronic Assessment and plan: Chronic. Continue medications. Continue to monitor vitals. Qualifiers: Hypertension type: essential hypertension Qualified Code(s): I10 - Essential (primary) hypertension (7) Parkinson disease Current Visit: Yes Status: Chronic Assessment and plan: Chronic. Continue carbidopa and levodopa. Monitor for safety and falls. (8) DVT prophylaxis Current Visit: Yes Status: Acute Assessment and plan: Heparin subcutaneous (9) Abdominal hernia Current Visit: Yes Status: Acute Assessment and plan: Patient with multiple hernias. She states that they are chronic and that she and her PCP are monitoring them. Chest X-Ray 10/05/17 06:14 IMPRESSION: Large hiatal hernia with left basilar atelectasis, unchanged. 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 D/ / Jean Grover MD / Jean Grover MD Interpreting Provider: Jean Grover MD Abdomen/Pelvis CT 10/05/17 11:00 IMPRESSION: 1. Ventral hernia containing nondilated loops of small bowel. Additionally, there is laxity of the left lateral abdominal wall containing portions of the small bowel and colon. No evidence of bowel obstruction. 2. Large hiatal hernia with nearly the entire stomach within the thorax. 3. Colonic diverticulosis without associated acute inflammatory changes. 4. Cholelithiasis. D/ / 10/05/2017 12:25:38 Manuel Johnson MD / gabriel Interpreting Provider: Manuel Johnson MD Chest CTA 10/05/17 11:00 IMPRESSION: 1. No acute pulmonary artery embolism. 2. Stable descending thoracic aortic aneurysm 5.4 x 5.3 cm. 3. Large hiatal hernia. 4. Right middle lobe, lingular, and left upper lobe chronic appearing atelectasis. D/ / 10/05/2017 12:06:50 Leon Dejesus MD / [facility] [email or web address] Interpreting Provider: Leon Dejesus MD Qualifiers: Hernia type: ventral Obstruction and gangrene presence: without obstruction or gangrene Qualified Code(s): K43.9 - Ventral hernia without obstruction or gangrene - Time Spent With Patient less than 15 minutes - Subjective Interval history: Patient was seen and assessed at bedside at 12:15 PM. Today patient states that she feels better and that back pain is improved. Discussed discharge with patient, she states that she feels we have done nothing for her and that she is just lying here. She is requesting [facility] for home. I discussed ECF for rehabilitation, patient cites that her son is 55 years old and lives at home alone, has cerebral palsy and needs her. Patient states that home health is caring for him since she has been in the hospital and he does indeed have services, but she does not want to go to ECF. Physical therapy recommended ECF , we have enlisted the help of criminal justice social worker for discharge planning. She denies any headache, vision changes, dizziness. She continues to deny any abdominal pain or nausea, vomiting, diarrhea. - Constitutional Vitals: Temp Pulse Resp BP Pulse Ox 98.6 F 55 16 129/70 94 10/07/17 10:47 10/07/17 10:47 10/07/17 10:47 10/07/17 10:47 10/07/17 10:47 General appearance: Present: cooperative, pleasant, no acute distress, answers questions appropriately - Head Head exam: Present: atraumatic, normal inspection, normocephalic - Eye Eye exam: Present: normal appearance, conjuntiva pink, sclera anicteric - Neck Neck exam general surgery: Present: supple, trachea midline. Absent: lymphadenopathy, tenderness - Respiratory Respiratory exam: Present: CTAB. Absent: accessory muscle use, chest wall tenderness, rales, respiratory distress, rhonchi, wheezes - Cardiovascular Cardiovascular exam: Present: RRR, +S1, +S2. Absent: diastolic murmur, gallop, rubs, systolic murmur - GI/Abdominal GI/Abdominal exam: Present: normal bowel sounds, soft. Absent: distended, hepatomegaly, tenderness - Extremities Exam Extremities exam: Present: normal capillary refill, normal inspection, warm, radial pulses palpable and symmetrical. Absent: calf tenderness, cyanotic, pedal edema, tenderness - Neurological Exam Neurological exam: Present: alert, oriented X3, no focal deficits. Absent: facial droop, speech deficit - Skin Skin exam: Present: dry, intact, normal color, warm. Absent: rash Internal Medicine: Result - Labs CBC & Chem 7: 10/07/17 03:11 10/07/17 03:11 Labs: Short CBC 10/07/17 Range/Units 03:11 WBC 9.4 (4.3-11.1) K/mcL Hgb 12.0 (11.5-15.4) g/dL Hct 36.6 (35.3-44.9) % Plt Count 194 (140-400) K/mcL Neutrophils # 4.9 (1.6-8.9) K/mcL BMP 10/07/17 03:11 Sodium 141 Potassium 4.6 Chloride 110 H Carbon Dioxide 22 L BUN 19 Creatinine 0.91 Glucose 105 Calcium 9.0 Consult Discharge Plan - Plan Referrals: Bj Card MD [Primary Care Provider] - Keyshawn Brown DO [Partnered Physician] - 10/22/17 10:00 am
[2017-10-08] MEDS: OXYCODONE Oral CONC 10 MG/0.5 ML ORAL.SYG SL PRN ×3 (00:46→21:09)
[2017-10-08] MEDS: *HR* Heparin 5,000 UNIT/ML VIAL SQ SCH ×2 (05:27→17:50)
[2017-10-08] MEDS: ALPRAZolam 0.5 MG TABLET PO PRN ×2 (06:32→21:08)
[2017-10-08] MEDS: Carbidopa/Levodopa 25/100 TABLET PO SCH ×3 (09:43→21:09)
--- NOTE | 2017-10-08 15:24 | Internal Med Progress Note ---
Date of Encounter: 10/08/17 Time of Encounter: 09:25 - Assessment and plan (1) Acute exacerbation of chronic low back pain Current Visit: Yes Status: Acute Assessment and plan: Patient reports right lower lumbar pain, tender to palpation. Patient does not have any weakness in her lower extremities on physical exam. PT recommends that pt have inpt rehab, pt was initially reluctant due to son being at home, but has decided to go to [facility] for rehab. Since it is Wednesday, pt will most likely be here until Wednesday waiting on insurance approval. Pt is aware. Continue lidocaine patch Continue home medications Continue PT (2) CAD (coronary artery disease) Current Visit: Yes Status: Chronic Assessment and plan: Chronic. Pt denies chest pain. Continue Plavix. Qualifiers: Coronary Disease-Associated Artery/Lesion type: [place] artery [place] vs. transplanted heart: [place] heart Associated angina: without angina Qualified Code(s): I25.10 - Atherosclerotic heart disease of [place] coronary artery without angina pectoris (3) Descending thoracic aortic aneurysm Current Visit: Yes Status: Chronic Assessment and plan: Stable. Chest X-Ray 10/05/17 06:14 IMPRESSION: Large hiatal hernia with left basilar atelectasis, unchanged. 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 D/ / Jean Grover MD / Jean Grover MD Interpreting Provider: Jean Grover MD Chest CTA 10/05/17 11:00 IMPRESSION: 1. No acute pulmonary artery embolism. 2. Stable descending thoracic aortic aneurysm 5.4 x 5.3 cm. 3. Large hiatal hernia. 4. Right middle lobe, lingular, and left upper lobe chronic appearing atelectasis. D/ / 10/05/2017 12:06:50 Leon Dejesus MD / silas Interpreting Provider: Leon Dejesus MD (4) Hypertension Current Visit: Yes Status: Chronic Assessment and plan: Chronic. Stable and normotensive. Continue home medications. Continue to monitor vital signs. Qualifiers: Hypertension type: essential hypertension Qualified Code(s): I10 - Essential (primary) hypertension (5) Parkinson disease Current Visit: Yes Status: Chronic Assessment and plan: Chronic. Continue carbidopa levodopa. Monitor for falls and safety. (6) DVT prophylaxis Current Visit: Yes Status: Acute Assessment and plan: Heparin subcutaneous SQ BID. (7) Abdominal hernia Current Visit: Yes Status: Acute Assessment and plan: Multiple hernias. Patient with ventral hernia with nondilated loops of small bowel, laxity left lateral abdominal wall containing portions of the small bowel colon. No evidence of obstruction. Patient has large hiatal hernia with nearly the entire stomach within the thorax. Stable. Pt follows with PCP who is aware and monitoring. Chest X-Ray 10/05/17 06:14 IMPRESSION: Large hiatal hernia with left basilar atelectasis, unchanged. 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 D/ / eJan Grover MD / Jean Grover MD Interpreting Provider: Jean Grover MD Abdomen/Pelvis CT 10/05/17 11:00 IMPRESSION: 1. Ventral hernia containing nondilated loops of small bowel. Additionally, there is laxity of the left lateral abdominal wall containing portions of the small bowel and colon. No evidence of bowel obstruction. 2. Large hiatal hernia with nearly the entire stomach within the thorax. 3. Colonic diverticulosis without associated acute inflammatory changes. 4. Cholelithiasis. D/ / 10/05/2017 12:25:38 Manuel Johnson MD / gabriel Interpreting Provider: Manuel Johnson MD Chest CTA 10/05/17 11:00 IMPRESSION: 1. No acute pulmonary artery embolism. 2. Stable descending thoracic aortic aneurysm 5.4 x 5.3 cm. 3. Large hiatal hernia. 4. Right middle lobe, lingular, and left upper lobe chronic appearing atelectasis. D/ / 10/05/2017 12:06:50 Leon Dejesus MD / silas Interpreting Provider: Leon Dejesus MD Qualifiers: Hernia type: ventral Obstruction and gangrene presence: without obstruction or gangrene Qualified Code(s): K43.9 - Ventral hernia without obstruction or gangrene - Time Spent With Patient less than 15 minutes - Subjective Interval history: Patient was seen and assessed at bedside at 0925 AM. Pt was sleeping, she was drowsy, but arouses easily. Reports continued improvement of back pain. She denies any headache, vision changes, dizziness. She continues to deny any abdominal pain or nausea, vomiting, diarrhea. Pt is agreeable to [facility] for rehab. - Constitutional Vitals: Temp Pulse Resp BP Pulse Ox 97.5 F L 51 16 150/76 95 10/08/17 11:48 10/08/17 11:48 10/08/17 11:48 10/08/17 11:48 10/08/17 11:48 General appearance: Present: cooperative, pleasant, no acute distress, answers questions appropriately - Head Head exam: Present: atraumatic, normal inspection, normocephalic - Eye Eye exam: Present: normal appearance, conjuntiva pink, sclera anicteric - Neck Neck exam general surgery: Present: normal inspection, supple, trachea midline. Absent: lymphadenopathy - Respiratory Respiratory exam: Present: CTAB. Absent: accessory muscle use, chest wall tenderness, rales, respiratory distress, rhonchi, stridor, wheezes - Cardiovascular Cardiovascular exam: Present: RRR, +S1, +S2. Absent: diastolic murmur, gallop, rubs, systolic murmur - GI/Abdominal GI/Abdominal exam: Present: normal bowel sounds, soft. Absent: distended, hepatomegaly, tenderness - Extremities Exam Extremities exam: Present: normal capillary refill, normal inspection, warm, radial pulses palpable and symmetrical. Absent: calf tenderness, cyanotic, joint swelling, pedal edema, tenderness - Neurological Exam Neurological exam: Present: alert, oriented X3, no focal deficits. Absent: facial droop, speech deficit - Skin Skin exam: Present: dry, intact, normal color, warm. Absent: rash Internal Medicine: Result - Labs CBC & Chem 7: 10/07/17 03:11 10/07/17 03:11 Consult Discharge Plan - Plan Referrals: Bj Card MD [Primary Care Provider] - Keyshawn Brown DO [Partnered Physician] - 10/22/17 10:00 am
[2017-10-09] MEDS: ALPRAZolam 0.5 MG TABLET PO PRN ×2 (03:52→16:03)
[2017-10-09] MEDS: *HR* Heparin 5,000 UNIT/ML VIAL SQ SCH ×2 (06:07→18:05)
[2017-10-09] MEDS: Carbidopa/Levodopa 25/100 TABLET PO SCH ×3 (09:38→21:39)
--- NOTE | 2017-10-09 13:02 | Internal Med Progress Note ---
Date of Encounter: 10/09/17 Time of Encounter: 08:30 - Assessment and plan (1) Acute exacerbation of chronic low back pain Current Visit: Yes Status: Acute Assessment and plan: Back pain stable, reports adequate pain control to me. Right lower back painful to palpation. Patient actively participating in PT Patient waiting on ECF placement. Continue home medications Continue PT (2) CAD (coronary artery disease) Current Visit: Yes Status: Chronic Assessment and plan: Chronic. Pt denies chest pain. Continue Plavix. Qualifiers: Coronary Disease-Associated Artery/Lesion type: [place] artery [place] vs. transplanted heart: [place] heart Associated angina: without angina Qualified Code(s): I25.10 - Atherosclerotic heart disease of [place] coronary artery without angina pectoris (3) Descending thoracic aortic aneurysm Current Visit: Yes Status: Chronic Assessment and plan: Stable. Follow up with PCP after discharge. Chest X-Ray 10/05/17 06:14 IMPRESSION: Large hiatal hernia with left basilar atelectasis, unchanged. 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 D/ / Jean Grover MD / Jean Grover MD Interpreting Provider: Jean Grover MD Chest CTA 10/05/17 11:00 IMPRESSION: 1. No acute pulmonary artery embolism. 2. Stable descending thoracic aortic aneurysm 5.4 x 5.3 cm. 3. Large hiatal hernia. 4. Right middle lobe, lingular, and left upper lobe chronic appearing atelectasis. D/ / 10/05/2017 12:06:50 Leon Dejesus MD / silas Interpreting Provider: Leon Dejesus MD (4) Hypertension Current Visit: Yes Status: Chronic Assessment and plan: Chronic. Stable and normotensive. Continue home medications. Continue to monitor vital signs per admission order. Qualifiers: Hypertension type: essential hypertension Qualified Code(s): I10 - Essential (primary) hypertension (5) Parkinson disease Current Visit: Yes Status: Chronic Assessment and plan: Chronic. Continue carbidopa levodopa. Monitor for falls and safety. (6) DVT prophylaxis Current Visit: Yes Status: Acute Assessment and plan: Heparin SQ (7) Abdominal hernia Current Visit: Yes Status: Acute Assessment and plan: No evidence of obstruction, no pain. Patient has large hiatal hernia with nearly the entire stomach within the thorax. Stable. Pt follows with PCP who is aware and monitoring. Chest X-Ray 10/05/17 06:14 IMPRESSION: Large hiatal hernia with left basilar atelectasis, unchanged. 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 D/ / Jean Grover MD / Jean Grover MD Interpreting Provider: Jean Grover MD Abdomen/Pelvis CT 10/05/17 11:00 IMPRESSION: 1. Ventral hernia containing nondilated loops of small bowel. Additionally, there is laxity of the left lateral abdominal wall containing portions of the small bowel and colon. No evidence of bowel obstruction. 2. Large hiatal hernia with nearly the entire stomach within the thorax. 3. Colonic diverticulosis without associated acute inflammatory changes. 4. Cholelithiasis. D/ / 10/05/2017 12:25:38 [facility] Interpreting Provider: Manuel Johnson MD Chest CTA 10/05/17 11:00 IMPRESSION: 1. No acute pulmonary artery embolism. 2. Stable descending thoracic aortic aneurysm 5.4 x 5.3 cm. 3. Large hiatal hernia. 4. Right middle lobe, lingular, and left upper lobe chronic appearing atelectasis. D/ / 10/05/2017 12:06:50 Leon Dejesus MD / silas Interpreting Provider: Leon Dejesus MD Qualifiers: Hernia type: ventral Obstruction and gangrene presence: without obstruction or gangrene Qualified Code(s): K43.9 - Ventral hernia without obstruction or gangrene - Time Spent With Patient less than 15 minutes - Subjective Interval history: Patient was seen and assessed at bedside at 0830 AM. Pt was sleeping, she was drowsy, but arouses easily. Reports that back pain is under control, but had reported to nurses on nightshift that she felt like no one was helping her. She denies any headache, vision changes, dizziness, or chest pain. She continues to deny any abdominal pain or nausea, vomiting, diarrhea. Pt is agreeable to [facility] for rehab. - Constitutional Vitals: Temp Pulse Resp BP Pulse Ox 97.8 F 52 16 143/76 90 10/09/17 12:24 10/09/17 12:24 10/09/17 12:24 10/09/17 12:24 10/09/17 12:24 General appearance: Present: cooperative, A&O X 3, pleasant, no acute distress, answers questions appropriately - Head Head exam: Present: atraumatic, normal inspection, normocephalic - Eye Eye exam: Present: conjuntiva pink, sclera anicteric - Neck Neck exam general surgery: Present: supple, trachea midline. Absent: lymphadenopathy, tenderness - Respiratory Respiratory exam: Present: CTAB. Absent: accessory muscle use, chest wall tenderness, rales, respiratory distress, rhonchi, wheezes - Cardiovascular Cardiovascular exam: Present: RRR, +S1, +S2. Absent: diastolic murmur, gallop, rubs, systolic murmur - GI/Abdominal GI/Abdominal exam: Present: normal bowel sounds, soft, no peritoneal signs. Absent: distended, hepatomegaly, tenderness - Extremities Exam Extremities exam: Present: warm, radial pulses palpable and symmetrical. Absent : calf tenderness, cyanotic, pedal edema - Neurological Exam Neurological exam: Present: alert, oriented X3, no focal deficits. Absent: facial droop, speech deficit - Skin Skin exam: Present: dry, intact, normal color, warm. Absent: rash Internal Medicine: Result - Labs CBC & Chem 7: 10/07/17 03:11 10/07/17 03:11 Consult Discharge Plan - Plan Referrals: Bj Card MD [Primary Care Provider] - Keyshawn Brown DO [Partnered Physician] - 10/22/17 10:00 am
[2017-10-10] MEDS: ALPRAZolam 0.5 MG TABLET PO PRN (04:07)
[2017-10-10] MEDS: *HR* Heparin 5,000 UNIT/ML VIAL SQ SCH ×2 (05:37→18:02)
[2017-10-10] MEDS: Carbidopa/Levodopa 25/100 TABLET PO SCH ×3 (07:51→21:37)
--- NOTE | 2017-10-10 11:35 | Internal Med Progress Note ---
Date of Encounter: 10/10/17 Time of Encounter: 10:20 - Assessment and plan (1) Acute exacerbation of chronic low back pain Current Visit: Yes Status: Acute Assessment and plan: Back pain stable, states that it is "fine." Right lower back painful to palpation, improving. Pt reports relief with lidoderm patch. Patient actively participating in PT Patient waiting on ECF placement. Continue home medications Continue PT (2) CAD (coronary artery disease) Current Visit: Yes Status: Chronic Assessment and plan: Chronic. Pt denies chest pain. Continue Plavix. Qualifiers: Coronary Disease-Associated Artery/Lesion type: [place] artery [place] vs. transplanted heart: [place] heart Associated angina: without angina Qualified Code(s): I25.10 - Atherosclerotic heart disease of [place] coronary artery without angina pectoris (3) Descending thoracic aortic aneurysm Current Visit: Yes Status: Chronic Assessment and plan: Stable. 5.4x 5.3cm. Follow up with PCP/vascular after discharge. Chest X-Ray 10/05/17 06:14 IMPRESSION: Large hiatal hernia with left basilar atelectasis, unchanged. 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 D/ / Jean Grover MD / Jean Grover MD Interpreting Provider: Jean Grover MD Chest CTA 10/05/17 11:00 IMPRESSION: 1. No acute pulmonary artery embolism. 2. Stable descending thoracic aortic aneurysm 5.4 x 5.3 cm. 3. Large hiatal hernia. 4. Right middle lobe, lingular, and left upper lobe chronic appearing atelectasis. D/ / 10/05/2017 12:06:50 Leon Dejesus MD / silas Interpreting Provider: Leon Dejesus MD (4) Hypertension Current Visit: Yes Status: Chronic Assessment and plan: Chronic. Stable and normotensive. Continue home medications. Continue to monitor vital signs per admission order. Qualifiers: Hypertension type: essential hypertension Qualified Code(s): I10 - Essential (primary) hypertension (5) Parkinson disease Current Visit: Yes Status: Chronic Assessment and plan: Chronic. Continue carbidopa levodopa. Monitor for falls and safety, pt is weak, continue PT (6) DVT prophylaxis Current Visit: Yes Status: Acute Assessment and plan: Heparin SQ BID (7) Abdominal hernia Current Visit: Yes Status: Acute Assessment and plan: No evidence of obstruction, no pain. Pt denies diarrhea or constipation. Patient has large hiatal hernia with nearly the entire stomach within the thorax. Stable. Pt follows with PCP who is aware and monitoring. Chest X-Ray 10/05/17 06:14 IMPRESSION: Large hiatal hernia with left basilar atelectasis, unchanged. 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 D/ / Jean Grover MD / Jean Grover MD Interpreting Provider: Jean Grover MD Abdomen/Pelvis CT 10/05/17 11:00 IMPRESSION: 1. Ventral hernia containing nondilated loops of small bowel. Additionally, there is laxity of the left lateral abdominal wall containing portions of the small bowel and colon. No evidence of bowel obstruction. 2. Large hiatal hernia with nearly the entire stomach within the thorax. 3. Colonic diverticulosis without associated acute inflammatory changes. 4. Cholelithiasis. D/ / 10/05/2017 12:25:38 Manuel Johnson MD / g[facility]riel Interpreting Provider: Manuel Johnson MD Chest CTA 10/05/17 11:00 IMPRESSION: 1. No acute pulmonary artery embolism. 2. Stable descending thoracic aortic aneurysm 5.4 x 5.3 cm. 3. Large hiatal hernia. 4. Right middle lobe, lingular, and left upper lobe chronic appearing atelectasis. D/ / 10/05/2017 12:06:50 Leon Dejesus MD / silas Interpreting Provider: Leon Dejesus MD Qualifiers: Hernia type: ventral Obstruction and gangrene presence: without obstruction or gangrene Qualified Code(s): K43.9 - Ventral hernia without obstruction or gangrene - Subjective Interval history: Patient was seen and assessed at bedside at 1020 AM. Pt was sleeping, she was drowsy, but arouses easily. I expressed concern that she has been sleeping a lot and encouraged her to get up from the bed and try to move about her room and sit in her chair. Reports that back pain is under control. She denies any headache, vision changes, dizziness, or chest pain. She continues to deny any abdominal pain or nausea, vomiting, diarrhea. Pt is aware of possible transfer to [facility] tomorrow. - Constitutional Vitals: Temp Pulse Resp BP Pulse Ox 98.0 F 81 16 103/55 95 10/10/17 11:10 10/10/17 11:10 10/10/17 11:10 10/10/17 11:10 10/10/17 11:10 General appearance: Present: cooperative, A&O X 3, pleasant, no acute distress, answers questions appropriately - Head Head exam: Present: atraumatic, normal inspection, normocephalic - Eye Eye exam: Present: normal appearance, conjuntiva pink, sclera anicteric - Neck Neck exam general surgery: Present: supple, trachea midline. Absent: lymphadenopathy, tenderness - Respiratory Respiratory exam: Present: CTAB. Absent: accessory muscle use, chest wall tenderness, rales, respiratory distress, rhonchi, wheezes - Cardiovascular Cardiovascular exam: Present: RRR, +S1, +S2. Absent: diastolic murmur, gallop, rubs, systolic murmur - GI/Abdominal GI/Abdominal exam: Present: normal bowel sounds, soft. Absent: distended, hepatomegaly, tenderness - Extremities Exam Extremities exam: Present: normal capillary refill, normal inspection, warm, radial pulses palpable and symmetrical. Absent: calf tenderness, cyanotic, pedal edema, tenderness - Neurological Exam Neurological exam: Present: alert, oriented X3, no focal deficits, strengths equal and symetr throughout. Absent: facial droop, speech deficit - Skin Skin exam: Present: dry, intact, normal color, warm. Absent: rash Internal Medicine: Result - Labs CBC & Chem 7: 10/07/17 03:11 10/07/17 03:11 Consult Discharge Plan - Plan Referrals: Bj Card MD [Primary Care Provider] - Keyshawn Brown DO [Partnered Physician] - 10/22/17 10:00 am
[2017-10-10] MEDS: OXYCODONE Oral CONC 10 MG/0.5 ML ORAL.SYG SL PRN (19:26)
[2017-10-11] MEDS: ALPRAZolam 0.5 MG TABLET PO PRN (00:06)
[2017-10-11] MEDS: *HR* Heparin 5,000 UNIT/ML VIAL SQ SCH ×2 (05:59→17:44)
[2017-10-11] MEDS: Carbidopa/Levodopa 25/100 TABLET PO SCH ×3 (09:29→20:53)
--- NOTE | 2017-10-11 11:41 | Internal Med Progress Note ---
Date of Encounter: 10/11/17 Time of Encounter: 09:10 - Assessment and plan (1) Acute exacerbation of chronic low back pain Current Visit: Yes Status: Acute Assessment and plan: Back pain stable, chronic. Reports adequate pain relief with current medications. Right lower back painful to palpation, improving. Patient actively participating in PT Patient waiting on ECF placement. Continue home medications Continue PT (2) CAD (coronary artery disease) Current Visit: Yes Status: Chronic Assessment and plan: Chronic. Pt denies chest pain. Continue Plavix. Qualifiers: Coronary Disease-Associated Artery/Lesion type: [place] artery [place] vs. transplanted heart: [place] heart Associated angina: without angina Qualified Code(s): I25.10 - Atherosclerotic heart disease of [place] coronary artery without angina pectoris (3) Descending thoracic aortic aneurysm Current Visit: Yes Status: Chronic Assessment and plan: Stable. 5.4x 5.3cm. Follow up with PCP/vascular after discharge. PT states that PCP is aware and monitoring and hernias. Chest X-Ray 10/05/17 06:14 IMPRESSION: Large hiatal hernia with left basilar atelectasis, unchanged. 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 D/ / Jean Grover MD / Jean Grover MD Interpreting Provider: Jean Grover MD Chest CTA 10/05/17 11:00 IMPRESSION: 1. No acute pulmonary artery embolism. 2. Stable descending thoracic aortic aneurysm 5.4 x 5.3 cm. 3. Large hiatal hernia. 4. Right middle lobe, lingular, and left upper lobe chronic appearing atelectasis. D/ / 10/05/2017 12:06:50 Leon Dejesus MD / silas Interpreting Provider: Leon Dejesus MD (4) Hypertension Current Visit: Yes Status: Chronic Assessment and plan: Chronic. Stable and normotensive. Continue home medications. Continue to monitor vital signs. Qualifiers: Hypertension type: essential hypertension Qualified Code(s): I10 - Essential (primary) hypertension (5) Parkinson disease Current Visit: Yes Status: Chronic Assessment and plan: Chronic. Continue carbidopa levodopa. Monitor for falls and safety, pt is weak, continue PT Pt is deconditioned due to pain, up with 2 person assist only (6) DVT prophylaxis Current Visit: Yes Status: Acute Assessment and plan: Heparin SQ (7) Abdominal hernia Current Visit: Yes Status: Acute Assessment and plan: No evidence of obstruction, no pain. Pt denies diarrhea or constipation. Abd soft, bs present. Patient has large hiatal hernia with nearly the entire stomach within the thorax. Stable. Pt follows with PCP who is aware and monitoring. Chest X-Ray 10/05/17 06:14 IMPRESSION: Large hiatal hernia with left basilar atelectasis, unchanged. 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 D/ / Jean Grover MD / Jean Grover MD Interpreting Provider: Jean Grover MD Abdomen/Pelvis CT 10/05/17 11:00 IMPRESSION: 1. Ventral hernia containing nondilated loops of small bowel. Additionally, there is laxity of the left lateral abdominal wall containing portions of the small bowel and colon. No evidence of bowel obstruction. 2. Large hiatal hernia with nearly the entire stomach within the thorax. 3. Colonic diverticulosis without associated acute inflammatory changes. 4. Cholelithiasis. D/ / 10/05/2017 12:25:38 Manuel Johnson MD / gabriel Interpreting Provider: Manuel Johnson MD Chest CTA 10/05/17 11:00 IMPRESSION: 1. No acute pulmonary artery embolism. 2. Stable descending thoracic aortic aneurysm 5.4 x 5.3 cm. 3. Large hiatal hernia. 4. Right middle lobe, lingular, and left upper lobe chronic appearing atelectasis. D/ / 10/05/2017 12:06:50 Leon Dejesus MD / silas Interpreting Provider: Leon Dejesus MD Qualifiers: Hernia type: ventral Obstruction and gangrene presence: without obstruction or gangrene Qualified Code(s): K43.9 - Ventral hernia without obstruction or gangrene - Time Spent With Patient less than 15 minutes - Subjective Interval history: Patient was seen and assessed at bedside at 0910 AM. Reports that back pain was worse this a.m., but did not have her lidocaine patch on, she does report adequate pain relief with them. She denies any headache, vision changes, dizziness, or chest pain. Denies abdominal pain or nausea, vomiting, diarrhea. Pt is aware that transfer status is in the pre-cert stage. - Constitutional Vitals: Temp Pulse Resp BP Pulse Ox 98.0 F 52 18 128/72 94 10/11/17 07:03 10/11/17 07:03 10/11/17 07:03 10/11/17 07:03 10/11/17 07:03 General appearance: Present: cooperative, A&O X 3, pleasant, no acute distress, answers questions appropriately - Head Head exam: Present: atraumatic, normocephalic - Eye Eye exam: Present: normal appearance, conjuntiva pink, sclera anicteric - Neck Neck exam general surgery: Present: supple, trachea midline. Absent: lymphadenopathy, tenderness - Respiratory Respiratory exam: Present: CTAB. Absent: accessory muscle use, rales, respiratory distress, rhonchi, wheezes - Cardiovascular Cardiovascular exam: Present: RRR, +S1, +S2. Absent: diastolic murmur, gallop, rubs, systolic murmur - GI/Abdominal GI/Abdominal exam: Present: normal bowel sounds, soft. Absent: distended, hepatomegaly, tenderness - Extremities Exam Extremities exam: Present: normal capillary refill, normal inspection, warm, radial pulses palpable and symmetrical. Absent: calf tenderness, cyanotic, pedal edema, tenderness - Neurological Exam Neurological exam: Present: CN II-XII intact, oriented X3, no focal deficits. Absent: facial droop, speech deficit - Skin Skin exam: Present: dry, intact, normal color, warm. Absent: rash Internal Medicine: Result - Labs CBC & Chem 7: 10/07/17 03:11 10/07/17 03:11 Consult Discharge Plan - Plan Referrals: Bj Card MD [Primary Care Provider] - Keyshawn Brown DO [Partnered Physician] - 10/22/17 10:00 am
[2017-10-11] MEDS: OXYCODONE Oral CONC 10 MG/0.5 ML ORAL.SYG SL PRN (12:13)
[2017-10-12] MEDS: ALPRAZolam 0.5 MG TABLET PO PRN (01:00)
[2017-10-12] MEDS: OXYCODONE Oral CONC 10 MG/0.5 ML ORAL.SYG SL PRN ×3 (04:51→22:08)
[2017-10-12] MEDS: *HR* Heparin 5,000 UNIT/ML VIAL SQ SCH ×2 (05:37→15:53)
[2017-10-12] MEDS: Carbidopa/Levodopa 25/100 TABLET PO SCH ×3 (10:52→21:00)
--- NOTE | 2017-10-12 15:05 | Internal Med Progress Note ---
Date of Encounter: 10/13/17 Time of Encounter: 15:04 - Subjective Interval history: Assessment and plan (1) Acute exacerbation of chronic low back pain Current Visit: Yes Status: Acute Assessment and plan: Back pain unchanged Continue current pain mgt Waiting on ECF placement. Continue PT (2) CAD (coronary artery disease) No active chest pain Continue home medications (3) Descending thoracic aortic aneurysm Stable. 5.4x 5.3cm. Follow up with PCP/vascular after discharge. - Constitutional Vitals: Temp Pulse Resp BP Pulse Ox 97.7 F 53 16 123/72 94 10/12/17 07:54 10/12/17 07:54 10/12/17 07:54 10/12/17 07:54 10/12/17 07:54 General appearance: Present: cooperative, A&O X 3, pleasant, no acute distress, answers questions appropriately - Head Head exam: Present: atraumatic, normocephalic - Eye Eye exam: Present: PERRL, conjuntiva pink, sclera anicteric Pupils: Present: PERRL - Neck Neck exam general surgery: Present: normal inspection, supple, trachea midline. Absent: lymphadenopathy, tenderness, nuchal rigidity, thyromegaly - Respiratory Respiratory exam: Present: CTAB. Absent: accessory muscle use, rales, rhonchi, wheezes - Cardiovascular Cardiovascular exam: Present: RRR, +S1, +S2. Absent: diastolic murmur, gallop, rubs, systolic murmur - GI/Abdominal GI/Abdominal exam: Present: normal bowel sounds, soft, no peritoneal signs. Absent: distended, firm, guarding, tenderness - Extremities Exam Extremities exam: Present: warm. Absent: calf tenderness, cyanotic, pedal edema - Neurological Exam Neurological exam: Present: CN II-XII intact, oriented X3, no focal deficits. Absent: pronater drift, facial droop, speech deficit - Psychiatric Psychiatric exam: Present: flat affect - Skin Skin exam: Present: dry, intact Internal Medicine: Result - Labs CBC & Chem 7: 10/07/17 03:11 10/07/17 03:11 Consult Discharge Plan - Plan Referrals: Bj Card MD [Primary Care Provider] - Keyshawn Brown DO [Partnered Physician] - 10/22/17 10:00 am
[2017-10-13 04:28] LABS: Basophils # 0.1 K/mcL (0.0-0.2); Basophils % 0.7 %; Eosinophils # 0.2 K/mcL (0.0-0.6); Eosinophils % 1.8 %; Hematocrit 37.1 % (35.3-44.9); Hemoglobin 12.1 g/dL (11.5-15.4); Immature Granulocytes % 0.4 % (0-4); Lymphocytes # 3.5 K/mcL (0.6-4.6); Lymphocytes % 41.5 %; Mean Corpuscular HGB Conc 32.6 g/dL (31.6-35.5); Mean Corpuscular Hemoglobin 29.8 pg (28.0-33.3); Mean Corpuscular Volume 91.4 fL (83.0-100.0); Mean Platelet Volume 9.5 fL (9.4-12.4); Monocytes # 0.6 K/mcL (0.0-1.3); Monocytes % 6.8 %; Neutrophils # 4.1 K/mcL (1.6-8.9); Platelet Count 233 K/mcL (140-400); Red Blood Count 4.06 M/mcL (3.82-4.97); Red Cell Distribution Width 13.1 % (11.5-14.5); Segmented Neutrophils % 48.8 %
[2017-10-13] MEDS: OXYCODONE Oral CONC 10 MG/0.5 ML ORAL.SYG SL PRN ×3 (05:02→20:32)
[2017-10-13] MEDS: *HR* Heparin 5,000 UNIT/ML VIAL SQ SCH ×2 (05:02→17:23)
[2017-10-13] MEDS: Carbidopa/Levodopa 25/100 TABLET PO SCH ×3 (09:12→20:31)
--- NOTE | 2017-10-13 15:21 | Internal Med Progress Note ---
Date of Encounter: 10/13/17 Time of Encounter: 15:14 - Subjective Interval history: Assessment and plan (1) Acute exacerbation of chronic low back pain Current Visit: Yes Status: Acute Assessment and plan: Back pain unchanged Continue current pain mgt Waiting on ECF placement. Continue PT (2) CAD (coronary artery disease) No active chest pain Continue home medications (3) Descending thoracic aortic aneurysm Stable. 5.4x 5.3cm. Follow up with PCP/vascular after discharge. (4) Abdominal pain with N/V: Per H&P she was having N/V and generalized abdominal pain when admitted. Her pain and N/V have resolved but her imaging findings show very large Hiatal hernia with a large portion of the stomach within the thoracic cavity. She also has a large ventral hernia with several loops of bowel within it. She is tolerating meals. Her descending thoracic aneurysm is 5.3x 5.4 and described as stable. No notation of dissection was made. Distal pulses are equal. Surgery consulted for the large hiatal hernia. - Constitutional Vitals: Temp Pulse Resp BP Pulse Ox 97.9 F 59 16 141/83 95 10/13/17 11:16 10/13/17 11:16 10/13/17 11:16 10/13/17 11:16 10/13/17 11:16 General appearance: Present: cooperative, A&O X 3, pleasant, no acute distress, answers questions appropriately - Head Head exam: Present: atraumatic, normocephalic - Eye Eye exam: Present: PERRL, conjuntiva pink, sclera anicteric Pupils: Present: PERRL - Neck Neck exam general surgery: Present: supple, trachea midline. Absent: lymphadenopathy - Respiratory Respiratory exam: Present: CTAB. Absent: accessory muscle use, rales, rhonchi, wheezes - Cardiovascular Cardiovascular exam: Present: RRR, +S1, +S2. Absent: diastolic murmur, gallop, rubs, systolic murmur - GI/Abdominal GI/Abdominal exam: Present: normal bowel sounds, soft, no peritoneal signs. Absent: distended, tenderness - Extremities Exam Extremities exam: Present: warm, radial pulses palpable and symmetrical. Absent : calf tenderness, cyanotic, pedal edema - Back Exam Back exam: Present: muscle spasm, paraspinal tenderness, vertebral tenderness. Absent: full ROM - Neurological Exam Neurological exam: Present: CN II-XII intact, oriented X3, no focal deficits. Absent: pronater drift, facial droop, speech deficit - Psychiatric Psychiatric exam: Present: normal affect, normal mood - Skin Skin exam: Present: dry, intact Internal Medicine: Result - Labs CBC & Chem 7: 10/13/17 04:00 10/07/17 03:11 Labs: Short CBC 10/13/17 Range/Units 04:00 WBC 8.4 (4.3-11.1) K/mcL Hgb 12.1 (11.5-15.4) g/dL Hct 37.1 (35.3-44.9) % Plt Count 233 (140-400) K/mcL Neutrophils # 4.1 (1.6-8.9) K/mcL Consult Discharge Plan - Plan Referrals: Bj Card MD [Primary Care Provider] - Keyshawn Brown DO [Partnered Physician] - 10/22/17 10:00 am
[2017-10-14] MEDS: ALPRAZolam 0.5 MG TABLET PO PRN ×2 (01:21→17:08)
[2017-10-14] MEDS: OXYCODONE Oral CONC 10 MG/0.5 ML ORAL.SYG SL PRN ×2 (03:10→17:08)
[2017-10-14] MEDS: *HR* Heparin 5,000 UNIT/ML VIAL SQ SCH (05:35)
[2017-10-14 06:25] LABS: Basophils # 0.1 K/mcL (0.0-0.2); Basophils % 0.7 %; Eosinophils # 0.1 K/mcL (0.0-0.6); Eosinophils % 1.5 %; Hematocrit 36.8 % (35.3-44.9); Hemoglobin 12.2 g/dL (11.5-15.4); Immature Granulocytes % 0.2 % (0-4); Mean Corpuscular HGB Conc 33.2 g/dL (31.6-35.5); Mean Corpuscular Volume 90.4 fL (83.0-100.0); Mean Platelet Volume 9.5 fL (9.4-12.4); Monocytes # 0.6 K/mcL (0.0-1.3); Monocytes % 7.8 %; Neutrophils # 4.3 K/mcL (1.6-8.9); Nucleated Red Blood Cells 0.5 /100 WBC (0); Platelet Count 221 K/mcL (140-400); Red Blood Count 4.07 M/mcL (3.82-4.97); Red Cell Distribution Width 13.2 % (11.5-14.5); Segmented Neutrophils % 52.8 %
[2017-10-14 06:51] LABS: BUN/Creatinine Ratio 20 (6-26); Blood Urea Nitrogen 16 mg/dL (8-23); Calcium 9.2 mg/dL (8.6-10.3); Carbon Dioxide 26 mEq/L (23-29); Chloride 105 mEq/L (98-107); Glucose 99 mg/dL (70-105); Osmolality,Calculated 289 (280-300); Potassium 4.1 mEq/L (3.5-5.1); Sodium 139 mEq/L (136-145); eGFR For African Americans > 60 (> 60); eGFR For Non-African Americans > 60 (> 60)
[2017-10-14] MEDS: Carbidopa/Levodopa 25/100 TABLET PO SCH (11:18)
--- NOTE | 2017-10-14 14:01 | Internal Med Progress Note ---
Date of Encounter: 10/14/17 Time of Encounter: 14:01 - Subjective Interval history: Interval Changes: 10/14/2017 Peer to Peer done and previous denial of rehab overturned Her back pain is improved She is medically ready to be d/c'd if rehab/SNF arrangements are ready. Assessment and plan (1) Acute exacerbation of chronic low back pain Current Visit: Yes Status: Acute Assessment and plan: Back pain unchanged Continue current pain mgt Waiting on ECF placement. Continue PT/OT (2) CAD (coronary artery disease) No active chest pain Continue home medications (3) Descending thoracic aortic aneurysm Stable. 5.4x 5.3cm. Follow up with PCP/vascular after discharge. (4) Abdominal pain with N/V: Per H&P she was having N/V and generalized abdominal pain when admitted. Her pain and N/V have resolved but her imaging findings show very large Hiatal hernia with a large portion of the stomach within the thoracic cavity. She also has a large ventral hernia with several loops of bowel within it. She is tolerating meals. Her descending thoracic aneurysm is 5.3x 5.4 and described as stable. No notation of dissection was made. Distal pulses are equal. Surgery was not concerned unless aneurysm close to 7 cm or signs of dissection. She has neither. It needs followed and she has f/u with her surgeon in [place]. Surgery consulted for the large hiatal hernia and ventral hernia. Per surgery if asymptomatic she can be seen as OP in the future. Consult cancelled. - Constitutional Vitals: Temp Pulse Resp BP Pulse Ox 97.9 F 47 14 112/62 95 10/14/17 07:46 10/14/17 07:46 10/14/17 07:46 10/14/17 07:46 10/14/17 07:46 General appearance: Present: cooperative, A&O X 3, pleasant, no acute distress, answers questions appropriately - Head Head exam: Present: atraumatic, normocephalic - Eye Eye exam: Present: PERRL, conjuntiva pink, sclera anicteric Pupils: Present: PERRL - Neck Neck exam general surgery: Present: supple, trachea midline. Absent: lymphadenopathy - Respiratory Respiratory exam: Present: CTAB. Absent: accessory muscle use, rales, rhonchi, wheezes - Cardiovascular Cardiovascular exam: Present: RRR, +S1, +S2. Absent: diastolic murmur, gallop, rubs, systolic murmur - GI/Abdominal GI/Abdominal exam: Present: normal bowel sounds, soft, no peritoneal signs. Absent: distended, tenderness - Extremities Exam Extremities exam: Present: warm, radial pulses palpable and symmetrical. Absent : calf tenderness, cyanotic, pedal edema - Back Exam Back exam: Present: muscle spasm, paraspinal tenderness - Neurological Exam Neurological exam: Present: CN II-XII intact, oriented X3, no focal deficits. Absent: pronater drift, facial droop, speech deficit - Skin Skin exam: Present: dry, intact Internal Medicine: Result - Labs CBC & Chem 7: 10/14/17 05:34 10/14/17 05:34 Labs: Short CBC 10/14/17 Range/Units 05:34 WBC 8.2 (4.3-11.1) K/mcL Hgb 12.2 (11.5-15.4) g/dL Hct 36.8 (35.3-44.9) % Plt Count 221 (140-400) K/mcL Neutrophils # 4.3 (1.6-8.9) K/mcL BMP 10/14/17 05:34 Sodium 139 Potassium 4.1 Chloride 105 Carbon Dioxide 26 BUN 16 Creatinine 0.82 Glucose 99 Calcium 9.2 Consult Discharge Plan - Plan Referrals: Bj Card MD [Primary Care Provider] - Keyshawn Brown DO [Partnered Physician] - 10/22/17 10:00 am
--- NOTE | 2017-10-14 14:45 | Discharge Summary ---
- NOTES TO OUTPATIENT PROVIDER Notes to Outpatient Provider: At the time of admission she had a CTA-Chest and CT-Abd/Pelvis which showed a stable descending thoracic aneurysm 5.2 x 5.4 cm without signs of dissection. A large hiatal hernia and ventral hernia were also noted. Per pt report she's seen a surgeon at [facility] in [place] who is following both. She's asymptomatic but surgery was called and we were reassured that unless symtomatic the hiatal hernia and ventral hernia can be taken care of as OP and may not require treatment unless they become symtopatic. She will require OP f/u on a non urgent basis. Date of Encounter: 10/14/17 Time of Encounter: 14:35 - Discharge Diagnosis (1) Acute exacerbation of chronic low back pain Priority: Primary Status: Acute Code(s): M54.5 - Low back pain; G89.29 - Other chronic pain (2) Descending thoracic aortic aneurysm Priority: Secondary Status: Chronic Comments: Stable (3) Hiatal hernia Priority: Secondary Status: Chronic Code(s): K44.9 - Diaphragmatic hernia without obstruction or gangrene Hospital course: Hospital course: Ms. Gallo is a 76 year old female with history of CAD, hyperlipidemia, HTN, ND who presented with an acute nontraumatic onset of lower back pain and abdominal pain. She stated that all of the sudden while laying in bed she experienced right-sided lower back pain. She denied fevers/chills, n/v, diarrhea, melana or hematochezia. In the emergency department, she was complaing of abdominal pain with intractable n/v. She was given Fentanyl 25 mg x2, Zofran, and 500 ml normal saline bolus. A chest CTA showed no PE, but did redemonstrate a known stable decending TAA that was 5.2 x5.4 cm and previously w /u at [facility] in [place] and is being followed by her doctors in [place]. It also showe a very llarge hiatal hernia with most of the stomach is in the thoracic cavity and a ventral hernia with several loops of bowel within it which did not aappear strangulated. Additionally, cholelithiasis without mention of dilated bowel duct was noted. Apparently her N/V and abdominal pain had resolved by the time she reached the floor from the ER. It's not clear if these findings have been w/u in the past or if they are stable or have acutely worsened. Throughout her hospital course mechanical back sharad was the focus of he w/u and treatment which included PT. I met the patien late in her treatment course and questioned the sudden nontraumatic onset of symtoms and lack of reproducible mechanical symptoms. I contacted surgery who were not concerned with her aneurysm and did not feel her hernias required urgent w/u and could be evaluated as an OP. She was stable and had no signs of incarcerated bowel or dissection. She was discharged to a rehab facility for treatment of mechanical back pain. She will need f/u with her vascular surgeons in [place] and general surgery for her aneurysm and hernias. Discharge diagnoses: (1) Acute exacerbation of chronic low back pain (2) CAD (coronary artery disease) (3) Descending thoracic aortic aneurysm (4) Abdominal pain with N/V. Discharge discussed with: patient, family, nurse, social work Time spent discussing smoking cessation with patient: more than 10 minutes - Time Spent with Patient Total time spent providing and/or coordinating discharge services: Greater than 30 minutes - Discharge Medications Prescriptions: Lidocaine Patch [Lidoderm 5% patch] 1 each TP DAILY 7 Days #7 adh..patch Home Medications: Carbidopa/Levodopa [Carbidopa-Levodopa 25-100 Tab] 1 tab PO TID 03/09/16 [ History] Albuterol Sulfate [Albuterol Inhaler] 2 puff IH Q4HR PRN 01/05/17 [History] Clopidogrel [Plavix] 75 mg PO DAILY 01/05/17 [History] Metoprolol [Lopressor] 12.5 mg PO BID 01/05/17 [History] Pantoprazole Sodium [Protonix] 40 mg PO DAILY 02/13/17 [History] ALPRAZolam [Xanax 0.5 MG Tablet] 0.5 mg PO BID PRN #20 02/16/17 [Rx] Hydrocodone/Acetaminophen [Hydrocodon-Acetaminophen 5-325] 1 tab PO TID PRN [History] Lidocaine Patch [Lidoderm 5% patch] 1 each TP DAILY 7 Days #7 adh..patch [Rx] Allergies/Adverse Reactions: 3 Allergy/AdvReac Type Severity Reaction Status Date / Time No Known Allergies Allergy Verified 10/05/17 07:52 Date of admission: 10/05/17 13:18 Primary care physician: Bj Card MD Consults: 10/06/17 14:17 Consult to Physical Therapy [CONS] Routine Comment: Evaluate, develop and implement POC Reason for Consult: weakness Does patient have active BEDREST order?: No Is patient medically & hemodynamically stable?: Yes Patient assessed for mobility or mobilized this visit?: Yes 10/06/17 14:18 Consult to Occupational Therapy [CONS] Routine Comment: Evaluate, develop and implement POC Reason for Consult: weakness Does patient have active BEDREST order?: No Is patient medically & hemodynamically stable?: Yes Patient assessed for mobility or mobilized this visit?: Yes 10/07/17 16:28 Consult to Owner Professional Engineer [CONS] Routine Reason for SW Consult: Discharge planning, PT wants pt to go to ECF for rehab , states that pt is unsafe to return home. Pt is refusing to go to ECF, states that she has a 55 year old son with CP at home who needs help and states that she already has home health. Discharging clinician: Geovany Lopez Anticipated date of discharge: 10/14/17 - Constitutional Vitals: Temp Pulse Resp BP Pulse Ox 97.9 F 47 14 112/62 95 10/14/17 07:46 10/14/17 07:46 10/14/17 07:46 10/14/17 07:46 10/14/17 07:46 General appearance: Present: cooperative, A&O X 3, pleasant, no acute distress, answers questions appropriately - Head Head exam: Present: atraumatic, normocephalic - Eye Eye exam: Present: PERRL, conjuntiva pink, sclera anicteric Pupils: Present: PERRL - Neck Neck exam general surgery: Present: supple, trachea midline. Absent: lymphadenopathy - Respiratory Respiratory exam: Present: CTAB. Absent: accessory muscle use, rales, rhonchi, wheezes - Cardiovascular Cardiovascular exam: Present: RRR, +S1, +S2. Absent: diastolic murmur, gallop, rubs, systolic murmur - GI/Abdominal GI/Abdominal exam: Present: normal bowel sounds, soft, no peritoneal signs. Absent: distended, firm, guarding, tenderness - Extremities Exam Extremities exam: Present: warm. Absent: calf tenderness, cyanotic, pedal edema - Neurological Exam Neurological exam: Present: CN II-XII intact, oriented X3, no focal deficits. Absent: pronater drift, facial droop, speech deficit - Psychiatric Psychiatric exam: Present: normal affect, normal mood - Skin Skin exam: Present: dry, intact - Patient Status Disposition: Transfer SNF Condition: Fair - Discharge Instructions Follow Up With: Bj Card MD [Primary Care Provider] - Keyshawn Brown DO [Partnered Physician] - 10/22/17 10:00 am
[2017-10-14 15:15] VITALS: BP 117/69
--- NOTE | 2017-10-14 15:19 | Physician Discharge Referral ---
ExtendedCare Referral Info Transfer To: Transitions Provider in Charge: John Provider in Charge after Transfer: PCP Institutional Level of Care: Skilled - Diagnosis (1) Acute exacerbation of chronic low back pain Priority: Primary Status: Acute (2) Descending thoracic aortic aneurysm Status: Chronic (3) Hiatal hernia Status: Chronic Prognosis: Good Aware of Diagnosis: Patient, Family Aware of Prognosis: Patient, Family - Transfer Medications Prescriptions: Lidocaine Patch [Lidoderm 5% patch] 1 each TP DAILY 7 Days #7 adh..patch Home Medications: Carbidopa/Levodopa [Carbidopa-Levodopa 25-100 Tab] 1 tab PO TID 03/09/16 [ History] Albuterol Sulfate [Albuterol Inhaler] 2 puff IH Q4HR PRN 01/05/17 [History] Clopidogrel [Plavix] 75 mg PO DAILY 01/05/17 [History] Metoprolol [Lopressor] 12.5 mg PO BID 01/05/17 [History] Pantoprazole Sodium [Protonix] 40 mg PO DAILY 02/13/17 [History] ALPRAZolam [Xanax 0.5 MG Tablet] 0.5 mg PO BID PRN #20 02/16/17 [Rx] Hydrocodone/Acetaminophen [Hydrocodon-Acetaminophen 5-325] 1 tab PO TID PRN [History] Lidocaine Patch [Lidoderm 5% patch] 1 each TP DAILY 7 Days #7 adh..patch [Rx] Allergies/Adverse Reactions: 3 Allergy/AdvReac Type Severity Reaction Status Date / Time No Known Allergies Allergy Verified 10/05/17 07:52 - Respiratory Orders Smoking Cessation: Smoking cessation has been advised. For more information, call the [place] Tobacco Quit Line at 0-083-DAZD-NOW. - Mobility Orders Ambulate CERTIFICATION: I certify that the transfer of the above named patient to an Extended Care Facility is necessary for the continuing treatment of the diagnosis listed. The above information is true and accurate reflection of patient's current condition. Confidential - Redisclosure prohibited without a patient's written consent.
== END 2017-10-14 17:20 ==
LOC: 3BNU 05:35 → EMEROO 05:35 → 3BNU 14:25
PROVIDERS: ADMIT Student in an Organized Health Care Education/Training Program; ATTEND Registered Nurse

== ENCOUNTER 2018-05-10 14:54 | Observation (INO) ==
--- NOTE | 2018-05-10 14:56 | Emergency Department Note ---
Disposition Clinical Impression: Chest pain Disposition: Admitted As Inpatient Condition: Good Time of Disposition: 17:36 General Adult HPI - General Stated complaint: General Time Seen by Provider: 05/10/18 14:55 Nursing Notes Reviewed: Yes Vital Signs Reviewed: Yes - History of Present Illness HPI Narrative: 77-year-old female presented to emergency department with concern for chest pain. She was brought her by EMS. Patient reported having abdominal pain as well as back pain. Reports history of both STEMI as well as thoracic aortic aneurysm. Patient reports that the symptoms of chest pain or tightness, states that the same as when she had a heart attack before. Reports radiation to the back and into the abdomen. - Related Data Home Medications Medication Instructions Recorded Confirmed Clopidogrel [Plavix] 75 mg PO DAILY 01/05/17 05/10/18 Metoprolol [Lopressor] 12.5 mg PO BID 01/05/17 05/10/18 Hydrocodone/Acetaminophen 1 tab PO TID PRN 10/05/17 05/10/18 [Hydrocodon-Acetaminophen 5-325] ALPRAZolam [Xanax 0.5 MG Tablet] 0.5 mg PO DAILY PRN 05/10/18 05/10/18 Carbidopa/Levodopa 1 tab PO TID 05/10/18 05/10/18 [Carbidopa-Levodopa 25-100 Tab] Lidocaine Patch [Lidoderm 5% patch] 1 each TP DAILY PRN 05/10/18 05/10/18 Nitroglycerin [Nitrostat] 0.4 mg PO AD 05/10/18 05/10/18 Allergies Allergy/AdvReac Type Severity Reaction Status Date / Time No Known Allergies Allergy Verified 05/10/18 16:55 All systems ED: reviewed and negative except as stated. Review of Systems: As Per HPI Constitutional: Denies: fever Cardiovascular: Reports: chest pain Respiratory: Denies: cough, dyspnea Gastrointestinal: Reports: abdominal pain. Denies: nausea, vomiting Genitourinary: Denies: dysuria Musculoskeletal: Reports: back pain Integumentary: Denies: rash Past Medical History - Past Medical History Medical history: Reports: coronary artery disease, hyperlipidemia, hypertension , myocardial infarction, other Surgical history: Reports: angioplasty/stent, herniorrhaphy, other Psychiatric history: Reports: anxiety, depression - Social History Smoking Status: Never smoker Smokeless Tobacco Status: No Alcohol use: Reports: none Drug use: Reports: none Physical Exam - General Limitations: no limitations General appearance: alert, in no apparent distress - Head Head exam: normocephalic - Eye Eye exam: Present: EOMI - ENT ENT exam: normal oropharynx - Neck Neck exam: Present: trachea midline - Chest Chest inspection: Present: symmetric chest wall rise - Respiratory Respiratory exam: Present: normal lung sounds bilaterally. Absent: respiratory distress - Cardiovascular Cardiovascular exam: Present: regular rate, bradycardia, normal heart sounds - Abdominal Exam Abdominal exam: Present: soft, Non-Tender. Absent: distention, guarding, rebound, rigidity - Extremities Exam Extremities exam: Present: normal capillary refill - Back Exam Back exam: Present: full ROM - Neurological Exam Neurological exam: Present: alert, oriented X3, CN II-XII intact - Psychiatric Psychiatric exam: Present: normal affect, normal mood - Skin Skin exam: Present: warm, dry, intact, normal color. Absent: rash Course Vital Signs Temperature 99.2 F 05/10/18 15:14 Pulse Rate 57 05/10/18 15:14 Respiratory Rate 20 05/10/18 15:14 Blood Pressure 204/75 05/10/18 15:14 O2 Sat by Pulse Oximetry 97 05/10/18 15:14 Temperature 99.2 F 05/10/18 15:14 Pulse Rate 58 05/10/18 17:30 Respiratory Rate 20 05/10/18 17:30 Blood Pressure 155/56 05/10/18 17:30 O2 Sat by Pulse Oximetry 96 05/10/18 17:30 Oxygen Delivery Oxygen Delivery Room Air Medical Decision Making - [facility] Narrative Medical decision making narrative: 77-year-old female is emergency department with concern for chest pain. Patient EKG did not reveal any ischemic changes. Troponin was negative. Chest x-ray did not reveal any acute cardiopulmonary changes. We obtain a CTA as patient has history of thoracic aortic aneurysm. Does not reveal any evidence of acute rupture or dissection. Per radiology, only mild interval increase in size of the descending thoracic aortic aneurysm. Discussion was made at bedside regarding admission. Patient agrees with plan to stay as she is at high risk and has heart score 5. Soma limits as well. Patient hemodynamic was stable not in acute distress. Hospitalist agreed to accept the patient. Chest X-Ray 05/10/18 15:18 IMPRESSION: 1. No convincing acute cardiopulmonary abnormality. 2. Left basilar opacification corresponding to the large hiatal hernia seen on the prior CT. 3. Atherosclerosis of the thoracic aorta with a descending thoracic aortic aneurysm. D/ / Stiven Pardo MD / Stiven Pardo MD Interpreting Provider: Stiven Pardo MD Abdomen/Pelvis CTA 05/10/18 15:19 IMPRESSION: Mild interval increase in size of descending thoracic aortic aneurysm. Large hiatal hernia containing the entire stomach, with organoaxial rotation. Cholelithiasis and diverticulosis coli. Ventral hernia containing loops of small and large intestine. D/ / Zenon Gipson MD / Zenon Gipson MD Interpreting Provider: Zenon Gipson MD Chest CTA 05/10/18 15:19 IMPRESSION: Mild interval increase in size of descending thoracic aortic aneurysm. Large hiatal hernia containing the entire stomach, with organoaxial rotation. Cholelithiasis and diverticulosis coli. Ventral hernia containing loops of small and large intestine. D/ / Zenon Gipson MD / Zenon Gipson MD Interpreting Provider: Zenon Gipson MD - Lab Data Result diagrams: 05/10/18 15:28 05/10/18 15:28 Lab Results 05/10/18 05/10/18 05/10/18 Range/Units 15:18 15:28 15:28 WBC 8.5 (4.3-11.1) K/mcL RBC 4.28 (3.82-4.97) M/mcL Hgb 13.0 (11.5-15.4) g/dL Hct 38.8 (35.3-44.9) % MCV 90.7 (83.0-100.0) fL MCH 30.4 (28.0-33.3) pg MCHC 33.5 (31.6-35.5) g/dL RDW 12.6 (11.5-14.5) % Plt Count 172 (140-400) K/mcL MPV 9.7 (9.4-12.4) fL Immature Gran % 0.4 (0-4) % Seg Neutrophils % 66.7 % Lymphocytes % 25.8 % Monocytes % 5.6 % Eosinophils % 0.8 % Basophils % 0.7 % Neutrophils # 5.7 (1.6-8.9) K/mcL Lymphocytes # 2.2 (0.6-4.6) K/mcL Monocytes # 0.5 (0.0-1.3) K/mcL Eosinophils # 0.1 (0.0-0.6) K/mcL Basophils # 0.1 (0.0-0.2) K/mcL PT 11.4 (9.4-12.1) Seconds INR 1.0 APTT 28.8 (26.0-36.0) Seconds Sodium 141 (136-145) mEq/L Potassium 4.3 (3.5-5.1) mEq/L Chloride 107 (98-107) mEq/L Carbon Dioxide 29 (23-29) mEq/L BUN 12 (8-23) mg/dL Creatinine 0.85 (0.60-1.20) mg/dL Est GFR ( Amer) > 60 (> 60) Est GFR (Non-Af Amer) > 60 (> 60) BUN/Creatinine Ratio 14 (6-26) Glucose 102 (70-105) mg/dL Calculated Osmolality 292 (280-300) Calcium 9.9 (8.6-10.3) mg/dL Troponin I < 0.03 (< 0.04) ng/mL - EKG Data EKG #1 EKG attestation: Yes I reviewed and interpreted this EKG. EKG results narrative: 50:50 Heart rate 57 bpm, appearing of 160 ms, QRS duration 105 ms, QTC 436 ms, left axis deviation. Sinus rhythm ventricular rate of 57 beats for minute. No evidence of any ischemic ST changes on this EKG. Attestation Statement - Attestation Attestation: I examined this patient and my medical decision-making was reviewed with the Resident Physician. I agree with the documented findings, disposition and treatment plan as described except to the extent set forth below. 77 yo F presents to the ED with concerns of chest pain. Pt is resting comfortably in the ED during the evaluation. Pt reports pain is in the chest and does have some radiation to the back. Pt does report a history of a thoracic aortic aneurysm. Denies associated vomiting or syncope. Laboratory evaluation did not show significant abnormality. ECG did not show STEMI or disrhythmia. CTA obtained for evaluation of thoracic aortic aneurysm which did show an increase in the size of the descending aortic aneurysm however there was no evidence of dissection or rupture. Pt will be admitted to the hospitalist for further care and evaluation.
[2018-05-10] MEDS ORDERED: Aspirin 81 MG TAB.CHEW PO ONE (15:18)
[2018-05-10] MEDS ORDERED: 0.9 % Sodium Chloride 500 ML IVC ONE (15:18)
[2018-05-10] MEDS ORDERED: Isovue-370 500 ML INFUS..BTL IV ONE (15:19)
[2018-05-10 15:43] LABS: Basophils # 0.1 K/mcL (0.0-0.2); Basophils % 0.7 %; Eosinophils # 0.1 K/mcL (0.0-0.6); Eosinophils % 0.8 %; Hematocrit 38.8 % (35.3-44.9); Immature Granulocytes % 0.4 % (0-4); Lymphocytes # 2.2 K/mcL (0.6-4.6); Lymphocytes % 25.8 %; Mean Corpuscular HGB Conc 33.5 g/dL (31.6-35.5); Mean Corpuscular Hemoglobin 30.4 pg (28.0-33.3); Mean Corpuscular Volume 90.7 fL (83.0-100.0); Mean Platelet Volume 9.7 fL (9.4-12.4); Monocytes # 0.5 K/mcL (0.0-1.3); Monocytes % 5.6 %; Neutrophils # 5.7 K/mcL (1.6-8.9); Platelet Count 172 K/mcL (140-400); Red Blood Count 4.28 M/mcL (3.82-4.97); Red Cell Distribution Width 12.6 % (11.5-14.5); Segmented Neutrophils % 66.7 %
[2018-05-10 15:50] LABS: Prothrombin Time 11.4 Seconds (9.4-12.1)
[2018-05-10 15:53] LABS: Activated Partial Thrombo Time 28.8 Seconds (26.0-36.0)
[2018-05-10 16:02] LABS: Troponin I < 0.03 ng/mL (< 0.04)
[2018-05-10 16:05] LABS: BUN/Creatinine Ratio 14 (6-26); Blood Urea Nitrogen 12 mg/dL (8-23); Calcium 9.9 mg/dL (8.6-10.3); Carbon Dioxide 29 mEq/L (23-29); Chloride 107 mEq/L (98-107); Glucose 102 mg/dL (70-105); Osmolality,Calculated 292 (280-300); Potassium 4.3 mEq/L (3.5-5.1); Sodium 141 mEq/L (136-145); eGFR For Non-African Americans > 60 (> 60)
[2018-05-10] MEDS ORDERED: Nitroglycerin 0.4 MG TAB.SUBL SL PRN (17:13)
[2018-05-10] MEDS ORDERED: ALPRAZolam 0.5 MG TABLET PO PRN (18:12)
[2018-05-10] MEDS ORDERED: *HR* HYDROcodone/Acet 5/325 mg TABLET PO PRN (18:13)
[2018-05-10] MEDS ORDERED: Ketorolac 30 MG/ML VIAL IVP PRN (18:13)
[2018-05-10] MEDS ORDERED: Naloxone 0.4 MG/ML INJ IVP PRN (18:14)
--- NOTE | 2018-05-10 18:20 | Internal Med History&Physical ---
Date of Encounter: 05/10/18 Time of Encounter: 18:18 Internal Medicine - H&P: HPI Chief complaint: CHEST PAIN, ABDOMINAL PAIN, BACK PAIN Admitted From: Intrahospital Transfer Plans for Post Hospital Care: Transfer Other History of present illness: Ms. Gallo is a 77 year old female with a PMH of CAD, HLD, HTN, [place], descending thoracic aortic aneurysm. She presents from home via EMS with chest pain, abdominal pain, back pain,, weakness, fatigue which began today. She describes the pain in her chest as tightness and pressure. She describes the pain in her back and abdomen as dull and constant. She denies any aggravating or alleviating factors. Workup in the ED included a CTA chest, abdomen and pelvis which revealed a large hiatal hernia containing the entire stomach with organoaxial rotation and a portion of the pancreas as well as a 6.2 cm aneurysmal dilatation of the descending thoracic aorta which has increased in size from prior study completed at [facility]. I discussed the findings with Dr. Singh vascular surgeon who also reviewed the CT abdomen and pelvis and chest. Given the increase in size of aneurysm and patient's presentation as well as not having the capabilities to handle a potential dissection was recommended the patient be transferred to a tertiary care facility. On presentation the patient had hypertensive urgency with SBP in the 190s. Labs grossly unremarkable with a normal CBC and chemistry. However, given presentation and risks as well as not having surgical coverage should dissection occur it is best for the patient to transfer to an outlying facility. Past Med Surg Social Fam HX - Past Medical History Medical history: coronary artery disease, hyperlipidemia, hypertension, myocardial infarction, other Additional medical history: Parkinsons. STEMI. SBO. chronic back pain Psychiatric history: anxiety, depression - Past Surgical History Surgical History: angioplasty/stent, herniorrhaphy, other Additional surgical history: aortic aneursym. left femoral. ventral hernia w/ bowel obstruction - Social History Smoking Status: Never smoker Smokeless Tobacco Status: No Alcohol use: none Drug use: none - Family History Mother Family Member Ethnicity: Non- Living Status: Hx Family Respiratory Disorders: Yes (Emphysema) Father Family Member Ethnicity: Non- Living Status: Hx Family Cardiac Disorders: Yes (HD) Hx Family Respiratory Disorders: Yes Hx Family Neurologic Disorders: Yes (Dementia) Internal Medicine - H&P: Meds Clopidogrel [Plavix] 75 mg PO DAILY 01/05/17 [History] Metoprolol [Lopressor] 12.5 mg PO BID 01/05/17 [History] Hydrocodone/Acetaminophen [Hydrocodon-Acetaminophen 5-325] 1 tab PO TID PRN [History] ALPRAZolam [Xanax 0.5 MG Tablet] 0.5 mg PO DAILY PRN 05/10/18 [History] Carbidopa/Levodopa [Carbidopa-Levodopa 25-100 Tab] 1 tab PO TID 05/10/18 [ History] Lidocaine Patch [Lidoderm 5% patch] 1 each TP DAILY PRN 05/10/18 [History] Nitroglycerin [Nitrostat] 0.4 mg PO AD 05/10/18 [History] 3 Allergy/AdvReac Type Severity Reaction Status Date / Time No Known Allergies Allergy Verified 05/10/18 16:55 All Systems PM: A 10-system review of systems was performed and is negative for pertinent findings except as documented above in the HPI. - Constitutional Constitutional: no chills, no fever(s), no night sweats - Cardiovascular Cardiovascular ROS IM: chest pain, dyspnea, dyspnea on exertion, no diaphoresis , no edema, no lightheadedness, no orthopnea, no palpitations, no paroxysmal nocturnal dyspnea, no syncope - Respiratory Respiratory: dyspnea, dyspnea on exertion, pain on inspiration, no cough, no hemoptysis, no wheezing, no chest congestion, no excessive phlegm production, no change in phlegm color, no pain with cough - Gastrointestinal Gastrointestinal: abdominal pain (epigastric and LLQ), nausea, no change in bowel habits, no change in stool character, no diarrhea, no early satiety, no vomiting - Genitourinary Genitourinary: no change in urinary stream, no dysuria, no flank pain, no hematuria - Musculoskeletal Musculoskeletal ROS IM: arthralgias, back pain, limited range of motion, muscle weakness, myalgias, no numbness, no tingling - Integumentary Integumentary IM: no rash, no unusual bruising - Neurological Neurological ROS: no confusion, no convulsions, no focal weakness, no numbness, no tingling, no tremor(s) - Constitutional Vitals: Temp Pulse Resp BP Pulse Ox 99.2 F 58 20 155/56 96 05/10/18 15:14 05/10/18 17:30 05/10/18 17:30 05/10/18 17:30 05/10/18 17:30 General appearance: Present: A&O X 3 Exam: . - Head Head exam: Present: atraumatic, normocephalic - Eye Eye exam: Present: PERRL, conjuntiva pink, sclera anicteric Pupils: Present: PERRL - Neck Neck exam general surgery: Present: supple, trachea midline. Absent: lymphadenopathy - Respiratory Respiratory exam: Present: chest wall tenderness, CTAB. Absent: accessory muscle use, decreased breath sounds, rales, respiratory distress, rhonchi, wheezes, tachypnea - Cardiovascular Cardiovascular exam: Present: bradycardia, RRR, +S1, +S2. Absent: diastolic murmur, gallop, rubs, systolic murmur - GI/Abdominal GI/Abdominal exam: Present: normal bowel sounds, soft, tenderness (epigastric and LLQ tenderness without rebound), no peritoneal signs. Absent: distended Additional comments: LUQ thrill, no bruit to auscultation - Extremities Exam Extremities exam: Present: warm, radial pulses palpable and symmetrical. Absent : calf tenderness, cyanotic, pedal edema - Neurological Exam Neurological exam: Present: alert, CN II-XII intact, oriented X3, no focal deficits, strengths equal and symetr throughout. Absent: facial droop, speech deficit - Psychiatric Psychiatric exam: Present: anxious - Skin Skin exam: Present: dry, intact Internal Med - H&P Results - Labs CBC & Chem 7: 05/10/18 15:28 05/10/18 15:28 - EKG Data EKG shows normal: sinus rhythm Rate: bradycardia - EKG Data EKG comments: 05/10/18 18:23 Per my review EKG shows sinus bradycardia without ST-T wave changes - Impressions Impressions Chest X-Ray 05/10/18 15:18 IMPRESSION: 1. No convincing acute cardiopulmonary abnormality. 2. Left basilar opacification corresponding to the large hiatal hernia seen on the prior CT. 3. Atherosclerosis of the thoracic aorta with a descending thoracic aortic aneurysm. D/ / Stiven Pardo MD / Stiven Pardo MD Interpreting Provider: Stiven Pardo MD Abdomen/Pelvis CTA 05/10/18 15:19 IMPRESSION: Mild interval increase in size of descending thoracic aortic aneurysm. Large hiatal hernia containing the entire stomach, with organoaxial rotation. Cholelithiasis and diverticulosis coli. Ventral hernia containing loops of small and large intestine. D/ / Zenon Gipson MD / Zenon Gipson MD Interpreting Provider: Zenon Gipson MD Chest CTA 05/10/18 15:19 IMPRESSION: Mild interval increase in size of descending thoracic aortic aneurysm. Large hiatal hernia containing the entire stomach, with organoaxial rotation. Cholelithiasis and diverticulosis coli. Ventral hernia containing loops of small and large intestine. D/ / Zenon Gipson MD / Zenon Gipson MD Interpreting Provider: Zenon Gipson MD Lumbar Spine X-Ray 05/10/18 18:11 IMPRESSION: Levoconvex scoliotic curvature of the lumbar spine with significant multilevel degenerative change. Findings are not substantially changed from the 12/29/2016 study. No gross compression deformity noted. D/ / Jean Grover MD / Jean Grover MD Interpreting Provider: Jean Grover MD - Assessment and plan (1) Chest pain Current Visit: Yes Status: Acute Assessment and plan: Presents with epigastric pain and substernal chest pressure. Atypical presentation, worse with palpation and deep inspiration. She admits to diaphoresis, dyspnea and abdominal pain as well. Findings of increased size of descending thoracic aortic aneurysm. There is some concern as to whether or not her symptoms could also be related to aneurysm. No dissection found per CTA imaging. However given history and presentation there remains a concern. Case discussed with vascular surgeon Dr. Donald. Given risk factors, presentation and increase in size as well as limitations and surgical capability. That it was [facility] I have discussed transfer with [facility]. Continue to closely monitor while awaiting transfer. Patient remains hemodynamically stable at this time. Qualifiers: Chest pain type: unspecified Qualified Code(s): R07.9 - Chest pain, unspecified (2) Descending thoracic aortic aneurysm Current Visit: No Status: Chronic Assessment and plan: Presents with abdominal pain and low back pain. CTA-chest and CT-abdomen/ pelvis reveals- No infiltrate or consolidation or effusion is identified. There is partial atelectasis of the left lower lobe. There is a large hiatal hernia containing the entire stomach, with organoaxial rotation, and a portion of the pancreas. The heart size is normal. There are calcified lymph nodes in the lower mediastinum. Calcified and noncalcified plaques are present within the aorta with aneurysmal dilatation of the descending thoracic aorta up to 6.2 cm in diameter. A large amount of intramural clot is seen within the aneurysm as on prior. There appear to be postoperative changes of the distal descending thoracic aorta extending caudally. The celiac artery, SMA, both renal arteries, and the SUAD are patent to the extent visualized. No dissection found on CTA chest or CT abdomen/pelvis chronic, increase in size from prior study completed at [facility] (look up record copies from other facilities). was 5.3 cm, now 6.2 cm. Large amount of intramural clot is seen within the aneurysm as on prior. Hemodynamically, the patient remain stable. However, given her presentation with chest pain, abdominal pain and back pain as well as increasing size of aneurysm the patient will be transferred to [facility]. This case was discussed with vascular surgeon who agrees that transfer would be within the patient's benefit. Again, I have discussed this case with [facility] transfer center who has agreed to accept the patient. We are currently awaiting transfer at this time. (3) Intractable abdominal pain Current Visit: No Status: Acute Assessment and plan: As above (4) Acute exacerbation of chronic low back pain Current Visit: No Status: Acute Assessment and plan: Presents with chest pressure and epigastric pain however reports her primary concern is low back pain. Has a history of chronic low back pain and is in acute exacerbation reporting 7/10 dull constant pain which began yesterday evening; in addition to this she is reporting abdominal pain and chest pain as well.. Denies any falls and/or trauma. Tenderness noted along the L-spine and sacrum. L-spine x-ray without acute findings. See above for further assessment and plan (5) CAD (coronary artery disease) Current Visit: No Status: Chronic Qualifiers: Coronary Disease-Associated Artery/Lesion type: unspecified vessel or lesion type [place] vs. transplanted heart: [place] heart Associated angina: with unspecified angina Qualified Code(s): I25.119 - Atherosclerotic heart disease of [place] coronary artery with unspecified angina pectoris (6) Hyperlipidemia Current Visit: No Status: Chronic Assessment and plan: lipid panel in am Qualifiers: Hyperlipidemia type: unspecified Qualified Code(s): E78.5 - Hyperlipidemia , unspecified (7) Hypertension Current Visit: No Status: Chronic Assessment and plan: per hx HTN urgency on admission; likely 2/2 pain pain treated in ED and HTN improved; however repeat vitals not on chart; ED staff informed on need to update vitals SBP 155 during my assessment monitor resume anti-HTN meds PRN hydralazine Qualifiers: Hypertension type: unspecified Qualified Code(s): I10 - Essential (primary ) hypertension (8) Abdominal hernia Current Visit: Yes Status: Acute Assessment and plan: Per history. No changes compared to prior imaging. Qualifiers: Hernia type: unspecified Recurrence: recurrent Qualified Code(s): K46.1 - Unspecified abdominal hernia with gangrene (9) DVT prophylaxis Current Visit: No Status: Acute Assessment and plan: Lovenox - Time Spent With Patient Total time spent is greater than 50% in coordination of care (as documented) at patient's floor/unit and/or counseling patient: less than 15 minutes
--- NOTE | 2018-05-10 20:26 | Discharge Summary ---
Orders not resulted at time of discharge: Pending orders 05/10/18 18:17 EV echocardiogram Routine 05/10/18 21:30 Troponin I Q6H 05/11/18 00:14 Troponin I Q6H 05/11/18 04:00 Basic Metabolic Panel AM 0400 Complete Blood Count [HEME] AM 0400 Lipid Panel AM 0400 Date of Encounter: 05/10/18 Time of Encounter: 20:24 - Discharge Diagnosis (1) Descending thoracic aortic aneurysm Priority: Primary Status: Chronic Assessment and Plan: Presents with abdominal pain and low back pain. CTA-chest and CT-abdomen/ pelvis reveals- No infiltrate or consolidation or effusion is identified. There is partial atelectasis of the left lower lobe. There is a large hiatal hernia containing the entire stomach, with organoaxial rotation, and a portion of the pancreas. The heart size is normal. There are calcified lymph nodes in the lower mediastinum. Calcified and noncalcified plaques are present within the aorta with aneurysmal dilatation of the descending thoracic aorta up to 6.2 cm in diameter. A large amount of intramural clot is seen within the aneurysm as on prior. There appear to be postoperative changes of the distal descending thoracic aorta extending caudally. The celiac artery, SMA, both renal arteries, and the SUAD are patent to the extent visualized. No dissection found on CTA chest or CT abdomen/pelvis chronic, increase in size from prior study completed at [facility] (look up record copies from other facilities). was 5.3 cm, now 6.2 cm. Large amount of intramural clot is seen within the aneurysm as on prior. Hemodynamically, the patient remains stable. However, given her presentation with chest pain, abdominal pain and back pain as well as increasing size of aneurysm the patient will be transferred to [facility] for further evaluation and/ or intervention. This case was discussed with vascular surgeon who agrees that transfer would be within the patient's benefit. Again, I have discussed this case with [facility] transfer center who has agreed to accept the patient. We are currently awaiting transfer at this time. (2) Chest pain Priority: Primary Status: Acute Qualifiers: Chest pain type: unspecified Qualified Code(s): R07.9 - Chest pain, unspecified (3) Intractable abdominal pain Priority: Secondary Status: Acute (4) Acute exacerbation of chronic low back pain Priority: Secondary Status: Acute (5) CAD (coronary artery disease) Priority: Secondary Status: Chronic Qualifiers: Coronary Disease-Associated Artery/Lesion type: unspecified vessel or lesion type [place] vs. transplanted heart: [place] heart Associated angina: with unspecified angina Qualified Code(s): I25.119 - Atherosclerotic heart disease of [place] coronary artery with unspecified angina pectoris (6) Hyperlipidemia Priority: Secondary Status: Chronic Qualifiers: Hyperlipidemia type: unspecified Qualified Code(s): E78.5 - Hyperlipidemia , unspecified (7) Hypertension Priority: Secondary Status: Chronic Qualifiers: Hypertension type: unspecified Qualified Code(s): I10 - Essential (primary ) hypertension (8) Abdominal hernia Priority: Secondary Status: Acute Qualifiers: Hernia type: unspecified Recurrence: recurrent Qualified Code(s): K46.1 - Unspecified abdominal hernia with gangrene (9) DVT prophylaxis Priority: Secondary Status: Acute Hospital course: Ms. Gallo is a 77 year old female See H&P from 05/10/18 18:18 Discharge discussed with: patient, family, nurse - Time Spent with Patient Total time spent providing and/or coordinating discharge services: Less than 30 minutes - Discharge Medications Home Medications: Clopidogrel [Plavix] 75 mg PO DAILY 01/05/17 [History] Metoprolol [Lopressor] 12.5 mg PO BID 01/05/17 [History] Hydrocodone/Acetaminophen [Hydrocodon-Acetaminophen 5-325] 1 tab PO TID PRN [History] ALPRAZolam [Xanax 0.5 MG Tablet] 0.5 mg PO DAILY PRN 05/10/18 [History] Carbidopa/Levodopa [Carbidopa-Levodopa 25-100 Tab] 1 tab PO TID 05/10/18 [ History] Lidocaine Patch [Lidoderm 5% patch] 1 each TP DAILY PRN 05/10/18 [History] Nitroglycerin [Nitrostat] 0.4 mg PO AD 05/10/18 [History] Allergies/Adverse Reactions: 3 Allergy/AdvReac Type Severity Reaction Status Date / Time No Known Allergies Allergy Verified 05/10/18 16:55 Date of admission: 05/10/18 17:40 Primary care physician: Bj Card MD Discharging clinician: Navid Carrasco Anticipated date of discharge: 05/10/18 - Constitutional Vitals: Temp Pulse Resp BP Pulse Ox 99.4 F 62 16 151/65 97 05/10/18 19:50 05/10/18 19:50 05/10/18 19:50 05/10/18 19:50 05/10/18 19:50 General appearance: Present: A&O X 3 Exam: . - Patient Status Disposition: Transfer Critical Access Hosp Condition: Good Functional capacity at discharge: independent ambulation Overall status at discharge: patient is not back to baseline - Discharge Instructions Forms: ED Satisfaction Letter
[2018-05-10 20:55] VITALS: BP 113/68
[2018-05-10] MEDS ORDERED: Carbidopa/Levodopa 25/100 TABLET PO SCH (21:00)
--- NOTE | 2018-05-11 21:57 | Electrocardiograph Report ---
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
== END 2018-05-10 21:56 | disposition critical access hospital (66) ==
LOC: EMEROOARM 14:54 → 3BNU 14:54
PROVIDERS: ADMIT Internal Medicine; ATTEND Internal Medicine